=== PATIENT | female | born 1955 | race Caucasian/White ===

== ENCOUNTER 2021-11-16 07:57 | Outpatient (REF) | payer MEDICARE, SELFPAY ==
--- NOTE | ~2021-11-16 | MM_ITS ---
EXAMINATION: MM SCREENING DIGITAL BREAST TOMOSYNTHESIS, BILATERAL CLINICAL INFORMATION: Screening. Asymptomatic. The lifetime risk of breast cancer based on the Tyrer-Cuzick Model is 8%. COMPARISON: Mammography: None TECHNIQUE: Digital breast tomosynthesis is performed in both the craniocaudal and mediolateral oblique views along with computer-aided detection (CAD). Synthesized 2D images are generated from the tomosynthesis. FINDINGS: There are scattered areas of fibroglandular density (ACR BI-RADS breast composition Category b). There is a grouping of calcifications seen within the upper outer aspect of the right breast but which on tomographic views are seen to be vascular in nature. No abnormal dominant mass is appreciated. MM/MM tomosynthesis screening BI IMPRESSION: No mammographic evidence of malignancy. ASSESSMENT: BI-RADS 2: Benign RECOMMENDATION: Routine annual mammography screening. This patient's information was entered into a reminder system with a target due date for their next mammogram.
[2021-11-16 09:25] LABS: Alanine Aminotransferase 48 U/L (0-31); Albumin Level 4.5 g/dL (3.5-5.0); Alkaline Phosphatase 60 U/L (39-117); Anion Gap 11 (12-20); Aspartate Amino Transferase 37 U/L (5-31); Bilirubin Total 0.9 mg/dL (0.0-1.0); Blood Urea Nitrogen 14 mg/dL (9-16); Calcium 9.4 mg/dL (8.4-10.2); Carbon Dioxide 28 mmol/L (22-29); Chloride 105 mmol/L (96-108); Cholesterol 275 mg/dL; Estimated Glomerular Filt Rate 58; Glucose Fasting 118 mg/dL (60-99); HDL Cholesterol 56 mg/dL; LDL Cholesterol Calculated 202 mg/dl; Potassium 5.3 mmol/L (3.3-5.1); Sodium 139 mmol/L (135-145); Total Protein 7.2 g/dL (6.5-8.0); Triglycerides 89 mg/dL
== END 2021-11-16 07:58 | disposition home or self-care (01) ==
LOC: HO.MAMMO 07:57
PROVIDERS: PCP Internal Medicine; Visit Provider Internal Medicine
DX: Z00.00 Encounter for general adult medical examination without abnormal findings (principal); Z12.31 Encounter for screening mammogram for malignant neoplasm of breast
CPT/HCPCS: 36415; 77063; 77067; 80053; 80061

== ENCOUNTER 2022-06-13 09:25 | Outpatient (REF) | payer MEDICARE, SELFPAY ==
[2022-06-13 10:18] LABS: Alanine Aminotransferase 20 U/L (0-31); Albumin Level 4.6 g/dL (3.5-5.0); Alkaline Phosphatase 52 U/L (39-117); Anion Gap 15 (12-20); Aspartate Amino Transferase 21 U/L (5-31); Bilirubin Total 0.6 mg/dL (0.0-1.0); Blood Urea Nitrogen 12 mg/dL (9-16); Calcium 9.7 mg/dL (8.4-10.2); Carbon Dioxide 26 mmol/L (22-29); Chloride 104 mmol/L (96-108); Cholesterol 280 mg/dL; Estimated Glomerular Filt Rate > 60; Glucose Fasting 111 mg/dL (60-99); HDL Cholesterol 64 mg/dL; LDL Cholesterol Calculated 200 mg/dl; Potassium 4.9 mmol/L (3.3-5.1); Sodium 140 mmol/L (135-145); Total Protein 6.9 g/dL (6.5-8.0); Triglycerides 81 mg/dL
== END 2022-06-13 09:26 | disposition home or self-care (01) ==
LOC: HO.LAB 09:25
PROVIDERS: PCP Internal Medicine; Visit Provider Internal Medicine
DX: R73.02 Impaired glucose tolerance (oral) (principal); E78.5 Hyperlipidemia, unspecified
CPT/HCPCS: 36415; 80053; 80061

== ENCOUNTER 2022-10-20 13:51 | Outpatient (REF) | payer MEDICARE, SELFPAY ==
--- NOTE | ~2022-10-20 | XR_ITS ---
EXAMINATION: XR KNEE, RIGHT CLINICAL INFORMATION: Pain. COMPARISON: None available. TECHNIQUE: AP and lateral views of the right knee. FINDINGS: Bony alignment and mineralization are normal. The lateral, medial and patellofemoral joint space compartments are well-maintained. There is minimal peripheral osteophyte formation of the medial patellofemoral compartments. No fracture, dislocation or joint effusion is seen. There is no foreign body XR/XR knee RT 2V IMPRESSION: 1. There is minimal osteoarthritic change of the medial and patellofemoral joint space compartments of the right knee. 2. No right knee fracture, dislocation or joint effusion is seen.
== END 2022-10-20 13:52 | disposition home or self-care (01) ==
LOC: HO.XRAY 13:51
PROVIDERS: PCP Internal Medicine; Visit Provider Internal Medicine
DX: M25.561 Pain in right knee (principal)
CPT/HCPCS: 73560

== ENCOUNTER 2022-10-27 09:42 | Outpatient (REF) | payer MEDICARE, SELFPAY | END 2022-10-27 09:43 | disposition home or self-care (01) | LOC: HO.LAB 09:42 | PROVIDERS: PCP Internal Medicine; Visit Provider Internal Medicine | DX: I10 Essential (primary) hypertension (principal); E78.5 Hyperlipidemia, unspecified | CPT/HCPCS: 36415; 80053; 80061 ==

== ENCOUNTER 2022-11-08 08:53 | Outpatient (AMB) | payer MEDICARE, SELFPAY ==
[2022-11-08 08:55] VITALS: BP 148/82; PULSE 84; O2SAT 97; BMI 35.6
--- NOTE | 2022-11-08 08:55 | AM.OFFVISMDC ---
Intake Vital Signs 11/08/22 08:55 Height 5 ft 3 in Weight 201 lb BMI 35.6 BP 148/82 H Blood Pressure Location Lt brachial Position Sitting Pulse 84 Pulse Source Pulse Oximeter Temp Source Skin Pulse Oximetry (%) 97 Oxygen Delivery Method Room Air Intake Visit Reasons: AWV Intake Note: Patient is here for an Annual Wellness Visit. 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 Patient Dr. Doanto. Patient has an upcoming mammogram 11/2022. Patient has declined colon cancer screening such as colonoscopy or Cologuard and bone density screening. She denies changes in bowels. Up-to-date with immunizations. Patient reports history of partial hysterectomy, she does not know which organs she has left, reports last Pap smear about 16 years ago, will refer to Gynecology for an evaluation and a possible Pap smear, patient reports history of slightly abnormal Pap smears in the past. [place] of care was reviewed with the patient and she was provided with a screening schedule. End of life planning was discussed with the patient and she was provided with healthcare proxy and MOLST forms. [facility] Medical History Periorbital cellulitis of right eye Surgical History History of partial hysterectomy Family History Mother Stroke Father No problems noted. Social History Housing: House Alcohol intake: current Alcohol intake frequency: holidays/special occasions only Alcohol type: hard liquor Patient Tobacco Use Status: Former Tobacco user Tobacco use type: Cigarette e-Cigarette/Vaping Use: Never Used Second Hand Smoke Exposure: No service: No Current occupational status: unemployed Cognitive needs: No Hearing needs: No Vision needs: No Questionnaire Medicare Wellness Checkup [age] 65-70 What gender do you identify with?: female During the past 4 weeks, how much have you been bothered by emotional problems such as feeling anxious, depressed, irritable, sad or downhearted, and blue?: not at all During the past 4 weeks, has your physical & emotional health limited your social activities with family, friends, neighbors, or groups?: not at all During the past 4 weeks, how much bodily pain have you generally had?: severe pain During the past 4 weeks, was someone available to help you if you needed & wanted help?: yes, as much as I wanted During the past 4 weeks, what was the hardest physical activity you could do for at least 2 minutes?: very heavy Can you get to places out of walking distance without help? (For eg., can you travel alone on buses, taxis or drive your car?): Yes Can you go shopping for groceries or clothes without someone's help?: Yes Can you prepare your own meals?: Yes Can you do your housework without help?: Yes Because of any health problems, do you need the help of another person with your personal care needs such as eating, bathing, dressing or getting around the house?: No Can you handle your own money without help?: Yes During the past 4 weeks, how would you rate your health in general?: excellent During the past 4 weeks how have things been going for you?: very well; could hardly better Are you having difficulties driving your car?: no During past 4 weeks, have you been bothered by the following: never: Falling or dizzy when standing up, Sexual problems?, Trouble eating well?, Teeth or denture problems?, Problems using the telephone? and Tiredness or fatigue? Have you fallen 2 or more times in the past year?: No Are you afraid of falling?: No Are you a smoker?: no During the past 4 weeks, how many drinks of wine, beer, or other alcoholic beverages did you have?: no alcohol at all Do you exercise for about 20 minutes 3 or more times a week?: yes, most of the time Have you been given information to help with the following?: no: Hazards in your house that might hurt you? and no: Keeping track of your medications? How often do you have trouble taking medicines the way you have been told to take them?: I always take medicine as prescribed How confident are you that you can control & manage most of your health problems?: very confident What is your race?: White Mini Mental State Exam (MMSE) Orientation What is the (year) (season) (date) (day) (month)?: year, season, date, day and month Score Score: 5 Activity of Daily Living Bathing - sponge bath, tub bath or shower: receives no assistance (gets in/out by self, if usual bathing means Dressing - getting clothes from closets & drawers, including inner/outer garments & fasteners.: gets clothes & gets completely dressed without help Toileting - going to the 'toilet room' for urine/bowel elimination & cleaning self/arranging clothes: goes to toilet room, cleans self, arranges clothes without help Transfer: moves in & out of bed and chair without help (may use support object) Continence: controls urination/bowel movements completely by self Feeding: feeds self without help Total Score: 0 Information obtained from: patient Using telephone: independent Traveling: independent Shopping: independent Preparing meals: independent Housework: independent Taking medicine: independent Managing money: independent PHQ-9 Over the last 2 weeks, how often have you been bothered by any of the following problems? 1. Little interest or pleasure in doing things: not at all 2. Feeling down, depressed, or hopeless: not at all 3. Trouble falling or staying asleep, or sleeping too much: not at all 4. Feeling tired or having little energy: not at all 5. Poor appetite or overeating: not at all 6. Feeling bad about yourself - or that you are a failure or have let yourself or your family down: not at all 7. Trouble concentrating on things, such as reading the newspaper or watching television: not at all 8. Moving or speaking so slowly that other people could have noticed. Or the opposite - being so fidgety or restless that you have been moving around a lot more than usual: not at all 9. Thoughts that you would be better off or of hurting yourself in some way: not at all Total score: 0 Depression Screening Interpretation: Negative 50751 - PHQ-9 Billing: Yes Source: Developed by Drs. Chaz Mitchell, Tina Tobin, Elias Chen and colleagues, with an educational corinna from [employer]. EUNICE-7 AMB Questionnaire EUNICE-7 Date EUNICE - 7 assessed: 11/08/22 Feeling nervous, anxious, or on edge: 0 = Not at all Not being able to stop or control worryin = Not at all Worrying too much about different things: 0 = Not at all Trouble relaxin = Not at all Being so restless that it is hard to sit still: 0 = Not at all Becoming easily annoyed or irritable: 0 = Not at all Feeling afraid as if something awful might happen: 0 = Not at all Total EUNICE-7 score (0-4 normal; 5-9 mild; 10-14 moderate; 15-21 severe): 0 Source: Developed by Drs. Chaz Mitchell, Elias Jha and colleagues, with an educational corinna from [employer]. EUNICE-7 Assessment Billing EUNICE-7 Assessment Tool: EUNICE-7 Assessment 91241 AUDIT C Alcohol Use Questionnaire (AUDIT-C) 1. How often do you have a drink containing alcohol?: Never 3. How often do you have six or more drinks on one occasion?: Never Total Score: 0 Score Reviewed/Action Taken: No Thrive Questionnaire Date Thrive assessed: 06/13/22 Physical Exam Vital Signs: Last Vital Signs Pulse 84 11/08/22 08:55 BP 148/82 H 11/08/22 08:55 Pulse Ox 97 11/08/22 08:55 Oxygen Delivery Method Room Air 11/08/22 08:55 BMI result Body Mass Index 35.6 Const General: cooperative and no acute distress Orientation/consciousness: patient oriented x3 HEENT Other: Whisper test: pass Neuro Other: Balance: Normal Get up and walk: able to Romberg: negative Tandem gait: able to General: patient oriented x3 Assessment & Plan Assessment & Plan (1) Cervical cancer screening: Code(s): Z12.4 - Encounter for screening for malignant neoplasm of cervix (2) Essential hypertension: Code(s): I10 - Essential (primary) hypertension Plan: Goal BP equal or less than 140/90 Continue losartan Low-sodium diet and weight loss (3) Obesity (BMI 35.0-39.9 without comorbidity): Code(s): E66.9 - Obesity, unspecified Plan: Healthy food choices and exercise as tolerated (4) Mixed hyperlipidemia: Code(s): E78.2 - Mixed hyperlipidemia Plan: Continue atorvastatin Low-cholesterol diet and weight loss (5) Physical exam: Code(s): Z00.00 - Encounter for general adult medical examination without abnormal findings (6) Colonoscopy refused: Code(s): Z53.20 - Procedure and treatment not carried out because of patient's decision for unspecified reasons 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 Z12.4 - Encounter for screening for malignant neoplasm of cervix Quality Reporting (2019) Fall Risk Screening ([facility] 139) Last assessed Fall Risk: 11/08/22 Fall risk assessment: No Falls in past year Depression/Bipolar (159/160/161/177) PHQ-9: Total score: 0 Coding Level of Care Code Medicare First (G0438) Diagnoses Cervical cancer screening Z12.4 Essential hypertension I10 Obesity (BMI 35.0-39.9 without comorbidity) E66.9 Mixed hyperlipidemia E78.2 Physical exam Z00.00 Colonoscopy refused Z53.20 CPT Codes Advance Care Planning - Time spent: 1-15 minutes, not on file ([id number]) Additional Codes EUNICE-7 Assessment Billing - EUNICE-7 Assessment Tool: EUNICE-7 Assessment 78057 ([id number]) Advance Care Planning Date of discussion: 11/08/22 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
== END 2022-11-08 09:21 | disposition home or self-care (01) ==
PROVIDERS: Visit Provider Nurse Practitioner Family
DX: Z00.00 Encounter for general adult medical examination without abnormal findings (principal); I10 Essential (primary) hypertension; Z68.35 Body mass index [BMI] 35.0-35.9, adult; E66.9 Obesity, unspecified; E78.2 Mixed hyperlipidemia; Z53.20 Procedure and treatment not carried out because of patient's decision for unspecified reasons
CPT/HCPCS: 1124F; G0438

== ENCOUNTER 2022-12-02 07:58 | Outpatient (REF) | payer MEDICARE, SELFPAY | END 2022-12-02 07:59 | disposition home or self-care (01) | LOC: HO.MAMMO 07:58 | PROVIDERS: PCP Internal Medicine; Visit Provider Internal Medicine | DX: Z12.31 Encounter for screening mammogram for malignant neoplasm of breast (principal) | CPT/HCPCS: 77063; 77067 ==

== ENCOUNTER → 2022-12-02 08:15 | Outpatient (BNV) | payer MEDICARE, SELFPAY | PROVIDERS: PCP Internal Medicine; Visit Provider Radiology Diagnostic Radiology | DX: Z12.31 Encounter for screening mammogram for malignant neoplasm of breast (principal) | CPT/HCPCS: 77063; 77067 ==

== ENCOUNTER 2023-03-22 07:52 | Outpatient (AMB) | payer MEDICARE, SELFPAY ==
[2023-03-22 07:59] VITALS: BP 150/70; PULSE 65; O2SAT 96; BMI 35.1
--- NOTE | 2023-03-22 07:59 | MHC.PC.OV ---
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 Accompanied by: Self / Same As Patient Allergies No Known Allergies Allergy (Verified 03/22/23 08:07) Medication List - Last Reconciled 03/22/23 by Bette Casillas MD atorvastatin 20 mg PO BEDTIME 90 days blood pressure monitor As directed losartan 25 mg PO DAILY 90 days Tobacco use date assessed: 06/13/22 Fall risk assessment: No Falls in past year Last assessed Fall Risk: 03/22/23 Dental Screening Dental Screen Date: 03/22/23 Did you have a dental visit in the last 12 months?: Yes Did you have a dental problem in the last 6 months where you did not have access to dental care?: No Was dental information given to patient?: Patient has dentist HPI HPI Comments History of Present Illness Details This is a 67-year-old female with hypertension, pure hypercholesterolemia and impaired glucose tolerance that complains of right leg pain that has been present for a few months crampy like in quality. This is aggravated by walking and was severe the past few days which has improved on its own. Will order ultrasound duplex to rule out DVT. Blood pressure elevated today and she did took her losartan. Blood pressure will be recheck in 3 weeks by nurse navigator. Last cholesterol was markedly improved with statins. Has elevated fasting blood glucose due to impaired glucose tolerance but denies any polyuria or polydipsia or unintentional weight loss. Fasting blood glucose will be repeated. [facility] Medical History (Updated 03/22/23 @ 08:15 by Bette Casillas MD) Periorbital cellulitis of right eye Surgical History History of partial hysterectomy Family History Mother Stroke Father No problems noted. Social History Housing: House Alcohol intake: current Alcohol intake frequency: holidays/special occasions only Alcohol type: hard liquor Patient Tobacco Use Status: Former Tobacco user Tobacco use type: Cigarette e-Cigarette/Vaping Use: Never Used Second Hand Smoke Exposure: No service: No Current occupational status: unemployed Cognitive needs: No Hearing needs: No Vision needs: No Questionnaire Thrive Questionnaire Date Thrive assessed: 06/13/22 EUNICE-7 AMB Questionnaire EUNICE-7 Date EUNICE - 7 assessed: 11/08/22 Source: Developed by Drs. Chaz Mitchell, Tina Tobin, Elias Chen and colleagues, with an educational corinna from [employer]. Review of Systems Const All systems reviewed & are unremarkable except as noted in HPI and below Eyes Reports no additional complaints, Denies change in vision and Denies other visual disturbances Card Denies chest pain at rest, Denies chest pain with activity, Denies edema, Denies irregular heart rhythm, Denies claudication, Denies dyspnea, Denies dyspnea on exertion, Denies orthopnea, Denies paroxysmal nocturnal dyspnea and Denies slow heart rate Resp Denies cough, Denies dyspnea and Denies dyspnea on exertion GI Denies abdominal pain, Denies change in bowel habits, Denies excessive flatus, Denies nausea and Denies vomiting Denies urinary incontinence, Denies urinary hesitancy and Denies urinary urgency Musc Denies abnormal gait, Denies atrophy, Denies deformity and Denies limited range of motion Skin/Breast Denies bleeding lesions, Denies changing lesions and Denies rash Neuro Denies abnormal gait and Denies lack of coordination Physical exam (Primary Care) Vital Signs: Last Vital Signs Pulse 65 03/22/23 07:59 BP 150/70 H 03/22/23 07:59 Pulse Ox 96 03/22/23 07:59 Oxygen Delivery Method Room Air 03/22/23 07:59 BMI result Body Mass Index 35.1 Tobacco/Smoking Status: Tobacco use Status Tobacco use date assessed 06/13/22 03/22/23 08:03 Patient Tobacco Use Status Former Tobacco user 03/22/23 08:03 Tobacco use type Cigarette 03/22/23 08:03 e-Cigarette/Vaping Use Never Used 03/22/23 08:03 Thrive Assessment: Date of Thrive Assessment Date Thrive assessed 06/13/22 03/22/23 08:03 Eyes General: appearance normal, both eyes and all related structures Eyelids: Yes eyelids normal Conjunctivae: conjunctivae normal Neck Neck: Yes normal visual inspection and Yes supple Resp Effort & Inspection: normal respiratory effort Auscultation: clear to auscultation bilaterally Cardio Jugular venous distension: no JVD Rate: regular rate Rhythm: regular rhythm Heart sounds: S1 normal heart sound present and S2 normal heart sound present Extrem General: Yes full ROM Office Procedures Flu Questionnaire Does the patient have a severe egg allergy?: No Does the patient have severe life threatening allergies?: No Does the patient have a fever or illness today?: No Has the patient ever had Guillain-Sneads Syndrome?: No Has the patient ever had any past reaction to a flu shot?: No Immunizations flu vacc [id number] 6mos up(PF) 60 mcg(15 mcgx4)/0.5 mL IM syringe Performing Provider: Bette Casillas MD Performing Location: [facility] Administered by: YOVANY Mae on 03/22/23 08:23 Dose Route Admin Location Dispensed Lot Number Expiration Date NDC Bean Snapper 0.5 mL IM Left Deltoid 0.5 mL [id number] 10/22/23 84714-653-55 Donews VIS Given Date VIS Provided VIS Publication Date 03/22/23 Single Vaccine 20 Eligibility Eligibility Date Funding Source Not [facility] Eligible 03/22/23 Private Assessment and Plan Assessment & Plan (1) Impaired glucose tolerance: Code(s): R73.02 - Impaired glucose tolerance (oral) Plan: Repeat fasting blood glucose. (2) Essential hypertension: Code(s): I10 - Essential (primary) hypertension Plan: Continue losartan. Blood pressure goal is equal or less than 130/80. Blood pressure will be recheck in 3 weeks by nurse navigator. (3) Pure hypercholesterolemia: Code(s): E78.00 - Pure hypercholesterolemia, unspecified Plan: Continue statins. (4) Right leg pain: Code(s): M79.604 - Pain in right leg Plan: Ultrasound venous Doppler ordered to rule out DVT. Orders: Orders US venous duplex LE RT Today M79.604 - Pain in right leg Comprehensive [place]. Panel Fast Today R73.02 - Impaired glucose tolerance (oral) Influenza [id number] Immunization Today Z23 - Encounter for immunization Magnesium Today R25.2 - Cramp and spasm Medications: Refilled atorvastatin 20 mg PO BEDTIME 90 days 90 tabs 1RF E78.00 - Pure hypercholesterolemia, unspecified losartan 25 mg PO DAILY 90 days 90 tabs 1RF I10 - Essential (primary) hypertension Coding Level of Care Code Est Pt Level 4 (95505) Diagnoses Impaired glucose tolerance R73.02 Essential hypertension I10 Pure hypercholesterolemia E78.00 Right leg pain M79.604 Time Spent (min) 23
[2023-03-22 08:35] VITALS: BP 150/70
== END 2023-03-22 08:23 | disposition home or self-care (01) ==
PROVIDERS: PCP Internal Medicine; Visit Provider Internal Medicine
DX: R73.02 Impaired glucose tolerance (oral) (principal); I10 Essential (primary) hypertension; E78.00 Pure hypercholesterolemia, unspecified; M79.604 Pain in right leg; Z23 Encounter for immunization
CPT/HCPCS: 90471; 90686; 99214

== ENCOUNTER 2023-03-22 08:46 | Outpatient (REF) | payer MEDICARE, SELFPAY ==
--- NOTE | ~2023-03-22 | US_ITS ---
EXAMINATION: US VENOUS ULTRASOUND WITH DOPPLER LOWER EXTREMITY, RIGHT CLINICAL INFORMATION: Right leg pain COMPARISON: None available. TECHNIQUE: Ultrasound of the deep veins is performed from the hip to the calf with compression sonography and color and pulse Doppler assessment. Spectral analysis with color-flow imaging is performed. FINDINGS: There is normal venous compression and respiratory variation and augmented flow. The visualized common femoral vein, superficial femoral vein, profunda femoral vein, popliteal vein, and the trifurcation region shows no evidence of deep venous thrombosis. A complex Meyer's cyst is noted measuring approximately 4 x 1.1 x 2.9 cm. If the patient's symptoms persist, followup ultrasound in 5 days 7 days might be of value to exclude proximal propagation from a non-visualized calf vein. US/US venous duplex LE RT IMPRESSION: No DVT demonstrated in the right lower extremity. Complex Meyer's cyst.
== END 2023-03-22 08:47 | disposition home or self-care (01) ==
LOC: HO.US 08:46
PROVIDERS: PCP Internal Medicine; Visit Provider Internal Medicine
DX: M79.604 Pain in right leg (principal)
CPT/HCPCS: 93971

== ENCOUNTER → 2023-04-18 09:57 | Outpatient (BNVA) | payer MEDICARE, SELFPAY | PROVIDERS: PCP Internal Medicine; Visit Provider Orthopaedic Surgery ==

== ENCOUNTER 2023-05-03 10:40 | Outpatient (REF) | payer MEDICARE, SELFPAY ==
[2023-05-06 13:39] LABS: HPV mRNA E6/E7 rflx Not Detected (Not Detected)
== END 2023-05-03 10:41 | disposition home or self-care (01) ==
LOC: HO.LNP 10:40
PROVIDERS: PCP Internal Medicine; Visit Provider Advanced Practice Midwife
DX: Z01.419 Encounter for gynecological examination (general) (routine) without abnormal findings (principal); Z86.001 Personal history of in-situ neoplasm of cervix uteri
CPT/HCPCS: 87624; 88142; G0101

== ENCOUNTER 2023-05-03 10:40 | Outpatient (AMB) | payer MEDICARE, SELFPAY ==
--- NOTE | 2023-05-03 10:50 | A.OFFVIS_ITS ---
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 She is doing well with no concerns. Attempting to eat a healthy. She has limited activity level with her Meyer's cyst. Currently not sexually active in 15 yrs. Denies any vaginal dryness or irritation. Last pap smear; 11 yrs. ago. Carcinoma in situ- hyst. Last mammogram; 2022. Colonoscopy is not UTD, she declines. FH maternal aunt with breast cancer. [facility] Medical History High blood pressure Periorbital cellulitis of right eye Surgical History (Updated 05/03/23 @ 12:14 by Kiley Tse CNM) Hx of section History of partial hysterectomy Family History Mother Stroke Father No problems noted. Maternal Aunt Breast cancer Social History Housing: House Alcohol intake: current Alcohol intake frequency: holidays/special occasions only Alcohol type: hard liquor Patient Tobacco Use Status: Former Tobacco user Tobacco use type: Cigarette e-Cigarette/Vaping Use: Never Used Second Hand Smoke Exposure: No service: No Current occupational status: unemployed Cognitive needs: No Hearing needs: No Vision needs: No Female Reproductive History Menstrual Age of Menarche: 17 control method: permanent sterilization Total pregnancies: 2 Full term: 2 Number of Living Children: 3 Multiple births: 1 Date of last pap smear: 06/13/08 (negative) History of abnormal pap smear: Yes (2005 HUSAM 3, 2004 HGSIL, 2003 HUSAM 1, 2002 ASCUS) Date of Mammogram: 12/02/22 Review of Systems Const All systems reviewed & are unremarkable except as noted in HPI and below Reports as per HPI Eyes Reports no additional complaints ENT Reports no additional complaints Card Reports no additional complaints Resp Reports no additional complaints GI Reports as per HPI and Reports no additional complaints Reports as per HPI Musc Reports no additional complaints Skin/Breast Reports as per HPI Neuro Reports no additional complaints Psych Reports no additional complaints Endo Reports no additional complaints Oneil/Lymph Reports no additional complaints Aller/Immun Reports no additional complaints Physical Exam Vital Signs: Last Vital Signs BP 142/72 H 05/03/23 10:51 BMI result Body Mass Index 34.3 Const General: cooperative, healthy appearing, no acute distress, well developed and alert Orientation/consciousness: patient oriented x3 HEENT Head: Yes normal to inspection Eyes General: appearance normal, both eyes and all related structures Neck Neck: Yes normal visual inspection Thyroid: Thyroid normal Chest Chest palpation & inspection: normal inspection of the chest and other (no puckering, dimpling, peau de orange, retraction, discharge, masses) Breast/axilla inspection: normal inspection of the breasts Breast/axilla palpation: normal palpation of the breasts Resp Effort & Inspection: normal respiratory effort GI Inspection: Yes normal to inspection and Yes scar Palpation (GI): Soft to palpation Rectal Exam - Female: deferred General: Yes bladder normal to palpation External Female Exam: normal external appearance and normal appearance of the urethra Speculum Exam - Vagina: normal appearance of the vagina, normal palpation, normal vaginal discharge and vagina atrophic Speculum Exam - Cervix: normal appearance of the cervix and Cervix absent (Vaginal cuff no lesions or nodules, atrophic let slightly with Pap) Bimanual exam- vagina & uterus: normal bimanual exam, normal palpation, bladder normal to palpation and uterus absent Bimanual Exam- Adnexa, other: no masses Skin General skin exam: no rashes or lesions noted Rashes: no rashes Neuro General: patient oriented x3 Cognition (Neuro): normal cognition Extrem General: Yes normal to inspection Psych Attitude: cooperative Thought process: Normal thought process present Assessment & Plan Assessment & Plan (1) Encounter for well woman exam with routine gynecological exam: Code(s): Z01.419 - Encounter for gynecological examination (general) (routine) without abnormal findings Plan Discussed: Current recommendations for pap smears per ASCCP guidelines. Status post hysterectomy Pap for 25 years Q 3 years until 2030. Breast awareness, periodic self breast exams and yearly mammogram. Maintain a healthy lifestyle, well balanced diet including Calcium 1,200 mg and Vitamin D 600 IU daily, and routine exercise. Contact the office with any postmenopausal bleeding. All of her questions and concerns were addressed to the best of my ability. 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 This note is constructed using voice recognition software. While every effort has been made to ensure accuracy, web marketing assistant errors may have been included. Orders: Orders Pap Smear Today Z86.001 - Personal history of in-situ neoplasm of cervix uteri Coding Level of Care Code New Pt Prev Care >65yr (19420) Diagnoses Encounter for well woman exam with routine gynecological exam Z01.419
[2023-05-03 10:51] VITALS: BP 142/72; BMI 34.3
== END 2023-05-03 11:46 | disposition home or self-care (01) ==
LOC: HO.HWS 10:40
PROVIDERS: PCP Internal Medicine; Visit Provider Advanced Practice Midwife
DX: Z01.419 Encounter for gynecological examination (general) (routine) without abnormal findings (principal)
CPT/HCPCS: G0101

== ENCOUNTER 2023-11-07 20:39 | Emergency (ER) | payer MEDICARE, SELFPAY ==
--- NOTE | ~2023-11-07 | XR_ITS ---
EXAMINATION: XR KNEE, RIGHT CLINICAL INFORMATION: Worsening pain COMPARISON: None available. TECHNIQUE: Four views of the right knee. FINDINGS: There is loss of medial and patellofemoral compartment joint space with periarticular spurring. There are no loose bodies or joint effusion. No acute fracture or dislocation seen. There is no abnormal joint effusion. XR/XR knee RT 4V IMPRESSION: Mild degenerative changes medial and patellofemoral compartment. No visible acute fracture or dislocation seen.
--- NOTE | ~2023-11-07 | US_ITS ---
EXAMINATION: US VENOUS ULTRASOUND WITH DOPPLER LOWER EXTREMITY, RIGHT CLINICAL INFORMATION: Right lower extremity pain. COMPARISON: Venous ultrasound dated 03/22/2023. TECHNIQUE: Ultrasound of the deep veins is performed from the hip to the calf with compression sonography and color and pulse Doppler assessment. Spectral analysis with color-flow imaging is performed. FINDINGS: There is normal venous compression and respiratory variation and augmented flow. The visualized common femoral vein, superficial femoral vein, profunda femoral vein, popliteal vein, and the trifurcation region shows no evidence of deep venous thrombosis. There is no significant popliteal fossa cyst. The previously noted right popliteal fossa Meyer's cyst now appears increasingly solid, measuring 4.7 x 1.4 x 2.1 cm. If the patient's symptoms persist, followup ultrasound in 5 days 7 days might be of value to exclude proximal propagation from a non-visualized calf vein. US/US venous duplex LE RT IMPRESSION: 1. No DVT demonstrated in the right lower extremity. 2. The previously noted right popliteal fossa Meyer's cyst now shows a semisolid appearance, with calcifications. Question interim partial resorption or hemorrhage. This could be more fully evaluated with an MRI examination of the right knee, if clinically indicated.
[2023-11-07 20:47] VITALS: BP 187/75; PULSE 77; RESP 18; TEMP 36.8; O2SAT 95; BMI 32.6
--- NOTE | 2023-11-07 20:48 | ED.LOWEXIN ---
HPI - Extremity Injury (Lower) General Chief Complaint: Extremity Injury, Lower Stated Complaint: R leg pain, no injury Time Seen by Provider: 11/07/23 23:31 Source: patient, family and old records reviewed Mode of arrival: ambulatory Limitations: no limitations History of Present Illness ED Provider: GALLO HPI Narrative: 68 yo female with PMH of HTN, HLD, asthma R knee pain has done months of PT and has had cortisone injections without sig improvement she had PT today that worsened pain no numbness, weakness, no new falls. She cannot take much more of this and is not getting better. complaint: knee injury Onset (ago): month(s) Injury: Right: knee Place: home Severity: moderate Relieving factors: rest Exacerbating factors: movement Other symptoms: none Treatments prior to arrival: other Related Data Previous Rx's ?Medication ?Instructions ?Recorded blood pressure monitor #1 ea 11/18/21 atorvastatin 20 mg tablet 20 mg PO BEDTIME 90 days #90 tabs 06/08/23 losartan 25 mg tablet 25 mg PO DAILY 90 days #90 tabs 06/08/23 diclofenac sodium 1 % topical gel 2 g topical QID #100 grams 11/07/23 (Voltaren Arthritis Pain) Allergies Allergy/AdvReac Type Severity Reaction Status Date / Time No Known Allergies Allergy Verified 11/07/23 20:49 Review of Systems Review of Systems: Constitutional : No Fever, No Chills ENT/Mouth : No Ear Pain, No Hoarseness, No sore throat Eyes: No Eye Pain, No Swelling, No Redness, No Foreign Body Cardiovascular : No Chest Pain, No SOB Respiratory : No Cough, No Dyspnea Gastrointestinal : No Nausea, No Vomiting, No Diarrhea, No abdominal Pain Genitourinary : No Dysuria, No Hematuria Musculoskeletal : positive joint pain, No Myalgias, No Joint Swelling Skin : No Skin lacerations, No rash Neuro : No Weakness, No Numbness, No Loss of Consciousness, No Dizziness, No Headache Psych : No Anxiety/Panic, No Depression All other systems reviewed and are negative [facility] Past Medical History Attestation statement: The following information was validated with the patient. Source: old records reviewed Medical History High blood pressure Periorbital cellulitis of right eye Surgical History Hx of section History of partial hysterectomy Family History Family History Mother Stroke Father No problems noted. Maternal Aunt Breast cancer Social History Social History Housing: House Alcohol intake: current Alcohol intake frequency: does not drink Alcohol type: hard liquor Patient Tobacco Use Status: Former Tobacco user Tobacco use type: Cigarette Smoked in Last 30 Days: No e-Cigarette/Vaping Use: Never Used Second Hand Smoke Exposure: No Use of substances other than those prescribed or required for medical reasons: No Advance Directives: No Advance Directives Information Provided: Yes Do you have a plan to hurt others: No Plan service: No Current occupational status: unemployed Cognitive needs: No Hearing needs: No Vision needs: No Physical Exam Vital Signs: Vital Signs: Last Vital Signs Temp 97.0 F 11/08/23 00:26 Pulse 77 11/08/23 00:26 Resp 16 11/08/23 00:26 BP 205/80 H 11/08/23 00:26 Pulse Ox 97 11/08/23 00:26 O2 Del Method Room Air 11/08/23 00:26 BMI result Body Mass Index 32.6 Appearance: Alert. Oriented X3. No acute distress. Eyes: Pupils equal, round and reactive to light. ENT: Pharynx normal. Neck: Normal inspection. Neck supple. CVS: Pulses normal. Respiratory: No respiratory distress. Abdomen: atraumatic Skin: Skin warm and dry. Normal skin color. Extremities: No lower extremity edema. R knee ttp medial meniscus no redness, warmth, small effusion noted, distal NV intact Neuro: Oriented X 3. No motor deficit. No sensory deficit. Course Course Course Narrative: This is a Rapid Medical Examination (RME) performed by Emma Aguirre PA-C in triage. Full HPI, ROS, assessment and treatment plan per primary provider in the Main ED. 68 yo female with history of RA and history of right sided Meyer's cyst presents to the ER for evalution of worsening RLE pain after working with PT today. reports feeling a swollen vein behind her knee. LE doppler showed bakers cyst in February. hx chronic knee pain, has gotten cortisone shot in the past and arthrocentesis in the past. Follows w/ Ortho in [place] Plan: LE doppler of the RLE Reevaluation(s) Reevaluation #1: asymptomatic HTN Medical Decision Making Medical Decision Making MDM Narrative: 68 yo female with PMH of HTN, HLD, asthma here with c/o worsening R knee pain post PT no signs of infection no trauma distal NV intact xrays and DVT study ordered she has done ample PT and injections will refer to our PT and discussed options of MRI with her PCP has not had MRI yet. Differential Diagnosis Differential Diagnoses: The differential diagnosis associated with the presentation includes arthritis, bakers cyst, DVT Independent Interpretation I performed an independent interpretation of an: Plain X-Ray (arthritis) and Ultrasound (no DVT) Radiology Impression Discussion of test interpretation with radiology: I have reviewed the radiologist's reading. Independent Historian Clinical information obtained from an independent historian. History obtained from or confirmed by: Spouse External Record Review External record reviewed: Office record Prescription Management I considered prescription management with: Pain Medication Discharge Plan Discharge Clinical Impression: Meyer's cyst of knee Qualifiers: Laterality: left Qualified Code(s): M71.22 - Synovial cyst of popliteal space [Meyer], left knee Chronic knee pain Qualifiers: Laterality: left Qualified Code(s): M25.562 - Pain in left knee Patient Disposition: Home, Self-Care Instructions: Bakers Cyst (ED), Arthralgia (ED) Additional Instructions: YOU NEED A MRI OF YOUR KNEE AT THIS POINT GIVEN THE CHANGE IN BAKERS CYST WELL NO IMPROVEMENT IN THE KNEE THERE COULD BE INTERNAL DERANGEMENT THAT NEEDS TREATMENT. CALL YOUR PRIMARY CARE OR ORTHOPEDIC DOCTOR TO GET THIS RETURN FOR ANY WORSENING SYMPTOMS OR CONCERNS FINDINGS: There is loss of medial and patellofemoral compartment joint space with periarticular spurring. There are no loose bodies or joint effusion. No acute fracture or dislocation seen. There is no abnormal joint effusion. XR/XR knee RT 4V IMPRESSION: Mild degenerative changes medial and patellofemoral compartment. No visible acute fracture or dislocation seen. US/US venous duplex LE RT IMPRESSION: 1. No DVT demonstrated in the right lower extremity. 2. The previously noted right popliteal fossa Meyer's cyst now shows a semisolid appearance, with calcifications. Question interim partial resorption or hemorrhage. This could be more fully evaluated with an MRI examination of the right knee Prescriptions: New diclofenac sodium [Voltaren Arthritis Pain] 1 % gel 2 g topical QID Qty: 100 0RF Rx Instructions: apply to single knee No Action atorvastatin 20 mg tablet 20 mg PO BEDTIME 90 Days Qty: 90 1RF losartan 25 mg tablet 25 mg PO DAILY 90 Days Qty: 90 1RF (DME) blood pressure monitor Kit See Rx Instructions .Route Qty: 1 0RF Rx Instructions: As directed Referrals: Patti Abraham PA-C [Physician Business Systems Advisor] - (our orthopedics team) Interventions: ED Discharge Assessment Last Done: 11/08/23 00:26 Discharge Date/Time: 11/08/23 00:28 Print Language: Italian
[2023-11-07 23:33] VITALS: BP 205/80; PULSE 77; RESP 16; TEMP 36.1; O2SAT 97
--- NOTE | 2023-11-07 23:40 | PC.NURSE ---
Pt ca&ox4, no signs of distress. Pt reports / rt leg pain, that became worse after PT Dr Oconnor aware of pts b/p. Pt reports hasnt taken home meds so reports b/p will be high. Pts at bedside. Plan of care ongoing.
[2023-11-08 00:26] VITALS: BP 205/80; PULSE 77; RESP 16; TEMP 36.1; O2SAT 97
== END 2023-11-08 00:28 | disposition home or self-care (01) ==
PROVIDERS: Emergency Provider Emergency Medicine; PCP Internal Medicine
DX: M71.21 Synovial cyst of popliteal space [Baker], right knee (principal); R60.0 Localized edema; M25.561 Pain in right knee
CPT/HCPCS: 73564; 93971; 99284

== ENCOUNTER 2023-11-28 12:55 | Outpatient (AMB) | payer MEDICARE, SELFPAY ==
--- NOTE | 2023-11-28 13:06 | AM.OFFVISMDC ---
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 Mammogram done less than a year ago was normal. Pap smear done few months ago was normal. Declines colonoscopy, Cologuard or fit does. Has never had a DEXA scan and I will order it. She complains of right knee pain and has not been able to walk. Had x-ray shows mild degeneration of knee. Had physical therapy with no improvement. Had local steroid injections with no improvement. I will refer her to ortho. She also has a stye in the right eye that started yesterday. She has elevated blood pressure that will be recheck in 3 weeks by nurse navigator. She is compliant with her medications. [facility] handed to patient. [facility] Medical History (Updated 11/28/23 @ 13:58 by Bette Casillas MD) High blood pressure Periorbital cellulitis of right eye Surgical History Hx of section History of partial hysterectomy Family History Mother Stroke Father No problems noted. Maternal Aunt Breast cancer Social History (Updated 11/28/23 @ 13:29 by Bette Casillas MD) Housing: House Alcohol intake: current Alcohol intake frequency: does not drink Alcohol type: wine Patient Tobacco Use Status: Former Tobacco user Tobacco use type: Cigarette e-Cigarette/Vaping Use: Never Used Second Hand Smoke Exposure: No service: No Current occupational status: unemployed Cognitive needs: No Hearing needs: No Vision needs: No Female Reproductive History Menstrual Age of Menarche: 17 Questionnaire Medicare Wellness Checkup What [age] 65-69 What gender do you identify with?: female During the past 4 weeks, how much have you been bothered by emotional problems such as feeling anxious, depressed, irritable, sad or downhearted, and blue?: not at all During the past 4 weeks, has your physical & emotional health limited your social activities with family, friends, neighbors, or groups?: not at all During the past 4 weeks, how much bodily pain have you generally had?: mild pain During the past 4 weeks, was someone available to help you if you needed & wanted help?: yes, as much as I wanted During the past 4 weeks, what was the hardest physical activity you could do for at least 2 minutes?: moderate Can you get to places out of walking distance without help? (For eg., can you travel alone on buses, taxis or drive your car?): Yes Can you go shopping for groceries or clothes without someone's help?: Yes Can you prepare your own meals?: Yes Can you do your housework without help?: Yes Because of any health problems, do you need the help of another person with your personal care needs such as eating, bathing, dressing or getting around the house?: No Can you handle your own money without help?: Yes During the past 4 weeks, how would you rate your health in general?: good During the past 4 weeks how have things been going for you?: pretty well Are you having difficulties driving your car?: no Do you always fasten your seat belt when you are in a car?: yes, usually During past 4 weeks, have you been bothered by the following: never: Falling or dizzy when standing up, Sexual problems?, Trouble eating well?, Teeth or denture problems?, Problems using the telephone? and Tiredness or fatigue? Have you fallen 2 or more times in the past year?: No Are you afraid of falling?: No Are you a smoker?: no During the past 4 weeks, how many drinks of wine, beer, or other alcoholic beverages did you have?: no alcohol at all Do you exercise for about 20 minutes 3 or more times a week?: yes, some of the time Have you been given information to help with the following?: yes: Hazards in your house that might hurt you? and yes: Keeping track of your medications? How often do you have trouble taking medicines the way you have been told to take them?: I always take medicine as prescribed How confident are you that you can control & manage most of your health problems?: very confident What is your race?: White Mini Mental State Exam (MMSE) Orientation What is the (year) (season) (date) (day) (month)?: year, season, date, day and month Where are we (state) (county) (town or city) (hospital) (floor)?: state, county, town or city, hospital/clinic and floor Registration Name of 3 unrelated objects clearly and slowly, then ask patient to repeat all 3 of them. (1st repeat determines score. Make sure they can repeat all three): object 1, object 2 and object 3 Attention & Calculation (CHOOSE ONE) Spell WORLD backwards (DLROW): 5 letters Recall Ask patient to repeat the 3 items from question #3.: object 1 and object 2 Language Show patient a wristwatch & ask what it is. Repeat for pencil.: watch and pencil Ask the patient to repeat the phrase 'No ifs, ands, or buts' after you.: correct Ask the patient to 'take a piece of paper with their right hand' 'fold paper in half' 'place paper on floor': take paper in right hand, fold paper in half and place paper on floor Print the sentence 'CLOSE YOUR EYES' on a piece. If patient actually closes eyes then score.: followed written direction Give patient a blank piece of paper & ask to write a sentence. Score if it contains a noun & verb.: sentence contains subject and verb Ask patient to copy figure of intersecting pentagons exactly. Score if all 10 angles & 2 intersects are included.: all 10 angles present & 2 are intersected Score Score: 29 Activity of Daily Living Bathing - sponge bath, tub bath or shower: receives no assistance (gets in/out by self, if usual bathing means Dressing - getting clothes from closets & drawers, including inner/outer garments & fasteners.: gets clothes & gets completely dressed without help Toileting - going to the 'toilet room' for urine/bowel elimination & cleaning self/arranging clothes: goes to toilet room, cleans self, arranges clothes without help Transfer: moves in & out of bed and chair without help (may use support object) Continence: controls urination/bowel movements completely by self Feeding: feeds self without help Total Score: 0 Information obtained from: patient Using telephone: independent Traveling: independent Shopping: independent Preparing meals: independent Housework: independent Taking medicine: independent Managing money: independent PHQ-9 Over the last 2 weeks, how often have you been bothered by any of the following problems? 1. Little interest or pleasure in doing things: not at all 2. Feeling down, depressed, or hopeless: not at all 3. Trouble falling or staying asleep, or sleeping too much: not at all 4. Feeling tired or having little energy: not at all 5. Poor appetite or overeating: not at all 6. Feeling bad about yourself - or that you are a failure or have let yourself or your family down: not at all 7. Trouble concentrating on things, such as reading the newspaper or watching television: not at all 8. Moving or speaking so slowly that other people could have noticed. Or the opposite - being so fidgety or restless that you have been moving around a lot more than usual: not at all 9. Thoughts that you would be better off or of hurting yourself in some way: not at all Total score: 0 Depression Screening Interpretation: Negative Depression Screening Done: Yes 97294 - PHQ-9 Billing: Yes Source: Developed by Drs. Chaz Mitchell, Tina Tobin, Elias Chen and colleagues, with an educational corinna from [employer]. AUDIT C Alcohol Use Questionnaire (AUDIT-C) 1. How often do you have a drink containing alcohol?: Never Total Score: 0 Score Reviewed/Action Taken: No Thrive Questionnaire Date Thrive assessed: 11/28/23 I am a: Patient What is your living situation today?: I have a steady place to live Within the past 12 months, did the food you bought not last and you didn't have the money to get more?: Never true Within the past 12 months, did you worry whether your food would run out before you got money to buy more?: Never true Do you have trouble paying for medicines?: No Do you have trouble getting transportation to medical appointments?: No Do you have trouble paying your heating and electricity bill?: No Do you have trouble taking care of your child, family member or friend?: No Do you have trouble with day-to-day activities such as bathing, preparing meals, shopping, managing finances, etc.?: No Are you currently unemployed and looking for a job?: No Are you interested in more education?: No Please select the resources that you would like help with: None Currently or been in a relationship where the following occur: No concerns reported THRIVE Score: 0 Fall Risk Assessment Fall Risk Assessment Fall risk assessment: No Falls in past year EUNICE-7 AMB Questionnaire EUNICE-7 Date EUNICE - 7 assessed: 11/28/23 Feeling nervous, anxious, or on edge: 0 = Not at all Not being able to stop or control worryin = Not at all Worrying too much about different things: 0 = Not at all Trouble relaxin = Not at all Being so restless that it is hard to sit still: 0 = Not at all Becoming easily annoyed or irritable: 0 = Not at all Feeling afraid as if something awful might happen: 0 = Not at all Total EUNICE-7 score (0-4 normal; 5-9 mild; 10-14 moderate; 15-21 severe): 0 Source: Developed by Drs. Chaz Mitchell, Tina Tobin, Elias Chen and colleagues, with an educational corinna from [employer]. EUNICE-7 Assessment Billing EUNICE-7 Assessment Tool: EUNICE-7 Assessment 15825 Review of Systems Const All systems reviewed & are unremarkable except as noted in HPI and below Card Denies chest pain at rest, Denies chest pain with activity, Denies edema, Denies irregular heart rhythm, Denies claudication, Denies dyspnea, Denies dyspnea on exertion, Denies orthopnea, Denies paroxysmal nocturnal dyspnea and Denies slow heart rate Resp Denies cough, Denies dyspnea and Denies dyspnea on exertion GI Denies abdominal pain, Denies change in bowel habits, Denies excessive flatus, Denies nausea and Denies vomiting Denies urinary incontinence, Denies urinary hesitancy and Denies urinary urgency Musc Denies abnormal gait, Denies atrophy, Denies deformity, Reports arthralgias and Denies limited range of motion Skin/Breast Denies bleeding lesions, Denies changing lesions and Denies rash Neuro Denies abnormal gait, Denies confusion and Denies lack of coordination Psych Denies confusion Physical Exam Vital Signs: Last Vital Signs BP 170/70 H 11/28/23 13:07 BMI result Body Mass Index 34.2 Const General: No confusion Orientation/consciousness: patient oriented x3 and No confusion Resp Effort & Inspection: normal respiratory effort Auscultation: clear to auscultation bilaterally Cardio Jugular venous distension: no JVD Rate: regular rate Rhythm: regular rhythm Heart sounds: S1 normal heart sound present and S2 normal heart sound present Neuro General: patient oriented x3, no focal motor deficits and No confusion Extrem General: Yes full ROM Right lower extremity: knee Details: tenderness and crepitus Assessment & Plan Assessment & Plan (1) Encounter for Medicare annual wellness exam: Code(s): Z00.00 - Encounter for general adult medical examination without abnormal findings Plan: Repeat in a year. (2) Hordeolum of right eye: Code(s): H00.013 - Hordeolum externum right eye, unspecified eyelid Qualifiers: Hordeolum type: externum Eyelid: upper Qualified Code(s): H00.011 - Hordeolum externum right upper eyelid Plan: Advised to do warm compresses. Start erythromycin ointment. (3) Chronic venous insufficiency of lower extremity: Code(s): I87.2 - Venous insufficiency (chronic) (peripheral) Plan: Referred to vascular surgery. (4) Right knee pain: Code(s): M25.561 - Pain in right knee Qualifiers: Chronicity: chronic Qualified Code(s): M25.561 - Pain in right knee; G89.29 - Other chronic pain Plan: Referred to Ortho. Orders: Orders XR DEXA axial skeleton Today N95.9 - Unspecified menopausal and perimenopausal disorder Lipid Panel Today E78.5 - Hyperlipidemia, unspecified Comprehensive [place]. Panel Fast Today E78.00 - Pure hypercholesterolemia, unspecified Referrals Orthopedics Referral M25.561 - Pain in right knee Vascular Surgery Referral I87.2 - Venous insufficiency (chronic) (peripheral) Medications: New erythromycin 1 appl ophthalmic-Right DAILY 7 days 3.5 grams 0RF H00.013 - Hordeolum externum right eye, unspecified eyelid Refilled losartan 25 mg PO DAILY 90 days 90 tabs 1RF I10 - Essential (primary) hypertension atorvastatin 20 mg PO BEDTIME 90 days 90 tabs 1RF E78.00 - Pure hypercholesterolemia, unspecified diclofenac sodium 1% (Voltaren Arthritis Pain) apply to single knee 2 grams topical QID 100 grams 0RF Quality Reporting (2019) Fall Risk Screening ([facility] 139) Fall risk assessment: No Falls in past year Depression/Bipolar (159/160/161/177) PHQ-9: Total score: 0 Coding Level of Care Code Medicare First (G0438) Est Pt Level 3 (50406) Diagnoses Encounter for Medicare annual wellness exam Z00.00 Hordeolum externum of right upper eyelid H00.011 Hordeolum type: externum Eyelid: upper Chronic venous insufficiency of lower extremity I87.2 Chronic pain of right knee M25.561; G89.29 Chronicity: chronic CPT Codes Advance Care Planning - Time spent: 1-15 minutes, on File ([id number]) Additional Codes EUNICE-7 Assessment Billing - EUNICE-7 Assessment Tool: EUNICE-7 Assessment 03570 ([id number]) Time Spent (min) 40 Advance Care Planning Advance Care Planning discussion: Exists, not on file Date of discussion: 11/28/23 Who was present: patient, patient's son and me Forms completed: Health Care Proxy Time spent: 1-15 minutes, on File Actual minutes spent: 2
[2023-11-28 13:07] VITALS: BP 170/70; BMI 34.2
== END 2023-11-28 13:53 | disposition home or self-care (01) ==
PROVIDERS: PCP Internal Medicine; Visit Provider Internal Medicine
DX: Z00.00 Encounter for general adult medical examination without abnormal findings (principal); H00.011 Hordeolum externum right upper eyelid; I87.2 Venous insufficiency (chronic) (peripheral); M25.561 Pain in right knee; G89.29 Other chronic pain
CPT/HCPCS: 1123F; 99213; G0438; G0439

== ENCOUNTER 2023-12-08 07:59 | Outpatient (REF) | payer MEDICARE, SELFPAY ==
--- NOTE | ~2023-12-08 | MM_ITS ---
EXAMINATION: MM SCREENING DIGITAL BREAST TOMOSYNTHESIS, BILATERAL CLINICAL INFORMATION: Screening. Asymptomatic. COMPARISON: Mammography: This study is compared with prior exams dating back to 2021. TECHNIQUE: Digital breast tomosynthesis is performed in both the craniocaudal and mediolateral oblique views along with computer-aided detection (CAD). Synthesized 2D images are generated from the tomosynthesis. FINDINGS: The breasts are almost entirely fatty (ACR BI-RADS breast composition Category a). There are no significant masses, abnormal calcifications, or other abnormalities. MM/MM tomosynthesis screening BI IMPRESSION: No mammographic evidence of malignancy. ASSESSMENT: BI-RADS BI-RADS 1 - Negative RECOMMENDATION: Routine annual mammography screening. 1 year F/U This examination should not preclude the clinical evaluation of a suspicious palpable abnormality. This patient's information was entered into a reminder system with a target due date for their next mammogram. Electronically signed by: Jesica Bourgeois MD 01/06/2024 03:20 PM EDT
== END 2023-12-08 08:00 | disposition home or self-care (01) ==
LOC: HO.MAMMO 07:59
PROVIDERS: PCP Internal Medicine; Visit Provider Internal Medicine
DX: Z12.31 Encounter for screening mammogram for malignant neoplasm of breast (principal)
CPT/HCPCS: 77063; 77067

== ENCOUNTER → 2023-12-08 08:30 | Outpatient (BNV) | payer MEDICARE, SELFPAY | PROVIDERS: PCP Internal Medicine; Visit Provider Radiology Diagnostic Radiology | DX: Z12.31 Encounter for screening mammogram for malignant neoplasm of breast (principal) | CPT/HCPCS: 77063; 77067 ==

== ENCOUNTER 2023-12-21 09:32 | Outpatient (AMB) | payer MEDICARE, SELFPAY ==
--- NOTE | 2023-12-21 09:33 | MHC.OFFVIS ---
Vital Signs 12/21/23 09:34 Height 5 ft 4 in Weight 199 lb BMI 34.2 Intake Visit Reasons: Right knee pain Intake Note: Oliva is a 68 year old female who presents with complaints of progressively worsening right knee pain and giving way. The patient describes her pain as sharp in nature. Most of the pain is along the medial aspect of her knee. Her pain has gotten worse over the last year in spite of continued non operative treatments. She has failed the last 6 weeks of conservative treatment. She has been to physical therapy which aggravated her pain. She has also had cortisone injections in the past. The most recent injection gave her only temporary relief. Most of the pain is along the medial aspect of the patient's knee. She states that her right knee will give out several times per day. The patient has been told that she might need total knee replacement surgery. She presents here for a 2nd opinion. Allergies No Known Allergies Allergy (Verified 12/21/23 09:34) Medication List - Last Reconciled 12/21/23 by Carlos Jordan MD atorvastatin 20 mg PO BEDTIME 90 days blood pressure monitor As directed diclofenac sodium 1% (Voltaren Arthritis Pain) 2 grams topical QID erythromycin 1 appl ophthalmic-Right DAILY 7 days losartan 25 mg PO DAILY 90 days [facility] Medical History High blood pressure Periorbital cellulitis of right eye Surgical History Hx of section History of partial hysterectomy Family History Mother Stroke Father No problems noted. Maternal Aunt Breast cancer Social History (Updated 11/28/23 @ 13:29 by Bette Casillas MD) Housing: House Alcohol intake: current Alcohol intake frequency: does not drink Alcohol type: wine Patient Tobacco Use Status: Former Tobacco user Tobacco use type: Cigarette e-Cigarette/Vaping Use: Never Used Second Hand Smoke Exposure: No service: No Current occupational status: unemployed Cognitive needs: No Hearing needs: No Vision needs: No Female Reproductive History Menstrual Age of Menarche: 17 Physical Exam Vital Signs: BMI result Body Mass Index 34.2 Const Other: Well-nourished well-developed very friendly female awake alert and oriented x3 in no acute distress Extrem Other: Bilateral lower extremity examination shows good capillary refill, no skin lesions noted, normal sensation light touch Right knee examination shows a minimal effusion, mild crepitus with range of motion, tenderness along her medial joint line, positive Susana's test, no instability Results Reviewed Results Reviewed: X-rays of the patient's right knee taken previously show joint space narrowing, subchondral sclerosis, no acute bony abnormalities Assessment & Plan Assessment & Plan (1) Right knee pain: Code(s): M25.561 - Pain in right knee Category: Medical Qualifiers: Chronicity: chronic Qualified Code(s): M25.561 - Pain in right knee; G89.29 - Other chronic pain Plan Ms. Rubin presents with progressively worsening right knee pain and mechanical symptoms due to degenerative joint disease as well as possible tearing of her medial meniscus. Thus, I will send the patient for an MRI of her right knee for further evaluation. I will see her back once the MRI is completed to discuss the findings and treatment options. Feel free to call me at any time should questions regarding her orthopedic management arise. Thank you very much for asking me to see this very friendly patient. I spent 21 minutes in reviewing the patient's records and imaging studies, seeing the patient and documenting in the medical record. Orders: Orders MR knee RT wo con Today S83.241A - Other tear of medial meniscus, current injury, right knee, initial encounter Coding Level of Care Code New Pt Level 3 (81771) Diagnoses Chronic pain of right knee M25.561; G89.29 Chronicity: chronic
[2023-12-21 09:34] VITALS: BMI 34.2
== END 2023-12-21 09:57 | disposition home or self-care (01) ==
PROVIDERS: PCP Internal Medicine; Visit Provider Orthopaedic Surgery
DX: M25.561 Pain in right knee (principal); G89.29 Other chronic pain
CPT/HCPCS: 99203

== ENCOUNTER → 2023-12-21 09:32 | Outpatient (BNVA) | payer MEDICARE, SELFPAY | PROVIDERS: PCP Internal Medicine; Visit Provider Orthopaedic Surgery | DX: M25.561 Pain in right knee (principal); G89.29 Other chronic pain | CPT/HCPCS: 99202 ==

== ENCOUNTER 2024-01-04 10:47 | Outpatient (REF) | payer MEDICARE, SELFPAY ==
--- NOTE | ~2024-01-04 | MM_ITS ---
EXAMINATION: BONE DENSITOMETRY CLINICAL INDICATION: Unspecified menopausal and perimenopausal disorder. COMPARISON: This is the patient's baseline examination. TECHNIQUE: Using a fitkit DXA System (software version: 13.1) manufactured by [employer], dual-energy x-ray absorptiometry was performed of the lumbar spine and left hip. The images are of good technical quality. Summary results are attached. FINDINGS: LEFT FEMUR, NECK: BMD 0.911 g/cm2, Z-score 0.2, T-score -0.9, normal. LEFT FEMUR, TOTAL: BMD 1.010 g/cm2, Z-score 0.8, T-score 0.0, normal. AP SPINE L1-L4: BMD 1.318 g/cm2, Z-score 2.1, T-score 1.2, normal. IDENTIFIED RISK FACTORS: Menopause, low calcium intake, hysterectomy. HISTORY OF FRACTURE: None listed. MEDICATIONS: None listed. MM/XR DEXA axial skeleton IMPRESSION: 1. DIAGNOSIS: Normal bone density based on the lowest T-score value of -0.9 in the femoral neck applying World Health Organization criteria. 2. 10-YEAR FRACTURE RISK PREDICTION, FRAX: According to the guidelines, FRAX calculation should only be performed on patients in the osteopenia bone density category. Therefore, FRAX was not performed on this patient. 3. Treatment Recommendations: NOF guidelines recommend consideration for treatment in postmenopausal women and men age 50 and older presenting with the following: -A hip or vertebral (clinical or morphometric) fracture. -T-score less than or equal to -2.5 at the femoral neck or spine after appropriate evaluation to exclude secondary causes. -Low bone mass at the hip or spine and a 10-year fracture probability by FRAX of greater than or equal to 3% for hip fracture or greater than or equal to 20% for major osteoporotic fracture based on the [place] adapted WHO algorithm. 4. Other Recommendations: All treatment decisions require clinical judgment and consideration of individual patient factors, including patient preferences, comorbidities, previous drug use, risk factors not captured in the FRAX model (e.g. frailty, falls, vitamin D deficiency, increased bone turnover, interval significant decline in bone density) and possible under or overestimation of fracture risk by FRAX. FUTURE SCAN RECOMMENDATION: People with diagnosed cases of osteoporosis or at high risk for fracture should have regular bone mineral density tests. For patients eligible for Medicare, routine testing is allowed once every 2 years. The testing frequency can be increased to one year for patients who have rapidly progressing disease, those who are receiving or discontinuing medical therapy to restore bone mass, or have additional risk factors. Electronically signed by: Adrian Gerber MD 01/09/2024 11:14 AM EDT
== END 2024-01-04 10:48 | disposition home or self-care (01) ==
LOC: HO.MAMMO 10:47
PROVIDERS: PCP Internal Medicine; Visit Provider Internal Medicine
DX: Z13.820 Encounter for screening for osteoporosis (principal); Z78.0 Asymptomatic menopausal state
CPT/HCPCS: 77080

== ENCOUNTER 2024-01-14 19:29 | Outpatient (REF) | payer MEDICARE, SELFPAY ==
--- NOTE | ~2024-01-14 | MR_ITS ---
EXAMINATION: MR KNEE WITHOUT CONTRAST, RIGHT CLINICAL INFORMATION: Tear of medial meniscus. COMPARISON: X-ray of the right knee October 2023. TECHNIQUE: MRI of the knee without contrast was performed using routine sequences on a high-field scanner. FINDINGS: MENISCI: Medial Meniscus: There is oblique increased signal extending from the free edge to the periphery of the posterior horn. There is also marked irregularity and attenuation of the body of the meniscus with a partially detached meniscal fragment extending into the meniscofemoral recess. The fragment measures 8 mm AP, 4 mm transverse, and 3 mm craniocaudal. Anterior horn intact. Findings indicative of a complex tear of the medial meniscus with a partially detached meniscal fragment noted (flap tear component). Lateral Meniscus: Intact. LIGAMENTS: Cruciate: Intact 1.5 cm cruciate cyst versus prominent synovial recess juxtaposed between the anterior and posterior cruciate ligament. Favor cyst. Ligaments intact. Collateral: Intact. EXTENSOR MECHANISM: Intact. ARTICULAR CARTILAGE/BONE: Patellofemoral Compartment: There is nonuniform cartilage loss in the medial facet of the patella. There is scattered cartilage heterogeneity and areas of at least partial-thickness cartilage loss in the medial trochlea. Findings indicative of mild patellofemoral arthrosis. Medial Compartment: There are prominent marginal osteophytes. There is nonuniform but primarily high-grade cartilage loss throughout a broad area of the medial weightbearing portion of the compartment involving both the femoral and tibial articular surfaces. There is associated subchondral cystic change along with some reactive edema. Findings indicative of [id number] osteoarthritis. Lateral Compartment: Tiny marginal osteophytes. Cartilage grossly intact. Overall minimal arthrosis. JOINT FLUID AND BURSAE: There is a moderate joint effusion and mild synovitis. There is a moderate-sized slightly complex Meyer's cyst. There are multiple fragments compatible with loose bodies within the Meyer's cyst, the largest measuring 1 cm. These fragments could reflect displaced meniscal fragments or osseous/osteochondral loose bodies. Additional small 3 mm loose body in the posterior recess adjacent to the posterior cruciate ligament. MR/MR knee RT wo con IMPRESSION: 1. Complex tear of the medial meniscus with a partially detached meniscal fragment extending into the meniscofemoral recess. 2. Tricompartmental osteoarthritis with degenerative changes most prominent in the medial compartment being [id number]. 3. Joint effusion and Meyer's cyst with loose bodies. 4. Possible cruciate cyst versus synovial recess juxtaposed between the cruciate ligaments posteriorly. Favor cruciate cyst. Electronically signed by: Floyd Blake MD 01/16/2024 09:05 AM EDT RP
== END 2024-01-14 19:30 | disposition home or self-care (01) ==
LOC: HO.MRI 19:29
PROVIDERS: PCP Internal Medicine; Visit Provider Orthopaedic Surgery
DX: S83.241A Other tear of medial meniscus, current injury, right knee, initial encounter (principal)
CPT/HCPCS: 73721

== ENCOUNTER 2024-01-31 07:32 | Outpatient (AMB) | payer MEDICARE, SELFPAY ==
--- NOTE | 2024-01-31 07:37 | A.OFFVIS_ITS ---
Intake Visit Reasons: MRI Review right knee Intake Note: Oliva is a 68 year old female who presents with complaints of progressively worsening right knee pain. She describes her pain as sharp and severe in nature, 01/31. Her pain has gotten worse over the last few years in spite of continued non operative treatments. She denies any locking or giving way. She has difficulty walking even short distances because of her pain. At this point her right knee pain is interfering with her activities of daily living and her ability to sleep well through the night. She has tried Tylenol, anti- inflammatory medicines and diclofenac topical gel which gave her minimal relief. She has also done physical therapy exercises which aggravated her pain. Allergies No Known Allergies Allergy (Verified 01/31/24 07:39) Medication List - Last Reconciled 01/31/24 by Carlos Jordan MD atorvastatin 20 mg PO BEDTIME 90 days blood pressure monitor As directed diclofenac sodium 1% (Voltaren Arthritis Pain) 2 grams topical QID diclofenac sodium 2% 1 packet topical BID 30 days erythromycin 1 appl ophthalmic-Right DAILY 7 days losartan 25 mg PO DAILY 90 days REPLACED BY [facility] Medical History High blood pressure Periorbital cellulitis of right eye Surgical History Hx of section History of partial hysterectomy Family History Mother Stroke Father No problems noted. Maternal Aunt Breast cancer Social History Housing: House Alcohol intake: current Alcohol intake frequency: does not drink Alcohol type: wine Patient Tobacco Use Status: Former Tobacco user Tobacco use type: Cigarette e-Cigarette/Vaping Use: Never Used Second Hand Smoke Exposure: No service: No Current occupational status: unemployed Cognitive needs: No Hearing needs: No Vision needs: No Female Reproductive History Menstrual Age of Menarche: 17 Physical Exam Const Other: Well-nourished well-developed very friendly female awake alert and oriented x3 in no acute distress Extrem Other: Bilateral lower extremity examination shows good capillary refill, no skin lesions noted, normal sensation light touch Right knee examination shows a minimal effusion, palpable crepitus with range of motion, pain with range of motion, positive Susana's test, range of motion from -3 degrees to 115 degrees, no instability Results Reviewed Results Reviewed: Standing full weight-bearing x-rays of the patient's right knee show severe joint space narrowing in the medial compartment, subchondral sclerosis, osteophyte formation, no acute bony abnormalities MRI of the patient's right knee show severe cartilage loss within the medial compartment consistent with end-stage degenerative joint disease, a medial meniscus tear, no acute bony abnormalities Assessment & Plan Assessment & Plan (1) Arthritis of right knee: Code(s): M17.11 - Unilateral primary osteoarthritis, right knee Category: Medical Plan Ms. Rubin presents with progressively worsening right knee pain due to end- stage degenerative joint disease. I had a lengthy discussion with the patient regarding the treatment options. At this point she has failed continued non operative treatments. Although the patient does have a medial meniscus tear on her MRI I do not feel that she would get lasting relief from an arthroscopic procedure because of the end-stage degenerative changes within her medial compartment. Thus, the risks and benefits of right total knee replacement surgery were discussed at length with the patient. The patient is interested in proceeding with surgery. I will have my office contact the patient to pick a surgery date. I will see her back 1 week prior to the surgery to answer any final questions that she might have. Feel free to call me at any time should questions regarding her orthopedic management arise. I spent 21 minutes in reviewing the patient's records and imaging studies, seeing the patient and documenting in the medical record. Coding Level of Care Code Est Pt Level 3 (17317) Complex EM visit Add On G2211 Diagnoses Arthritis of right knee M17.11
== END 2024-01-31 07:56 | disposition home or self-care (01) ==
PROVIDERS: PCP Internal Medicine; Visit Provider Orthopaedic Surgery
DX: M17.11 Unilateral primary osteoarthritis, right knee (principal); S83.241A Other tear of medial meniscus, current injury, right knee, initial encounter
CPT/HCPCS: 99214; G2211

== ENCOUNTER → 2024-01-31 07:32 | Outpatient (BNVA) | payer MEDICARE, SELFPAY | PROVIDERS: PCP Internal Medicine; Visit Provider Orthopaedic Surgery | DX: M17.11 Unilateral primary osteoarthritis, right knee (principal) | CPT/HCPCS: 99212 ==

== ENCOUNTER 2024-02-13 09:02 | Outpatient (AMB) | payer MEDICARE, SELFPAY ==
[2024-02-13 09:05] VITALS: BMI 34.2
--- NOTE | 2024-02-13 09:05 | MHC.OFFVIS ---
Vital Signs 02/13/24 09:05 Height 5 ft 4 in Weight 199 lb BMI 34.2 Intake Visit Reasons: [employer] HISTORY/PCP referral for VV Intake Note: [employer] H[employer] Right LE VV w/ swelling, Pt states she was having some pain issues with her right knee and pretibial area, went to PT and leg is still painful and swelling. Pt states she is getting cramping during the night. Pt states difficulty walking. Accompanied by: Spouse Allergies No Known Allergies Allergy (Verified 02/13/24 09:11) HPI HPI [employer] HISTORY/PCP referral for VV: Details: Very pleasant 68-year-old female presents for evaluation regarding right lower extremity swelling with her . She has had right knee pain and has had physical therapy along with local steroid injections with no significant improvement. She now presents for evaluation regarding swelling of her lower extremities. She reports that there is some pain and discomfort in particular the right lower extremity. She is unable to discern whether this is directly related to the swelling or more related to her knee pain. Patient denies any previous venous surgery or injections. Patient denies any history of DVT/ PE. Patient denies any history of phlebitis. Trial of compression includes - [id number] They now present for vascular evaluation regarding their varicose veins. [facility] Medical History High blood pressure Periorbital cellulitis of right eye Surgical History Hx of section History of partial hysterectomy Family History Mother Stroke Father No problems noted. Maternal Aunt Breast cancer Social History Housing: House Alcohol intake: current Alcohol intake frequency: does not drink Alcohol type: wine Patient Tobacco Use Status: Former Tobacco user Tobacco use type: Cigarette e-Cigarette/Vaping Use: Never Used Second Hand Smoke Exposure: No service: No Current occupational status: unemployed Cognitive needs: No Hearing needs: No Vision needs: No Female Reproductive History Menstrual Age of Menarche: 17 Review of Systems Const All systems reviewed & are unremarkable except as noted in HPI and below Reports no additional complaints ENT Reports Normal hearing present Card Denies chest pain, Denies chest pain at rest, Denies chest pain with activity and Denies pedal edema Resp Denies cough GI Denies abdominal pain Musc Denies abnormal gait, Denies muscle cramps and Denies radiating pain into limb Skin/Breast Denies skin ulcer and Denies wounds Neuro Reports Normal hearing present and Denies abnormal gait Psych Reports no additional complaints Physical Exam Vital Signs: BMI result Body Mass Index 34.2 Const General: cooperative, healthy appearing and comfortable Orientation/consciousness: oriented to person, oriented to place and oriented to time HEENT Head: Yes normal to inspection Neck Neck: Yes normal visual inspection Carotids: no bruits Chest Chest palpation & inspection: normal inspection of the chest Resp Effort & Inspection: normal respiratory effort and able to speak in complete sentences Auscultation: clear to auscultation bilaterally, no crackles, no rales, no rhonchi and no wheezes Cardio Rate: regular rate Rhythm: regular rhythm Heart sounds: S1 normal heart sound present and S2 normal heart sound present Bruits: no carotid bruits Peripheral pulses: Peripheral pulses 2+ throughout GI Inspection: Yes normal to inspection Skin Wounds: no wounds Hair: normal Neuro General: oriented to person, oriented to place and oriented to time Cranial nerves: Yes CN's II-XII intact bilaterally and Yes Normal hearing present Cognition (Neuro): normal cognition Motor exam (neuro): 5/5 motor strength present throughout Extrem Other: venous exam: +2 edema right greater than left General: No clubbing, No cyanosis and Yes edema Psych Appearance: grossly normal Mental Status: mental status grossly normal Speech and movement: Normal speech and movement present Assessment & Plan Assessment & Plan (1) Varicose veins of right lower extremity with inflammation: Code(s): I83.11 - Varicose veins of right lower extremity with inflammation Category: Medical Plan: In short patient has right lower extremity swelling. This may be multifactorial in nature and may be even related to her knee. She does have some evidence of varicosities. At the current time I would like to manage her venous disease conservatively. She is scheduled for right total knee replacement by Dr. العلي from Orthopedics. She is stable from a vascular standpoint to undergo surgery. I would like to see her once she has recovered from that to better evaluate her venous disease after her postop issues have settled down. I have scheduled her for venous insufficiency testing in approximately 6 months time. Thank you for allowing us to assist in her care. If there are any questions or concerns please do not hesitate to contact us. Orders: Orders US venous duplex LE BI 6 Months I83.11 - Varicose veins of right lower extremity with inflammation Coding Level of Care Code New Pt Level 4 (87925) Diagnoses Varicose veins of right lower extremity with inflammation I83.11
== END 2024-02-13 09:43 | disposition home or self-care (01) ==
PROVIDERS: PCP Internal Medicine; Visit Provider Surgery Vascular Surgery
DX: I83.11 Varicose veins of right lower extremity with inflammation (principal)
CPT/HCPCS: 99204

== ENCOUNTER → 2024-02-13 09:02 | Outpatient (BNVA) | payer MEDICARE, SELFPAY | PROVIDERS: PCP Internal Medicine; Visit Provider Surgery Vascular Surgery | DX: I83.11 Varicose veins of right lower extremity with inflammation (principal) | CPT/HCPCS: 99202 ==

== ENCOUNTER 2024-03-28 09:01 | Outpatient (AMB) | payer MEDICARE, SELFPAY ==
--- NOTE | 2024-03-28 09:18 | A.OFFPC_ITS ---
Vital Signs 03/28/24 09:19 03/28/24 09:58 Height 5 ft 4 in Weight 194 lb BMI 33.3 BP 160/72 H 160/80 H Blood Pressure Location Lt brachial Lt brachial Position Sitting Sitting Pulse 67 Pulse Source Pulse Oximeter Pulse Oximetry (%) 94 Oxygen Delivery Method Room Air Intake Visit Reasons: Anna Marie cervantes/Dr. 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 Assistant Required: No Accompanied by: Son Allergies No Known Allergies Allergy (Verified 03/28/24 09:35) Medication List - Last Reconciled 03/28/24 by Bette Casillas MD atorvastatin 20 mg PO BEDTIME 90 days blood pressure monitor As directed diclofenac sodium 1% (Voltaren Arthritis Pain) 2 grams topical QID diclofenac sodium 2% 1 packet topical BID 30 days erythromycin 1 appl ophthalmic-Right DAILY 7 days losartan 25 mg PO DAILY 90 days walker Folding front wheeled walker Tobacco use date assessed: 03/28/24 Fall risk assessment: No Falls in past year Last assessed Fall Risk: 03/28/24 Dental Screening Dental Screen Date: 03/28/24 Did you have a dental visit in the last 12 months?: Yes Did you have a dental problem in the last 6 months where you did not have access to dental care?: No Was dental information given to patient?: Patient has dentist HPI HPI Comments History of Present Illness Details The patient is a 68-year-old female presenting with the need for a pre- operative evaluation for scheduled right knee replacement surgery. She has a known history of osteoarthritis in the knee, which has significantly reduced her ability to engage in routine activities, such as climbing stairs, due to pain and limited mobility. She reports that her knee arthritis and associated discomfort are the result of prolonged inactivity and are the primary reason for considering knee replacement at this time. The patient has been managing essential hypertension and hyperlipidemia. Her essential hypertension has been known to elevate under periods of stress; however, she reports compliance with her antihypertensive medication, Losartan, which was taken the morning of the appointment. Losartan will be increased to 50 mg once a day and blood pressure will be recheck in 3 weeks by nurse navigator. She is accompanied today by her son. 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 She has received appropriate follow-up for her cancer history with her OB-COMPUTER SYSTEMS INFORMATION DIRECTOR. There is no reported history of allergy to medications. She reports a family history of her mother having a stroke, while her father's medical conditions are unknown to her. The patient's previous smoking history ceased approximately 40 years ago, and she only drinks wine on rare special occasions. Screening and preparatory diagnostics such as blood work and electrocardiogram (EKG) have been advised in preparation for her impending surgery, scheduled for May 13. [facility] Medical History (Updated 03/28/24 @ 09:57 by Bette Casillas MD) High blood pressure Periorbital cellulitis of right eye Surgical History Hx of section History of partial hysterectomy Family History Mother Stroke Father No problems noted. Maternal Aunt Breast cancer Social History (Updated 03/28/24 @ 09:42 by Bette Casillas MD) Housing: House Alcohol intake: current Alcohol intake frequency: holidays/special occasions only Alcohol type: wine Patient Tobacco Use Status: Former Tobacco user Tobacco use type: Cigarette e-Cigarette/Vaping Use: Never Used Second Hand Smoke Exposure: No service: No Current occupational status: unemployed Cognitive needs: No Hearing needs: No Vision needs: No Female Reproductive History Menstrual Age of Menarche: 17 Questionnaire Thrive Questionnaire Date Thrive assessed: 11/28/23 EUNICE-7 AMB Questionnaire EUNICE-7 Date EUNICE - 7 assessed: 11/28/23 Source: Developed by Drs. Chaz Mitchell, Tina Tobin, Elias Chen and colleagues, with an educational corinna from [email or web address]. Review of Systems Const All systems reviewed & are unremarkable except as noted in HPI and below Card Denies chest pain at rest, Denies chest pain with activity, Denies edema, Denies irregular heart rhythm, Denies claudication, Denies dyspnea, Denies dyspnea on exertion, Denies orthopnea, Denies paroxysmal nocturnal dyspnea and Denies slow heart rate Resp Denies cough, Denies dyspnea and Denies dyspnea on exertion GI Denies abdominal pain, Denies change in bowel habits, Denies excessive flatus, Denies nausea and Denies vomiting Physical exam (Primary Care) Vital Signs: Last Vital Signs Pulse 67 03/28/24 09:19 BP 160/80 H 03/28/24 09:58 Pulse Ox 94 03/28/24 09:19 Oxygen Delivery Method Room Air 03/28/24 09:19 BMI result Body Mass Index 33.3 BMI Assessment/Plan discussion: High BMI High, discussed plan: lifestyle, weight reduction, dietary and physical activity Tobacco/Smoking Status: Tobacco use Status Tobacco use date assessed 03/28/24 03/28/24 09:24 Patient Tobacco Use Status Former Tobacco user 03/28/24 09:42 Tobacco use type Cigarette 03/28/24 09:42 e-Cigarette/Vaping Use Never Used 03/28/24 09:42 Thrive Assessment: Date of Thrive Assessment Date Thrive assessed 11/28/23 03/28/24 09:18 Resp Effort & Inspection: normal respiratory effort Auscultation: clear to auscultation bilaterally Cardio Jugular venous distension: no JVD Rate: regular rate Rhythm: regular rhythm Heart sounds: S1 normal heart sound present and S2 normal heart sound present Extrem General: Yes full ROM Coding Level of Care Code Est Pt Level 4 (34581) Complex EM visit Add On G2211 Diagnoses Pre-op evaluation Z01.818 Essential hypertension I10 Pure hypercholesterolemia E78.00 Chronic pain of right knee M25.561; G89.29 Chronicity: chronic Obesity (BMI 30.0-34.9) E66.9 Time Spent (min) 21 Assessment & Plan Assessment & Plan (1) Pre-op evaluation: Code(s): Z01.818 - Encounter for other preprocedural examination Category: Medical (2) Essential hypertension: Code(s): I10 - Essential (primary) hypertension Category: Medical (3) Pure hypercholesterolemia: Code(s): E78.00 - Pure hypercholesterolemia, unspecified Category: Medical (4) Right knee pain: Code(s): M25.561 - Pain in right knee Category: Medical Qualifiers: Chronicity: chronic Qualified Code(s): M25.561 - Pain in right knee; G89.29 - Other chronic pain (5) Obesity (BMI 30.0-34.9): Code(s): E66.9 - Obesity, unspecified Category: Medical Plan - Osteoarthritis of the knee: Proceed with pre-operative preparation for right knee replacement. Recommend tests including blood work and EKG to ensure surgical clearance. - Essential Hypertension: Increase Losartan to 50 mg daily to better manage blood pressure, especially considering upcoming surgery. Patient to monitor blood pressure at home three times weekly until the next follow-up in three weeks. - Hyperlipidemia: Continue with current therapy of atorvastatin 20 mg at bedtime. - History of carcinoma in situ of the cervix: Continue routine follow-up with OB-COMPUTER SYSTEMS INFORMATION DIRECTOR. - History of section/partial hysterectomy: No additional management needed at this time. Patient was informed and verbally consented to the use of an ambient scribe for clinic note documentation during this visit. I explained to the patient the importance of pre-operative evaluation to ensure she is fit for the upcoming right knee replacement surgery. We discussed the need to control her blood pressure more tightly to ensure safe surgical outcomes, hence the dose increase in her Losartan. I informed her about the importance of monitoring her blood pressure regularly and managing her stress levels as much as possible. There was a conversation about general anesthesia and the importance of maintaining cardiovascular stability. She was advised to reduce sodium intake further possibly with dietary modifications and to dilute her coffee consumption. The patient is aware of her surgery date and the pre- operative requirements, including blood work and EKG. Consents for the necessary procedures and adjustments to medication were obtained. Orders: Orders Lipid Panel Today E78.5 - Hyperlipidemia, unspecified Complete Blood Count Auto Diff Today M17.11 - Unilateral primary osteoarthritis, right knee Comprehensive [place]. Panel Fast Today I10 - Essential (primary) hypertension ECG 12 lead EKG Today I10 - Essential (primary) hypertension, Z01.818 - Encounter for other preprocedural examination Medications: New losartan 50 mg PO DAILY 90 tabs 1RF 90 days I10 - Essential (primary) hypertension Discontinued losartan Discontinued Reason: Patient Completed Course 25 mg PO DAILY 90 days 90 tabs 1RF I10 - Essential (primary) hypertension Patient Instructions: - Increase Losartan to 50 mg daily; monitor blood pressure at home three times per week - Follow a low-sodium diet and limit coffee concentration - Obtain fasting blood work and EKG as soon as possible - Return for a follow-up appointment in three weeks to reassess blood pressure management - Continue atorvastatin 20 mg at bedtime for cholesterol management - Report any significant changes in health status prior to the scheduled surgery
[2024-03-28 09:19] VITALS: BP 160/72; PULSE 67; O2SAT 94; BMI 33.3
[2024-03-28 09:58] VITALS: BP 160/80
== END 2024-03-28 09:57 | disposition home or self-care (01) ==
PROVIDERS: PCP Internal Medicine; Visit Provider Internal Medicine
DX: I10 Essential (primary) hypertension (principal); Z01.818 Encounter for other preprocedural examination; E66.9 Obesity, unspecified; Z68.33 Body mass index [BMI] 33.0-33.9, adult; E78.00 Pure hypercholesterolemia, unspecified; M25.561 Pain in right knee; G89.29 Other chronic pain

== ENCOUNTER 2024-03-28 09:01 | Outpatient (REF) | payer MEDICARE, SELFPAY ==
[2024-03-28 10:56] LABS: MANUAL DIFF FLAG NO
--- NOTE | 2024-03-28 11:45 | ECG_ITS ---
Test Reason : htn Blood Pressure : / mmHG Vent. Rate : 060 BPM Atrial Rate : 060 BPM P-R Int : 154 ms QRS Dur : 132 ms QT Int : 434 ms P-R-T Axes : 034 -24 004 degrees QTc Int : 434 ms Normal sinus rhythm Right bundle branch block Abnormal ECG No previous ECGs available Referred By: Bette Casillas Electronically Signed By:Fuentes Quintanilla
[2024-03-28 12:09] LABS: Basophils Percent Auto 0.7 % (0-2); Eosinophils Absolute Auto 0.3 X10*3/uL (0.0-0.4); Eosinophils Percent Auto 5.5 % (0-4); Hematocrit 44.4 % (37.0-47.0); Hemoglobin 13.9 g/dl (12.0-16.0); Imm Gran Abs Auto 0.02 X10*3/uL (0.00-0.03); Imm Gran Pct Auto 0.4 % (0.0-0.4); Lymphocytes Absolute Auto 1.2 X10*3/uL (1.2-4.9); Lymphocytes Percent Auto 22.3 % (20-40); Mean Corpuscular HGB Conc 31.3 g/dl (31.0-35.0); Mean Corpuscular Volume 89.5 fL (80.0-98.0); Mean Platelet Volume 10.2 fL (9.4-12.3); Monocytes Absolute Auto 0.4 X10*3/uL (0.1-1.2); Monocytes Percent Auto 7.9 % (2-11); Neutrophils Absolute Auto 3.4 x10*3/uL (2.0-8.3); Neutrophils Percent Auto 63.2 % (45-73); Platelet Count 246 X10*3/uL (160-400); Red Blood Count 4.96 X10*6/uL (4.20-5.50); Red Cell Distribution Width 11.9 % (11.0-16.0); White Blood Count 5.4 X10*3/uL (4.8-10.8)
[2024-03-28 12:47] LABS: Alanine Aminotransferase 20 U/L (0-31); Albumin Level 4.2 g/dL (3.5-5.0); Alkaline Phosphatase 53 U/L (39-117); Anion Gap 12 (12-20); Aspartate Amino Transferase 24 U/L (5-31); Bilirubin Total 0.7 mg/dL (0.0-1.0); Blood Urea Nitrogen 10 mg/dL (9-16); Calcium 9.7 mg/dL (8.4-10.2); Carbon Dioxide 28 mmol/L (22-29); Chloride 107 mmol/L (96-108); Cholesterol 166 mg/dL (<200); Estimated Glomerular Filt Rate 58; Glucose Fasting 100 mg/dL (60-99); HDL Cholesterol 62 mg/dL (>40); LDL Cholesterol Calculated 90 mg/dL (<100); Potassium 4.6 mmol/L (3.3-5.1); Sodium 142 mmol/L (135-145); Total Protein 6.7 g/dL (6.5-8.0); Triglycerides 74 mg/dL (<150)
== END 2024-03-28 09:02 | disposition home or self-care (01) ==
LOC: HO.LAB 09:01
PROVIDERS: PCP Internal Medicine; Visit Provider Internal Medicine
DX: Z01.818 Encounter for other preprocedural examination (principal); I10 Essential (primary) hypertension; E78.00 Pure hypercholesterolemia, unspecified; M17.11 Unilateral primary osteoarthritis, right knee; G89.29 Other chronic pain; E66.9 Obesity, unspecified; Z68.33 Body mass index [BMI] 33.0-33.9, adult
CPT/HCPCS: 36415; 80053; 80061; 85025; 93005; 99212

== ENCOUNTER → 2024-03-28 11:45 | Outpatient (BNV) | payer MEDICARE, SELFPAY | PROVIDERS: PCP Internal Medicine; Visit Provider Internal Medicine Cardiovascular Disease | DX: R94.31 Abnormal electrocardiogram [ECG] [EKG] (principal) | CPT/HCPCS: 93010 ==

== ENCOUNTER → 2024-04-12 10:49 | Outpatient (BNVA) | payer MEDICARE, SELFPAY | PROVIDERS: PCP Internal Medicine | DX: Z01.818 Encounter for other preprocedural examination (principal) ==

== ENCOUNTER 2024-04-30 08:11 | Outpatient (AMB) | payer MEDICARE, SELFPAY ==
[2024-04-30 08:13] VITALS: BP 150/72; BMI 33.3
--- NOTE | 2024-04-30 08:13 | A.OFFPC_ITS ---
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: No Accompanied by: Self / Same As Patient Allergies No Known Allergies Allergy (Verified 04/30/24 08:32) Medication List - Last Reconciled 04/30/24 by Bette Casillas MD atorvastatin 20 mg PO BEDTIME 90 days blood pressure monitor As directed losartan 50 mg PO QAM walker Folding front wheeled walker Tobacco use date assessed: 04/30/24 Fall risk assessment: No Falls in past year Last assessed Fall Risk: 04/30/24 Dental Screening Dental Screen Date: 04/30/24 Did you have a dental visit in the last 12 months?: Yes Did you have a dental problem in the last 6 months where you did not have access to dental care?: No Was dental information given to patient?: Patient has dentist HPI HPI Comments History of Present Illness Details The patient is a 68-year-old female presenting with knee pain and swelling. She has a history of medial meniscus tear and osteoarthritis of the right knee. These issues have been accompanied by swelling, particularly after standing for prolonged periods, as she often does when engaging in activities such as jigsaw puzzles. The patient reports that the table's height causes prolonged standing, leading to increased discomfort. She also experiences periodic swelling that she has associated with activity level. A Meyer's cyst has been noted in the past, contributing to the swelling and discomfort. Her symptoms have persisted despite limited walking, and she reports the occurrence of mild knee swelling. Previous bone density tests did not reveal osteoporosis. Interventions have included use of losartan for hypertension and managing cholesterol with atorvastatin. Her blood pressure readings at home have significantly improved since March. She has also consulted with a vascular physician, Dr. Romo, who observed no vascular abnormalities. The patient is preparing for an upcoming knee replacement surgery. She has hypertension which is normal when she takes it at home and elevated here. No chest pain or shortness on breath. [facility] Medical History Uterine cancer Asthma Varicose vein of leg Elevated cholesterol Arthritis HTN (hypertension) Surgical History Hx of hand surgery Hx of section History of partial hysterectomy Family History Mother Stroke Father No problems noted. Maternal Aunt Breast cancer Social History Housing: House Are you a primary home care music therapist to a significant other at home: No Do you presently have visiting nurse or other home services: No Alcohol intake: current Alcohol intake frequency: holidays/special occasions only Alcohol type: wine Comment: aware of trip hazard and will remove Patient Tobacco Use Status: Former Tobacco user Tobacco use type: Cigarette Years Smoked: 5 e-Cigarette/Vaping Use: Never Used Second Hand Smoke Exposure: No service: No Current occupational status: unemployed Cognitive needs: No Hearing needs: No Vision needs: No Female Reproductive History Menstrual Age of Menarche: 17 Questionnaire PHQ-9 Over the last 2 weeks, how often have you been bothered by any of the following problems? 1. Little interest or pleasure in doing things: not at all 2. Feeling down, depressed, or hopeless: several days 3. Trouble falling or staying asleep, or sleeping too much: not at all 4. Feeling tired or having little energy: not at all 5. Poor appetite or overeating: not at all 6. Feeling bad about yourself - or that you are a failure or have let yourself or your family down: not at all 7. Trouble concentrating on things, such as reading the newspaper or watching television: not at all 8. Moving or speaking so slowly that other people could have noticed. Or the opposite - being so fidgety or restless that you have been moving around a lot more than usual: not at all 9. Thoughts that you would be better off or of hurting yourself in some way: not at all Total score: 1 Depression Screening Interpretation: Negative Depression Screening Done: Yes 66227 - PHQ-9 Billing: Yes Source: Developed by Drs. Chaz Mitchell, Tina Tobin, Elias Chen and colleagues, with an educational corinna from [employer]. Thrive Questionnaire Date Thrive assessed: 04/30/24 I am a: Patient What is your living situation today?: I have a steady place to live Within the past 12 months, did the food you bought not last and you didn't have the money to get more?: Never true Within the past 12 months, did you worry whether your food would run out before you got money to buy more?: Never true Do you have trouble paying for medicines?: No Do you have trouble getting transportation to medical appointments?: No Do you have trouble paying your heating and electricity bill?: No Do you have trouble taking care of your child, family member or friend?: No Do you have trouble with day-to-day activities such as bathing, preparing meals, shopping, managing finances, etc.?: No Are you currently unemployed and looking for a job?: No Are you interested in more education?: No Please select the resources that you would like help with: None Currently or been in a relationship where the following occur: No concerns reported THRIVE Score: 0 AUDIT C Alcohol Use Questionnaire (AUDIT-C) 1. How often do you have a drink containing alcohol?: Never Total Score: 0 Score Reviewed/Action Taken: No EUNICE-7 AMB Questionnaire EUNICE-7 Date EUNICE - 7 assessed: 04/30/24 Feeling nervous, anxious, or on edge: 0 = Not at all Not being able to stop or control worryin = Not at all Worrying too much about different things: 0 = Not at all Trouble relaxin = Not at all Being so restless that it is hard to sit still: 0 = Not at all Becoming easily annoyed or irritable: 0 = Not at all Feeling afraid as if something awful might happen: 0 = Not at all Total EUNICE-7 score (0-4 normal; 5-9 mild; 10-14 moderate; 15-21 severe): 0 Source: Developed by Drs. Chaz Mitchell, Tina Tobin, Elias Chen and colleagues, with an educational corinna from [employer]. EUNICE-7 Assessment Billing EUNICE-7 Assessment Tool: EUNICE-7 Assessment 73518 Review of Systems Const All systems reviewed & are unremarkable except as noted in HPI and below Card Denies chest pain at rest, Denies chest pain with activity, Denies edema, Denies irregular heart rhythm, Denies claudication, Denies dyspnea, Denies dyspnea on exertion, Denies orthopnea, Denies paroxysmal nocturnal dyspnea and Denies slow heart rate Resp Denies cough, Denies dyspnea and Denies dyspnea on exertion Musc Denies atrophy, Denies deformity and Denies limited range of motion Physical exam (Primary Care) Vital Signs: Last Vital Signs BP 135/69 04/30/24 08:38 BMI result Body Mass Index 33.3 BMI Assessment/Plan discussion: High BMI High, discussed plan: lifestyle, weight reduction, dietary and physical activity Tobacco/Smoking Status: Tobacco use Status Tobacco use date assessed 04/30/24 04/30/24 08:18 Patient Tobacco Use Status Former Tobacco user 04/30/24 08:18 Tobacco use type Cigarette 04/30/24 08:18 e-Cigarette/Vaping Use Never Used 04/30/24 08:18 PHQ-9: PHQ-9 Score PHQ-9: Total score 1 04/30/24 09:45 Depression Screening Interpretation: Negative Thrive Assessment: Date of Thrive Assessment Date Thrive assessed 04/30/24 04/30/24 08:18 Currently or been in a relationship where the following occur: No concerns reported Resp Effort & Inspection: normal respiratory effort Auscultation: clear to auscultation bilaterally Cardio Jugular venous distension: no JVD Rate: regular rate Rhythm: regular rhythm Heart sounds: S1 normal heart sound present and S2 normal heart sound present Extrem General: Yes full ROM Coding Level of Care Code Est Pt Level 3 (88533) Complex EM visit Add On G2211 Diagnoses Essential hypertension I10 Pure hypercholesterolemia E78.00 Chronic pain of right knee M25.561; G89.29 Chronicity: chronic Additional Codes EUNICE-7 Assessment Billing - EUNICE-7 Assessment Tool: EUNICE-7 Assessment 93374 ([id number]) PHQ-9 - 48325 - PHQ-9 Billing: Yes ([id number]) Time Spent (min) 19 Assessment & Plan Assessment & Plan (1) Essential hypertension: Code(s): I10 - Essential (primary) hypertension Category: Medical (2) Pure hypercholesterolemia: Code(s): E78.00 - Pure hypercholesterolemia, unspecified Category: Medical (3) Right knee pain: Code(s): M25.561 - Pain in right knee Category: Medical Qualifiers: Chronicity: chronic Qualified Code(s): M25.561 - Pain in right knee; G89.29 - Other chronic pain Plan - Monitor blood pressure closely given the history of essential hypertension. Continue current prescription of losartan and atorvastatin. - Plan for right knee replacement surgery; advice to follow post-operative care instructions carefully to ensure optimal rehabilitation and prevent motion limitation. - Recommend leg elevation periodically to manage swelling in the knee. - Discussed importance of limiting activities that exacerbate knee pain, such as prolonged standing. Patient was informed and verbally consented to the use of an ambient scribe for clinic note documentation during this visit. During this visit, I discussed with the patient the management of her knee pain and upcoming knee replacement. We reviewed the lack of osteoporosis and the need for continued caution with her current activities until surgery. I emphasized the importance of managing her hypertension effectively, which she is currently doing with medication, and advised monitoring her blood pressure at home. We also covered the post-operative expectations and instructions for her knee surgery, including keeping movement limited initially but ensuring eventual mobilization. I advised her to elevate her leg intermittently to reduce swelling. A follow-up appointment has been scheduled for July, where we will further assess her condition and make any necessary adjustments to her treatment plan. Patient Instructions: - Maintain regular blood pressure monitoring at home and report any significant changes. - Continue taking losartan and atorvastatin as prescribed. - Elevate your right leg periodically, especially after periods of standing or activity. - Prepare for your upcoming knee replacement surgery and follow post-operative care instructions closely. - Limit activities that cause knee discomfort, such as prolonged standing. - Attend the scheduled follow-up appointment in July.
[2024-04-30 08:38] VITALS: BP 135/69
== END 2024-04-30 08:44 | disposition home or self-care (01) ==
PROVIDERS: PCP Internal Medicine; Visit Provider Internal Medicine
DX: I10 Essential (primary) hypertension (principal); E78.00 Pure hypercholesterolemia, unspecified; M25.561 Pain in right knee; G89.29 Other chronic pain

== ENCOUNTER → 2024-04-30 08:11 | Outpatient (BNVA) | payer MEDICARE, SELFPAY | PROVIDERS: PCP Internal Medicine; Visit Provider Internal Medicine | DX: M17.11 Unilateral primary osteoarthritis, right knee (principal); I10 Essential (primary) hypertension; E78.00 Pure hypercholesterolemia, unspecified; M25.561 Pain in right knee; G89.29 Other chronic pain | CPT/HCPCS: 96127; 99212 ==

== ENCOUNTER 2024-05-09 09:53 | Outpatient (AMB) | payer MEDICARE, SELFPAY ==
--- NOTE | 2024-05-09 09:56 | MHC.OFFVIS ---
Vital Signs 05/09/24 10:00 Height 5 ft 4 in Weight 194 lb BMI 33.3 Intake Visit Reasons: Pre-Op: R TKA w/DR 05/13/24 Intake Note: Oliva is a 68 year old female who presents with complaints of progressively worsening right knee pain. She describes her pain as sharp and severe in nature, 10/10. Her pain has gotten worse over the last few years in spite of continued non operative treatments. She denies any locking or giving way. She has difficulty walking even short distances because of her pain. At this point her right knee pain is interfering with her activities of daily living and her ability to sleep well through the night. She has tried Tylenol, anti-inflammatory medicines and diclofenac topical gel which gave her minimal relief. She has also done physical therapy exercises which aggravated her pain. Allergies No Known Allergies Allergy (Verified 05/09/24 10:00) Medication List - Last Reconciled 05/09/24 by Carlos Jordan MD atorvastatin 20 mg PO BEDTIME 90 days blood pressure monitor As directed losartan 50 mg PO QAM walker Folding front wheeled walker [facility] Medical History Uterine cancer Asthma Varicose vein of leg Elevated cholesterol Arthritis HTN (hypertension) Surgical History Hx of hand surgery Hx of section History of partial hysterectomy Family History Mother Stroke Father No problems noted. Maternal Aunt Breast cancer Social History Housing: House Are you a primary care assistant to a significant other at home: No Do you presently have visiting nurse or other home services: No Alcohol intake: current Alcohol intake frequency: holidays/special occasions only Alcohol type: wine Comment: aware of trip hazard and will remove Patient Tobacco Use Status: Former Tobacco user Tobacco use type: Cigarette Years Smoked: 5 e-Cigarette/Vaping Use: Never Used Second Hand Smoke Exposure: No service: No Current occupational status: unemployed Cognitive needs: No Hearing needs: No Vision needs: No Female Reproductive History Menstrual Age of Menarche: 17 Physical Exam Vital Signs: BMI result Body Mass Index 33.3 Const Other: Well-nourished well-developed very friendly female awake alert and oriented x3 in no acute distress Extrem Other: Bilateral lower extremity examination shows good capillary refill, no skin lesions noted, normal sensation light touch Right knee examination shows a minimal effusion, palpable crepitus with range of motion, pain with range of motion, range of motion from -3 degrees to 115 degrees, no instability Results Reviewed Results Reviewed: X-rays of the patient's right knee taken previously show severe joint space narrowing with grade 4 [id number] arthritis, subchondral sclerosis, osteophyte formation, no acute bony abnormalities MRI of the patient's right knee show end-stage degenerative joint disease Assessment & Plan Assessment & Plan (1) Arthritis of right knee: Code(s): M17.11 - Unilateral primary osteoarthritis, right knee Category: Medical Plan Ms. March presents with progressively worsening right knee pain due to end-stage degenerative joint disease. I had a lengthy discussion with the patient regarding the treatment options. At this point she has failed continued non operative treatments. The risks and benefits of right total knee replacement surgery were discussed at length with the patient. The patient wishes to proceed with surgery. instructional support services director will be consulted following her surgery for home physical therapy and nursing. The patient will follow-up as instructed. Feel free to call me at any time should questions regarding her orthopedic management arise. I spent 20 minutes in reviewing the patient's records and imaging studies, seeing the patient and documenting in the medical record. Coding Level of Care Code Est Pt Level 3 (34860) Complex EM visit Add On G2211 Diagnoses Arthritis of right knee M17.11
[2024-05-09 10:00] VITALS: BMI 33.3
== END 2024-05-09 10:24 | disposition home or self-care (01) ==
PROVIDERS: PCP Internal Medicine; Visit Provider Orthopaedic Surgery
DX: M17.11 Unilateral primary osteoarthritis, right knee (principal)
CPT/HCPCS: 99213; G2211

== ENCOUNTER → 2024-05-09 09:53 | Outpatient (BNVA) | payer MEDICARE, SELFPAY | PROVIDERS: PCP Internal Medicine; Visit Provider Orthopaedic Surgery | DX: M17.11 Unilateral primary osteoarthritis, right knee (principal) | CPT/HCPCS: 99212 ==

== ENCOUNTER 2024-05-09 10:31 | Outpatient (REF) | payer MEDICARE, SELFPAY | END 2024-05-09 10:32 | disposition home or self-care (01) | LOC: HO.LAB 10:31 | PROVIDERS: Visit Provider Physician Assistant | DX: Z13.89 Encounter for screening for other disorder (principal) ==

== ENCOUNTER → 2024-05-13 09:00 | Outpatient (BNV) | payer MEDICARE, SELFPAY | PROVIDERS: Admitting Provider Orthopaedic Surgery; PCP Internal Medicine; Visit Provider Orthopaedic Surgery | DX: Z47.1 Aftercare following joint replacement surgery (principal); Z96.651 Presence of right artificial knee joint | CPT/HCPCS: 27447; 99024; G0180; J2003; J3370 ==

== ENCOUNTER 2024-05-13 12:28 | Day surgery (SDC) | payer MEDICARE, SELFPAY ==
[2024-04-12 09:57] VITALS: BP 159/68; PULSE 64; RESP 20; O2SAT 96; BMI 33.3
--- NOTE | 2024-04-12 10:19 | HO.ANESPROP2 ---
Documented by User: Mckayla Malhotra NP 04/12/24 10:27 HPI - Anesthesia Eval Consult details Narrative: 68yo F for Right Knee Replacement Total, 05/13/23 Medically cleared by PCP - recent increase in BP meds No recent illness No CP/SOB with activity limited by pain Asthma: stable, has never required rescue inhaler PMFSH Active Problems Active Problems: All Active Problems Pre-op evaluation (Acute) Varicose veins of right lower extremity with inflammation (Acute) Arthritis of right knee (Acute) Encounter for Medicare annual wellness exam (Acute) Hordeolum of right eye (Acute) Chronic venous insufficiency of lower extremity (Acute) Meyer's cyst of knee (Acute) Muscle cramp (Acute) Right leg pain (Acute) Knee effusion (Acute) Colonoscopy refused (Acute) Cervical cancer screening (Acute) Right knee pain (Acute) Pure hypercholesterolemia (Acute) Mild persistent asthma (Acute) Obesity (BMI 30.0-34.9) (Acute) Essential hypertension (Acute) Hordeolum eyelid (Acute) Mixed hyperlipidemia (Acute) Obesity (BMI 35.0-39.9 without comorbidity) (Acute) Elevated blood pressure reading without diagnosis of hypertension (Acute) Impaired glucose tolerance (Acute) Transaminitis (Acute) Physical exam (Acute) Past Medical History Medical History Uterine cancer Asthma Varicose vein of leg Elevated cholesterol Arthritis HTN (hypertension) Family History Family History Mother Stroke Father No problems noted. Maternal Aunt Breast cancer Surgical History Surgical History Hx of hand surgery Hx of section History of partial hysterectomy Social History Social History Housing: House Are you a primary insurance healthcare consultant to a significant other at home: No Do you presently have visiting nurse or other home services: No Alcohol intake: current Alcohol intake frequency: holidays/special occasions only Alcohol type: wine Comment: aware of trip hazard and will remove Patient Tobacco Use Status: Former Tobacco user Tobacco use type: Cigarette Years Smoked: 5 e-Cigarette/Vaping Use: Never Used Second Hand Smoke Exposure: No service: No Current occupational status: unemployed Cognitive needs: No Hearing needs: No Vision needs: No Meds Allergies Allergy/AdvReac Type Severity Reaction Status Date / Time No Known Allergies Allergy Verified 05/13/24 07:25 Home Medications ?Medication ?Instructions ?Recorded ?Confirmed ?Last Taken ?Type losartan 50 mg tablet 50 mg PO QAM 04/12/24 05/09/24 05/12/24 History Exam Height,Weight and Vital Signs: Height 5 ft 4 in Weight 87.997 kg Last Vital Signs Pulse 64 04/12/24 09:57 Resp 20 04/12/24 09:57 BP 159/68 H 04/12/24 09:57 Pulse Ox 96 04/12/24 09:57 O2 Del Method Room Air 04/12/24 09:57 Pertinent Lab Results Pertinent Lab Results: Laboratory Tests 03/28/24 10:55 WBC 5.4 Hgb 13.9 Hct 44.4 Plt Count 246 Sodium 142 Potassium 4.6 Chloride 107 Carbon Dioxide 28 BUN 10 Creatinine 0.96 Narrative Narrative: EKG 03/2024 Vent. Rate : 060 BPM Atrial Rate : 060 BPM P-R Int : 154 ms QRS Dur : 132 ms QT Int : 434 ms P-R-T Axes : 034 -24 004 degrees QTc Int : 434 ms Normal sinus rhythm Right bundle branch block Abnormal ECG No previous ECGs available Airway Mallampati Class: II TM Dist: >3cm Neck ROM: Full Partial: Lower Heart: RRR Lungs: CTAB Assessment and Plan Assessment Anesthesia Assessment: Anesthesia Plan Discussed and PAT Visit Documented by User: Jihan Pickering MD 05/13/24 08:13 [facility] Past Medical History Medical History Uterine cancer Asthma Varicose vein of leg Elevated cholesterol Arthritis HTN (hypertension) Family History Family History Mother Stroke Father No problems noted. Maternal Aunt Breast cancer Family history of problems with anesthesia: No Surgical History Surgical History Hx of hand surgery Hx of section History of partial hysterectomy History of Problems with Anesthesia: No Social History Social History Housing: House Are you a primary insurance healthcare consultant to a significant other at home: No Do you presently have visiting nurse or other home services: No Alcohol intake: current Alcohol intake frequency: holidays/special occasions only Alcohol type: wine Comment: aware of trip hazard and will remove Patient Tobacco Use Status: Former Tobacco user Tobacco use type: Cigarette Years Smoked: 5 e-Cigarette/Vaping Use: Never Used Second Hand Smoke Exposure: No service: No Current occupational status: unemployed Cognitive needs: No Hearing needs: No Vision needs: No Meds Allergies Allergy/AdvReac Type Severity Reaction Status Date / Time No Known Allergies Allergy Verified 05/13/24 07:25 Home Medications ?Medication ?Instructions ?Recorded ?Confirmed ?Last Taken ?Type losartan 50 mg tablet 50 mg PO QAM 04/12/24 05/09/24 05/12/24 History Assessment and Plan Final Anesthetic Review Family History of Problems with Anesthesia: No History of Problems with Anesthesia: No NPO: Yes ASA Class: III Final Preanesthetic Review: No Changes in Pt Med Stat, Meds/Allgs Chart Reviewed, Consent Obtained/Reviewed and Anes Risks/Benef Reviewed Patient Risk: Intermediate Procedure Risk: Intermediate Anesthetic Plan Anesthetic Plan: MAC:, Spinal and Regional Block Disposition: Standard PACU
[2024-04-12 12:09] LABS: MRSA Nasal PCR NEGATIVE (Negative); SA Nasal PCR NEGATIVE (Negative)
[2024-05-13] VITALS (12 sets, daily range): BP systolic 104–184; BP diastolic 35–70; PULSE 52–79; RESP 15–18; TEMP 36–36.9; O2SAT 94–100; BMI 36.4; BMI 34.6
[2024-05-13] MEDS: Lactated Ringers 1,000 ML 100 ML IVCONT ×2 (07:41→13:20)
--- NOTE | 2024-05-13 12:14 | P.BOP_ITS ---
Brief Operative Note Date of Service: 05/13/24 Pre-op diagnosis: Right knee degenerative joint disease Post-op diagnosis: same Procedure: Right total knee arthroplasty Implants: [employer] Triathlon cemented posterior stabilized total knee arthroplasty with a femoral component size 3 right, tibial component size 4, polyethylene liner size 4 with 10 mm of thickness, an asymmetric patellar component size 29 with 9 mm of thickness Surgeon: Carlos Jordan MD Anesthesia: regional and spinal Was an Corporate Development Associate used for this Procedure?: No Corporate Development Associate: Erendira Glass Estimated blood loss (mL): 200 Pathology: other (Bony fragments from the right femur, tibia and patella) Condition: stable Disposition: PACU
--- NOTE | 2024-05-13 12:15 | W.PM.OPN ---
Operative Note Operative Note Date of Service: 05/13/24 Narrative: After the patient was identified as Oliva Joy and her right knee was initialed by myself the patient was brought to the holding area where a right leg nerve block was performed by the anesthesiologist in routine fashion. The patient was then brought to the operating room where conscious sedation and spinal anesthesia were performed by the anesthesiologist in routine fashion. The patient was given 2 g of IV Ancef preoperatively for infection prophylaxis. The patient's right lower extremity was prepped and draped in sterile fashion. A formal time-out was completed. The patient's right knee was placed onto a small bump to produce 30? of knee flexion during exposure. A #10 scalpel blade was used to make a midline incision extending 1 handbreadth proximal and distal to the patella. A second #10 scalpel blade was used to dissect the subcutaneous tissues down to the extensor mechanism. The subcutaneous flaps were maintained as thick as possible. A medial parapatellar arthrotomy was then performed using a #10 scalpel blade. The arthrotomy was begun just medial to the patellar tendon. The arthrotomy was continued 1 cm medial to the patella and then 5 mm into the medial aspect of the quadriceps tendon. The infrapatellar fat pad was partially excised to help with exposure. The soft tissue retinaculum was raised one-half of the way around the medial aspect of the proximal tibia. The patella was everted and the knee was flexed to 90?. There was no injury to the patellar tendon or its insertion onto the tibial tubercle. A drill bit was introduced into the distal aspect of the femur with a starting point 1 cm anterior to the origin of the posterior cruciate ligament. The intramedullary alignment helga was put into place. The distal alignment guide was set for a 5 degree valgus cut. The distal cutting block was put into place and was held with 4 pins. The intramedullary alignment helga was removed. Soft tissues were retracted in the distal femoral cut was made using a sagittal saw. The distal aspect of the femur measured to be a size 3 right component. Two drill holes were placed into the distal aspect of the femur marking 3? of external rotation. The distal cutting block was impacted into place and was held with 2 pins. Soft tissues were retracted and the 4 distal femoral cuts were made using a sagittal saw. Final notching and drilling of the distal aspect of the femur were performed in routine fashion. The trial femoral component was impacted into place. The knee was taken through a full range of motion. The patella tracked well. The patella was everted and the knee was flexed to 90?. The trial component was removed and our attention was directed to the proximal tibia. The medial and lateral menisci were removed using a #10 scalpel blade. A small rim of the medial meniscus was left intact to help prevent injury to the medial collateral ligament. A drill bit was then introduced into the proximal tibia with a starting point midway from medial to lateral and one-third of the way posteriorly. The intramedullary alignment helga was put into place. The proximal tibial cutting guide was placed over the alignment helga in line with the 2nd toe. The guide was held in place using 3 pins. The intramedullary alignment helga was removed. Soft tissues were retracted and the proximal tibial cut was made using a sagittal saw. The proximal tibia measured to be a size 4 component. The tibial tray was put into place with a 10 mm liner. The femoral component was impacted into place. The knee was taken through a full range of motion. There was full flexion and full extension. There was no instability with varus or valgus stress testing with the knee in flexion or extension. The patella tracked well with no medially directed force. The rotation of the tibial tray was marked using electrocautery with the knee in extension. The patella was everted and the knee was flexed to 90?. All trial components were removed. The tibial tray was placed onto the proximal tibia in line with the electrocautery mariana. The tray was held in place using 3 pins. Final broaching of the proximal tibia was performed in routine fashion. The trial liner and trial femoral component were put into place. The knee was brought into extension and our attention was directed to the patella. The patella measured 25 mm in thickness. The patellar resection guide was set for a 10 mm resection. Soft tissues were retracted and the patella cut was made using a sagittal saw. The remaining patella measured 15 mm in thickness. The undersurface of the patella was measured to be a size 29 asymmetric component. Three drill holes were placed into the undersurface of the patella in routine fashion. The trial component was put into place. The knee was taken through a full range of motion. The patella tracked well. The patella was everted and the knee was flexed to 90?. All trial components were removed. The knee was once again brought into extension and placed onto a small bump. The knee joint was irrigated with copious amounts of normal saline solution via pulse lavage while the cement was mixed. The patella was everted and the knee was flexed to 90?. A small amount of cement was placed along the posterior aspects of the tibial and femoral components. Cement was then pressurized into the proximal tibia. The tibial component was impacted into place. Any excess cement was removed. The polyethylene liner was then impacted into place. Cement was then pressurized into the distal aspect of the femur. A small amount of cement was placed into the intramedullary canal to help reduce bleeding. The femoral component was impacted into place. Any excess cement was removed. The knee was then brought into extension. Cement was pressurized into the undersurface of the patella. The patellar component was put into place and was held with a patella clamp. Any excess cement was removed. Once the cement had hardened the patellar clamp was removed. The knee was taken through a full range of motion. There was full flexion and extension. There was no instability with varus or valgus stress testing with the knee in flexion or extension. The patella tracked well with no medially directed force. The knee joint was irrigated with copious amounts of normal saline solution via pulse lavage. Any significant bleeding vessels were coagulated. The patient's right knee was placed onto a small bump. The arthrotomy was closed with #2 Ethibond styhli-gu-flfim interrupted suture as well as #1 Vicryl oallhl-hj-eigud interrupted suture. The wound was once again irrigated. The subcutaneous tissues were closed with 0 Vicryl and 2-0 Vicryl interrupted sutures. The skin was closed with skin kameron. Dry sterile dressing and Pawel bandages were placed over the patient's right knee. The patient was awake and alert. The patient was transferred to the recovery room in stable condition.
--- NOTE | 2024-05-13 12:52 | PHA.MEDREC ---
Pharmacy Consult ? Medication Reconciliation Pharmacy has completed the medication reconciliation. Checked med rec done by nursing
[2024-05-13] MEDS: Celecoxib 200 MG CAPSULE PO ×2 (13:19→21:58)
[2024-05-13] MEDS: Losartan Potassium 50 MG TABLET PO (13:19)
[2024-05-13] MEDS: methocarbamoL 500 MG TABLET PO ×2 (13:19→21:58)
[2024-05-13] MEDS: oxyCODONE HCl ER 10 MG TAB.ER.12H PO ×2 (13:19→21:58)
--- NOTE | 2024-05-13 13:23 | PM.IMCN ---
History of Present Illness Data of Consult Service Date: 05/13/24 Primary Care Provider: Bette aCsillas MD HPI Reason for consult: Hypertension 68F PMH OA, htn, hld, uterine ca in remission, admitted status post elective right knee total arthroplasty. Patient has no active complaints. BP well controlled on losartan. On atorvastatin for hyperlipidemia. Review of Systems Review of Systems: Yes all other systems are reviewed and are negative [facility] Medical History Uterine cancer Asthma Varicose vein of leg Elevated cholesterol Arthritis HTN (hypertension) Family History Mother Stroke Father No problems noted. Maternal Aunt Breast cancer Surgical History Hx of hand surgery Hx of section History of partial hysterectomy Social History Housing: House Are you a primary care advocate to a significant other at home: No Do you presently have visiting nurse or other home services: No Alcohol intake: current Alcohol intake frequency: holidays/special occasions only Alcohol type: wine Comment: aware of trip hazard and will remove Patient Tobacco Use Status: Former Tobacco user Tobacco use type: Cigarette Years Smoked: 5 e-Cigarette/Vaping Use: Never Used Second Hand Smoke Exposure: No Use of substances other than those prescribed or required for medical reasons: No Have you been hit, kicked, punched, or otherwise hurt by someone within the past year? If so, by whom?: No Spiritual Healthcare Practices: none Restorationism Healthcare Practices: Denominational Cultural Healthcare Practices: none Are you DNR?: No Advance Directives: No (son is primary and spouse is secondary contact) Advance Directives Information Provided: Yes (as above noted) Advance Directives on File: No Recently lost weight without trying: No Eating poorly because of decreased appetite: No Nutrition Risks: No Nutritional Risk FDLMP: n/a Poor oral hygiene: No (lower partial and one lower crown) service: No Current occupational status: unemployed Cognitive needs: No Hearing needs: No Vision needs: No Meds Allergies Allergy/AdvReac Type Severity Reaction Status Date / Time No Known Allergies Allergy Verified 05/13/24 07:25 Active Medications: Current Medications Acetaminophen (Acetaminophen 325 Mg Tablet) 650 mg PO Q6H PRN PRN Reason: Pain, Mild 1-3,fever,headache Aspirin (Aspirin 325 Mg Tablet) 325 mg PO BID [facility] Atorvastatin Calcium (Atorvastatin Calcium 20 Mg Tablet) 20 mg PO BEDTIME [facility] Celecoxib (Celecoxib 200 Mg Capsule) 200 mg PO BID [facility] Last Admin: 05/13/24 13:19 Dose: 200 mg Gabapentin (Gabapentin 100 Mg Capsule) 100 mg PO BEDTIME [facility] Hydromorphone HCl (Hydromorphone Hcl 0.5 Mg/0.5 Ml Syringe) 0.25 mg IVPUSH Q4H PRN; Protocol PRN Reason: Pain, Moderate(Pain Scale 4-6) Hydromorphone HCl (Hydromorphone Hcl 0.5 Mg/0.5 Ml Syringe) 0.5 mg IVPUSH Q4H PRN; Protocol PRN Reason: Pain, Severe (Pain Scale 7-10) Lactated Ringer's (Lr) 1,000 mls @ 100 mls/hr IVCONT .Q10H [facility] Last Admin: 05/13/24 13:20 Dose: 100 mls/hr Cefazolin Sodium/Dextrose (Ancef) 2 gm in 50 mls @ 100 mls/hr IV Q8H [facility] Stop: 05/14/24 02:00 Losartan Potassium (Losartan Potassium 50 Mg Tablet) 50 mg PO DAILY [facility]; Protocol Last Admin: 05/13/24 13:19 Dose: 50 mg Magnesium Hydroxide (Milk Of Magnesia 30 Ml Oral.Susp) 30 ml PO DAILY PRN PRN Reason: Constipation Methocarbamol (Methocarbamol 500 Mg Tablet) 500 mg PO TID [facility] Last Admin: 05/13/24 13:19 Dose: 500 mg Oxycodone HCl (Oxycodone Hcl Immed Release 5 Mg Tablet) 5 mg PO Q4H PRN PRN Reason: Pain, Mild (Pain Scale 1-3) Oxycodone HCl (Oxycodone Hcl Immed Release 5 Mg Tablet) 10 mg PO Q4H PRN PRN Reason: Pain, Moderate(Pain Scale 4-6) Oxycodone HCl (Oxycodone Hcl Er 10 Mg Tab.Er.12h) 10 mg PO BID [facility] Last Admin: 05/13/24 13:19 Dose: 10 mg Sodium Chloride (0.9 % Sodium Chloride Flush 3 Ml Syringe) 3 ml IVFLUSH QSHIFT [facility] Home Medications ?Medication ?Instructions ?Recorded ?Confirmed ?Last Taken ?Type losartan 50 mg tablet 50 mg PO QAM 04/12/24 05/09/24 05/12/24 History Physical Exam Vital Signs and Narrative: Vital Signs: Last Vital Signs Temp 97 F 05/13/24 12:40 Pulse 52 05/13/24 12:40 Resp 16 05/13/24 12:40 BP 133/49 L 05/13/24 12:40 Pulse Ox 95 05/13/24 12:40 O2 Del Method Room Air 05/13/24 12:40 O2 Flow Rate 6 05/13/24 12:00 BMI result Body Mass Index 33.3 General: AO X 3, no acute distress Resp: CTA bilateral, no accessory muscles used CVS: S1,S2,RRR GI: soft, non tender, non distended Neuro: motor grossly intact, alert Psych: appropriate affect, appropriate insight Assessment and Plan (1) Essential hypertension: Status: Acute Plan 68F PMH OA, htn, hld, uterine ca in remission, admitted status post elective right knee total arthroplasty htn losartan hld statin will sign off, please recall if needed
--- NOTE | 2024-05-13 15:15 | PC.NURSE ---
Addendum entered by Bebe Ortiz RN 05/13/24 16:48: Pt able to stand and pivot to BSC and voided 600ML clear yellow urine, with good effort. Pt continues to deny pain. Original Note: Pt attempted to get OOB to bedside commode, pt stated she still does not have feeling in LEs due to spinal. Pt was able to sit at the edge of the bed for a few minutes then this RN and [employer] DRILLER helped pt back to bed. Pt instructed on using incentive spirometer, using it with good effect. All safety measures in place, pt due to void at 1840.
--- NOTE | 2024-05-13 15:45 | PC.NURSE ---
MD Gomez made aware pts BP 184/68, scheduled Losartan given at 13:19, pt asymptomatic. Pt denying pain at this time. Per MD stop IVF.
[2024-05-13] MEDS: ceFAZolin Sodium/Dextrose,Iso 2 GM/50 ML PIGGYBACK IV ×2 (16:00→23:28)
[2024-05-13] MEDS: Aspirin 325 MG TABLET PO ×2 (17:34→21:58)
[2024-05-13] MEDS: oxyCODONE HCl Immed Release 5 MG TABLET 10 MG PO ×2 (17:34→21:59)
[2024-05-13] MEDS: Atorvastatin Calcium 20 MG TABLET PO (21:58)
[2024-05-13] MEDS: Gabapentin 100 MG CAPSULE PO (21:58)
[2024-05-13] MEDS: 0.9 % Sodium Chloride Flush 3 ML SYRINGE IVFLUSH (22:01)
[2024-05-14] VITALS (8 sets, daily range): BP systolic 104–127; BP diastolic 53–62; PULSE 56–64; RESP 16–18; TEMP 36.1–37.2; O2SAT 93–97
[2024-05-14] MEDS: oxyCODONE HCl Immed Release 5 MG TABLET PO ×2 (02:09→11:53)
[2024-05-14 06:01] LABS: MANUAL DIFF FLAG NO
[2024-05-14 06:11] LABS: Basophils Percent Auto 0.1 % (0-2); Eosinophils Percent Auto 0.2 % (0-4); Hematocrit 34.7 % (37.0-47.0); Imm Gran Abs Auto 0.03 X10*3/uL (0.00-0.03); Imm Gran Pct Auto 0.3 % (0.0-0.4); Lymphocytes Absolute Auto 1.1 X10*3/uL (1.2-4.9); Lymphocytes Percent Auto 11.2 % (20-40); Mean Corpuscular HGB Conc 31.7 g/dl (31.0-35.0); Mean Corpuscular Hemoglobin 28.3 pg (27.0-33.0); Mean Corpuscular Volume 89.2 fL (80.0-98.0); Mean Platelet Volume 9.9 fL (9.4-12.3); Monocytes Absolute Auto 0.8 X10*3/uL (0.1-1.2); Monocytes Percent Auto 8.4 % (2-11); Neutrophils Absolute Auto 7.7 x10*3/uL (2.0-8.3); Neutrophils Percent Auto 79.8 % (45-73); Platelet Count 215 X10*3/uL (160-400); Red Blood Count 3.89 X10*6/uL (4.20-5.50); White Blood Count 9.7 X10*3/uL (4.8-10.8)
[2024-05-14 06:21] LABS: Anion Gap 9 (12-20); Blood Urea Nitrogen 16 mg/dL (9-16); Calcium 8.2 mg/dL (8.4-10.2); Carbon Dioxide 24 mmol/L (22-29); Chloride 109 mmol/L (96-108); Creatinine Clr Calc Pharmacy 62.9; Estimated Glomerular Filt Rate 59; Glucose Fasting 164 mg/dL (60-99); Potassium 4.4 mmol/L (3.3-5.1); Sodium 138 mmol/L (135-145)
[2024-05-14] MEDS: Aspirin 325 MG TABLET PO ×2 (07:42→21:04)
[2024-05-14] MEDS: Celecoxib 200 MG CAPSULE PO ×2 (07:43→21:03)
[2024-05-14] MEDS: methocarbamoL 500 MG TABLET PO ×3 (07:43→21:03)
[2024-05-14] MEDS: oxyCODONE HCl ER 10 MG TAB.ER.12H PO ×2 (07:43→21:03)
[2024-05-14] MEDS: 0.9 % Sodium Chloride Flush 3 ML SYRINGE IVFLUSH (07:45)
--- NOTE | 2024-05-14 08:09 | P.DS_ITS ---
DS: Providers Provider Date of Service: 05/14/24 Date of discharge: 05/14/24 Primary care physician: Bette Casillas MD Consults: 05/13/24 13:01 Consult to Hospitalist Routine Comment: Consulting Provider: [facility] Hospitalists Reason For Exam: Routine medical management DS: Diagnosis Discharge Diagnosis (1) Essential hypertension: Status: Acute DS: Summary Hospital Course Hospital Course: The patient underwent a successful right total knee arthroplasty, they were transferred to PACU and then to the floor to recover. During their stay, their vitals were stable, afebrile at 98.2. Labs were unremarkable, H/H 11.0/34.7. POD0 they were started on Aspirin 325mg po bid for DVT ppx, they also received Physical Therapy services twice a day. Prior to discharge, their dressing was clean dry and intact, and the plan was to be discharged home with VNA services. Time Attestation Discharge Coordination Time (in mins): 30 Quality: Safe Use of Opioids Does Pt have an Active Cancer Diagnosis on the Problem List?: No Quality: Stroke Does the patient have a stroke diagnosis?: No Physical Exam Vital Signs: Vital Signs: Last Vital Signs Temp 98.2 F 05/14/24 07:35 Pulse 56 05/14/24 07:35 Resp 16 05/14/24 07:35 BP 106/53 L 05/14/24 07:35 Pulse Ox 96 05/14/24 07:35 O2 Del Method Room Air 05/14/24 07:35 O2 Flow Rate 6 05/13/24 12:00 BMI result Body Mass Index 34.6 Const: General: cooperative, healthy appearing and no acute distress Resp: Effort & Inspection: normal respiratory effort and able to speak in complete sentences Cardio: Rate: regular rate Peripheral pulses: Peripheral pulses 2+ throughout GI: Palpation (GI): Soft to palpation Skin: Lesions: no lesions Rashes: no rashes Extrem: Other: right knee dressing is c/d/i. Able to dorsi/plantar flex. Calf is supple and nontender. Sensation intact. Pedal pulse intact. DS: Data Data Completed and Pending Pending studies at discharge: Pending at discharge 05/13/24 11:18 Surgical [PTH] Routine Labs on day of discharge: Laboratory Results - last 24 hr 05/14/24 05:54 WBC 9.7 RBC 3.89 L D Hgb 11.0 L D Hct 34.7 L D MCV 89.2 MCH 28.3 MCHC 31.7 RDW 12.0 Plt Count 215 MPV 9.9 Immature Gran % (Auto) 0.3 Neut % (Auto) 79.8 H Lymph % (Auto) 11.2 L [place] % (Auto) 8.4 Eos % (Auto) 0.2 Baso % (Auto) 0.1 Lymph # (Auto) 1.1 L [place] # (Auto) 0.8 Eos # (Auto) 0.0 Baso # (Auto) 0.0 Abs Immat Gran (auto) 0.03 Absolute Neuts (auto) 7.7 Absolute Nucleated RBC 0.000 Nucleated RBC % (auto) 0.0 Sodium 138 Potassium 4.4 Chloride 109 H Carbon Dioxide 24 Anion Gap 9 L BUN 16 Creatinine 0.95 Estim Creat Clear Calc 62.9 Estimated GFR 59 Fasting Glucose 164 H Calcium 8.2 L D Discharge Plan Discharge Patient Disposition: Home Health Service Referrals: Erendira Glass PA-C [Physician Senior Financial Consultant] - 05/30/24 10:00 am Discharge Medications: New methocarbamol 500 mg Tablet 500 mg PO TID 7 Days Qty: 21 0RF celecoxib 200 mg Capsule 200 mg PO BID 30 Days Qty: 60 0RF acetaminophen 325 mg Tablet 650 mg PO Q6H PRN (Reason: Pain, Mild 1-3,Fever,Headache) 30 Days Qty: 240 0RF aspirin 325 mg Tablet 325 mg PO BID 42 Days Qty: 84 0RF gabapentin 100 mg Capsule 100 mg PO BEDTIME 7 Days Qty: 7 0RF oxycodone 10 mg tablet 10 mg PO Q4H PRN (Reason: Pain, Moderate(Pain Scale 4-6)) 7 Days Qty: 42 0RF Rx Instructions: Partial Fill upon patient request. Continued atorvastatin 20 mg tablet 20 mg PO BEDTIME 90 Days Qty: 90 1RF (DME) oscar Misc See Rx Instructions .ROUTE .MEDSUPPLY Qty: 1 0RF Rx Instructions: Folding front wheeled walker losartan 50 mg tablet 50 mg PO QAM (DME) blood pressure monitor Kit See Rx Instructions .Route Qty: 1 0RF Rx Instructions: As directed Discharge Orders: Discharge Order (Routine); Ordered 05/14/24 Ordered By: Erendira Glass Diet: Advance to usual diet Activity on Discharge: Use cane or walker Activity Restrictions/Additional Instructions: Physical Therapy for ROM 0-120, quad strength, gait training. Use walker for ambulation Limit stair climbing, No shower, No tub bath, No driving Continue anticoagulant x 6 weeks Keep Aquacel dressing clean, dry and intact. Follow up with orthopedics in 2 weeks Print Language: Fijian
--- NOTE | 2024-05-14 08:10 | P.F2F_ITS ---
Service Date Service Date: 05/14/24 Encounter Date of encounter: 05/14/24 Reasons for Services Signs and symptoms assessed: Pt. is considered homebound due to recent surgery. Unable to drive, poor balance, poor gait mechanics. Reason for physical therapy: home safety and mobility, therapeutic exercises, restore joint function, gait/transfer training and ADL training Homebound: Leaving the home is medically contraindicated at this time without the asist of a device and/or another person due th the listed conditions above and below. Reason homebound: unsteady gait / fall risk, leg weakness, pain with ambulation, poor balance / fall risk and unable to drive Certification: Based on the above findings, I certify that this patient is confined to the home and needs intermittent long-term care, physical therapy and/or speech therapy, or continues to need occupational therapy. The patient is under my care, and I have initiated the establishment of the plan of care. The patient will be followed by a physician who will periodically review the plan of care. Time Spent With Patient Time: Total time managing care of this patient today ____ minutes.
[2024-05-14] MEDS: HYDROmorphone HCl 0.5 MG/0.5 ML SYRINGE IVPUSH (09:34)
--- NOTE | 2024-05-14 09:40 | MHC.CM.PN ---
Addendum entered by Courtney Abel RN 05/14/24 11:18: PT rec home w/ services. [facility] will provide PT. Per ortho, patient will dc later today. Original Note: Patient lives in a home w/ , son and grandchildren. Functionally independent denies use of DME or services prior to surgery. Did purchase a walker to use post op. PCP Bette Casillas No HCP. CM provided education and offered assistance. Patient declined. DP: Awaiting PT eval. Goal is home w/ services. [facility] following, per patient preference. Son will transport home. CM will continue to follow.
--- NOTE | 2024-05-14 11:46 | HO.POSTANES ---
Post Anesthesia Evaluation Post Anesthesia Evaluation Date of Service: 05/14/24 Vital Signs: Vital Signs Temp Pulse Resp BP Pulse Ox O2 Del Method 05/14/24 09:27 110/53 L 05/14/24 07:35 98.2 F 56 16 106/53 L 96 Room Air 05/14/24 02:36 97.8 F 64 18 118/57 L 96 Room Air Anesthesia: Spinal Mental Status: Awake Pain Control: Satisfactory Nausea/Vomiting: None Hydration: Adequate Anesthesia-Related Issues: No Anes. Related Issues
[2024-05-14] MEDS: ondansetron HCL 4 MG/2 ML VIAL IVPUSH (11:47)
[2024-05-14] MEDS: HYDROmorphone HCl 0.5 MG/0.5 ML SYRINGE 0.25 MG IVPUSH ×2 (13:18→21:05)
[2024-05-14] MEDS: Lactated Ringers 1,000 ML 100 ML IVCONT (14:41)
--- NOTE | 2024-05-14 15:10 | PM.PNORT ---
Subjective Subjective Date of Service: 05/14/24 Interval history: Postop day 1 status post right total knee No overnight events She has worked with therapy today but has had episodes of nausea and vomiting Denies shortness of breath chest pain or palpitations Physical Exam Vital Signs: Vital Signs: Last Vital Signs Temp 97 F 05/14/24 14:50 Pulse 56 05/14/24 14:50 Resp 18 05/14/24 12:00 BP 118/54 L 05/14/24 14:50 Pulse Ox 93 05/14/24 14:50 O2 Del Method Room Air 05/14/24 14:50 O2 Flow Rate 6 05/13/24 12:00 BMI result Body Mass Index 34.6 Const: General: cooperative, healthy appearing and no acute distress Resp: Effort & Inspection: normal respiratory effort and able to speak in complete sentences Cardio: Rate: regular rate Peripheral pulses: Peripheral pulses 2+ throughout GI: Palpation (GI): Soft to palpation Skin: General skin exam: no rashes or lesions noted Extrem: Other: Bandage clean dry and intact. Evangelista intact. No erythema or joint effusion. Calf supple nontender. Neurovascularly intact. Procedures Date of Service Date of Service: 05/14/24 Progress Note: A&P Assessment and plan (1) Status post total right knee replacement: Status: Acute Assessment and Plan: Pain management Phenergan for nausea PT for right TKA weightbearing as tolerated Aspirin for DVT prophylaxis Dispo pending PT clearance and med clearance Time Spent With Patient Time: Total time managing care of this patient today ____ minutes. Quality Stroke Does the patient have a stroke diagnosis?: No VTE Prior VTE?: No VTE Risk Level:: Surgical - very high VTE Device Contraindication: N/A - Device Ordered VTE Drug Contraindication: N/A - Med Ordered
--- NOTE | 2024-05-14 18:19 | PC.NURSE ---
Pt unable to tolerate regular diet this shift, vomited after breakfast and lunch zofan given with mild effect. PA Maria Luisa notified, per PA pt will stay one more night discharge anticipated tomorrow morning. IVF ordered. PT worked with Pt two times this shift. Additionally, Pt was also able to ambulate in hallway with [employer] with minimal assistance and walker. All safety measures in place.
[2024-05-14] MEDS: Atorvastatin Calcium 20 MG TABLET PO (21:03)
[2024-05-14] MEDS: Gabapentin 100 MG CAPSULE PO (21:04)
[2024-05-15] MEDS: Lactated Ringers 1,000 ML 100 ML IVCONT (00:56)
[2024-05-15 03:22] VITALS: BP 120/55; PULSE 65; RESP 16; TEMP 36.9; O2SAT 92
[2024-05-15 05:54] LABS: MANUAL DIFF FLAG NO
[2024-05-15 05:59] LABS: Basophils Percent Auto 0.3 % (0-2); Eosinophils Absolute Auto 0.1 X10*3/uL (0.0-0.4); Eosinophils Percent Auto 0.8 % (0-4); Hematocrit 34.7 % (37.0-47.0); Hemoglobin 10.6 g/dl (12.0-16.0); Imm Gran Abs Auto 0.03 X10*3/uL (0.00-0.03); Imm Gran Pct Auto 0.4 % (0.0-0.4); Lymphocytes Absolute Auto 1.4 X10*3/uL (1.2-4.9); Lymphocytes Percent Auto 17.8 % (20-40); Mean Corpuscular HGB Conc 30.5 g/dl (31.0-35.0); Mean Corpuscular Volume 91.6 fL (80.0-98.0); Monocytes Absolute Auto 0.8 X10*3/uL (0.1-1.2); Monocytes Percent Auto 10.3 % (2-11); Neutrophils Absolute Auto 5.4 x10*3/uL (2.0-8.3); Neutrophils Percent Auto 70.4 % (45-73); Platelet Count 186 X10*3/uL (160-400); Red Blood Count 3.79 X10*6/uL (4.20-5.50); Red Cell Distribution Width 12.2 % (11.0-16.0); White Blood Count 7.6 X10*3/uL (4.8-10.8)
[2024-05-15 06:10] LABS: Anion Gap 9 (12-20); Blood Urea Nitrogen 10 mg/dL (9-16); Calcium 8.3 mg/dL (8.4-10.2); Carbon Dioxide 28 mmol/L (22-29); Chloride 108 mmol/L (96-108); Creatinine Clr Calc Pharmacy 80.8; Estimated Glomerular Filt Rate > 60; Glucose Random 92 mg/dL (60-115); Potassium 4.4 mmol/L (3.3-5.1); Sodium 141 mmol/L (135-145)
--- NOTE | 2024-05-15 07:35 | PM.PNORT ---
Subjective Subjective Date of Service: 05/15/24 Interval history: POD2 s/p RTKA Patient is resting in bed - C/o n+v yesterday No overnight events Pain is managed No additional complaints Physical Exam Vital Signs: Vital Signs: Last Vital Signs Temp 98.5 F 05/15/24 03:22 Pulse 65 05/15/24 03:22 Resp 16 05/15/24 03:22 BP 120/55 L 05/15/24 03:22 Pulse Ox 92 05/15/24 03:22 O2 Del Method Room Air 05/15/24 03:22 O2 Flow Rate 6 05/13/24 12:00 BMI result Body Mass Index 34.6 Const: General: cooperative, healthy appearing and no acute distress Resp: Effort & Inspection: normal respiratory effort and able to speak in complete sentences Cardio: Rate: regular rate Peripheral pulses: Peripheral pulses 2+ throughout GI: Palpation (GI): Soft to palpation Skin: Lesions: no lesions Rashes: no rashes Extrem: Other: rt knee dressing is c/d/i. Able to dorsi/plantar flex. Calf is supple and nontender. Sensation intact. Pedal pulse intact. Procedures Date of Service Date of Service: 05/15/24 Progress Note: A&P Assessment and plan (1) Status post total right knee replacement: Status: Acute Plan Continue pain mgmnt continue ASA for dvt ppx Continue PT for RTKA Dispo planning- PT, pain mgmnt, likely d/c later today if N+V improved Time Spent With Patient Time: Total time managing care of this patient today ____ minutes. Quality Stroke Does the patient have a stroke diagnosis?: No VTE Prior VTE?: No VTE Risk Level:: Surgical - very high VTE Device Contraindication: N/A - Device Ordered VTE Drug Contraindication: N/A - Med Ordered
--- NOTE | 2024-05-15 07:37 | W.MHC.F2F ---
Service Date Service Date: 05/15/24 Encounter Date of encounter: 05/15/24 Reasons for Services Signs and symptoms assessed: s/p RTKA Pt. is considered homebound due to recent surgery. Unable to drive, poor balance, poor gait mechanics. Reason for physical therapy: home safety and mobility, therapeutic exercises, restore joint function, gait/transfer training and ADL training Homebound: Leaving the home is medically contraindicated at this time without the asist of a device and/or another person due th the listed conditions above and below. Reason homebound: unsteady gait / fall risk, leg weakness, pain with ambulation, poor balance / fall risk and unable to drive Certification: Based on the above findings, I certify that this patient is confined to the home and needs intermittent snf care, physical therapy and/or speech therapy, or continues to need occupational therapy. The patient is under my care, and I have initiated the establishment of the plan of care. The patient will be followed by a physician who will periodically review the plan of care. Time Spent With Patient Time: Total time managing care of this patient today ____ minutes.
[2024-05-15 07:43] VITALS: BP 145/65; PULSE 69; RESP 16; TEMP 37; O2SAT 94
[2024-05-15] MEDS: methocarbamoL 500 MG TABLET PO (07:47)
[2024-05-15] MEDS: oxyCODONE HCl ER 10 MG TAB.ER.12H PO (07:47)
[2024-05-15] MEDS: Losartan Potassium 50 MG TABLET PO (07:47)
[2024-05-15] MEDS: Celecoxib 200 MG CAPSULE PO (07:47)
[2024-05-15] MEDS: Aspirin 325 MG TABLET PO (07:47)
--- NOTE | 2024-05-15 08:29 | MHC.CM.PN ---
Patient medically cleared for dc home w/ services via [facility]. Private transport.
[2024-05-15] MEDS: oxyCODONE HCl Immed Release 5 MG TABLET PO (08:40)
[2024-05-15 09:26] VITALS: BP 155/69; PULSE 77; RESP 18; TEMP 36.6; O2SAT 97
== END 2024-05-15 09:54 | disposition home health service (06) ==
LOC: HO.SSS 12:28 → HO.S3 12:30
PROVIDERS: Physician Assistant; PCP Internal Medicine; Visit Provider Orthopaedic Surgery
PROC: (CPT 27447; principal; 2024-05-13 09:00)
DX: M17.11 Unilateral primary osteoarthritis, right knee (principal); G89.29 Other chronic pain; M25.561 Pain in right knee; R26.2 Difficulty in walking, not elsewhere classified; I10 Essential (primary) hypertension; E78.00 Pure hypercholesterolemia, unspecified; E66.9 Obesity, unspecified; Z68.34 Body mass index [BMI] 34.0-34.9, adult; I83.90 Asymptomatic varicose veins of unspecified lower extremity; J45.909 Unspecified asthma, uncomplicated; Z85.42 Personal history of malignant neoplasm of other parts of uterus; Z90.711 Acquired absence of uterus with remaining cervical stump; Z79.899 Other long term (current) drug therapy; Z98.890 Other specified postprocedural states; Z87.891 Personal history of nicotine dependence; Z56.0 Unemployment, unspecified
CPT/HCPCS: 27447; 36415; 80048; 85025; 86850; 86900; 86901; 87640; 87641; 88305; 88311; 97110; 97116; 97161; C1776; J0131; J0665; J0690; J1100; J1171; J2003; J2250; J2371; J2405; J2704; J3370; J7120

== ENCOUNTER → 2024-05-13 12:28 | Outpatient (BNV) | payer MEDICARE, SELFPAY | PROVIDERS: PCP Internal Medicine; Visit Provider Internal Medicine | DX: I10 Essential (primary) hypertension (principal) | CPT/HCPCS: 99221 ==

== ENCOUNTER 2024-05-30 09:46 | Outpatient (REF) | payer MEDICARE, SELFPAY ==
--- NOTE | ~2024-05-30 | XR_ITS ---
EXAMINATION: XR KNEE, RIGHT CLINICAL INFORMATION: M25.569 - Pain in unspecified knee COMPARISON: None available. TECHNIQUE: AP view bilateral knees standing, and lateral and patellofemoral views right knee. FINDINGS: There has been a total right knee arthroplasty. Tibial and femoral components are intact, well seated, in anatomic alignment. There has been patellar resurfacing. There are no fractures or periprosthetic complications. There are skin kameron ventrally. There is mild soft tissue swelling ventrally. Solitary AP image left knee demonstrates moderate medial compartment narrowing with marginal osteophytes. XR/XR knee RT 3V IMPRESSION: Right knee post total arthroplasty without complication. Electronically signed by: Phillip Rios MD 05/30/2024 11:13 AM MARY
--- OUTSIDE RECORDS SUMMARY | 2024-05-31 10:33 | XMS_ITS | Clinical Summary ---
Author Organization Unknown Care Team Providers Care Carpentry Instructor Name Role Phone DAVID GASCA MD Unavailable Unavailable CONNER PT, LIGIA Unavailable Unavailable LEEANNA RINCON, LIGIA Unavailable Unavailable Payers Payer Name Policy Type Policy Number Effective Date Expira tion Date MEDICARE.NGS.PDGM [id number] Problems Condition Name Condition Details Condition Category Status Onset Date Resolution Date Last Treatment Date Treating Clinician Comments UNILATERAL PRIMARY OSTEOARTHRIT IS, RIGHT KNEE Active 2023-04 00:00: 00 PRESENCE OF RIGHT ARTIFICIAL KNEE JOINT Active 2023-04 00:00: 00 Allergies, Adverse Reactions, Alerts Allergy Name Allergy Type Status Severity Reaction(s) Onset Date Inactive Date Treating Clinician Comments NO KNOWN ALLERGIES Propensity to adverse reactions Active 05-16 22:56: 22 Vital Signs Vital Name Observation Time Observation Value Commen ts Temperature 2024-05-23 10:11:00.000 97.9 [degF] Temperature 2024-05-21 15:27:00.000 98.1 [degF] Temperature 2024-05-16 22:54:00.000 97.1 [degF] BMI (%) 2024-05-16 22:54:00.000 33 kg/m2 Height 2024-05-16 22:54:00.000 64 [in_us] Pulse 2024-05-23 10:11:00.000 74 /min Pulse 2024-05-21 15:27:00.000 74 /min Pulse 2024-05-16 22:54:00.000 91 /min O2 Saturation (%) 2024-05-23 10:11:00.000 98 % O2 Saturation (%) 2024-05-21 15:27:00.000 98 % O2 Saturation (%) 2024-05-16 22:54:00.000 96 % Respirations 2024-05-23 10:11:00.000 16 /min Respirations 2024-05-21 15:27:00.000 16 /min Respirations 2024-05-16 22:54:00.000 18 /min Weight (lbs) 2024-05-16 22:54:00.000 193 [lb_av] Systolic Blood Pressure 2024-05-23 10:11:00.000 145 mm [Hg] Systolic Blood Pressure 2024-05-21 15:27:00.000 134 mm [Hg] Systolic Blood Pressure 2024-05-16 22:54:00.000 132 mm [Hg] Diastolic Blood Pressure 2024-05-23 10:11:00.000 84 mm [Hg] Diastolic Blood Pressure 2024-05-21 15:27:00.000 78 mm [Hg] Diastolic Blood Pressure 2024-05-16 22:54:00.000 64 mm [Hg] Plan of Treatment Planned Activity Planned Date Details Comments Future Scheduled Test AGENCY MAY PERFORM A RESUMPTION OF CARE VISIT FOLLOWING ANY HOSPITAL ADMISSION. PT TO EVALUATE, OBSERVE / ASSESS, AND MONITOR, CREDIT INVESTIGATOR TO OBSERVE AND MONITOR, PROVIDE SKILLED THERAPEUTIC INTERVENTION, ACTIVITY, EDUCATION, AND TRAINING TO ADDRESS; [code = AGENCY MAY PERFORM A RESUMPTION OF CARE VISIT FOLLOWING ANY HOSPITAL ADMISSION. PT TO EVALUATE, OBSERVE / ASSESS, AND MONITOR, CREDIT INVESTIGATOR TO OBSERVE AND MONITOR, PROVIDE SKILLED THERAPEUTIC INTERVENTION, ACTIVITY, EDUCATION, AND TRAINING TO ADDRESS;] Future Scheduled Test SIT TO/FRO M STAND TRANSFERS (PT/CREDIT INVESTIGATOR) [code = SIT TO/FROM STAND TRANSFERS (PT/CREDIT INVESTIGATOR)] Future Scheduled Test PT/CREDIT INVESTIGATOR TO PROVIDE GAIT TRAINING FOR IMPROVED MOBILITY AND /OR TO NORMALIZE GAIT PATTERN [code = PT/CREDIT INVESTIGATOR TO PROVIDE GAIT TRAINING FOR IMPROVED MOBILITY AND /OR TO NORMALIZE GAIT PATTERN] Future Scheduled Test PT/CREDIT INVESTIGATOR TO PROVIDE STAIR TRAINING [code = PT/CREDIT INVESTIGATOR TO PROVIDE STAIR TRAINING] Future Scheduled Test THERAPEUTI C EXERCISES AND ESTABLISHING A HOME EXERCISE PROGRAM (PT/CREDIT INVESTIGATOR) [code = THERAPEUTIC EXERCISES AND ESTABLISHING A HOME EXERCISE PROGRAM (PT/CREDIT INVESTIGATOR)] Future Scheduled Test PT/CREDIT INVESTIGATOR TO IDENTIFY FALL RISK FACTORS; EDUCATE THE PATIENT/CAREGIVER ON WAYS TO REDUCE FALL RISK FACTORS AND ESTABLISH HOME EXERCISE PROGRAM TO MINIMIZE FALL RISK. MAY TEACH THE PATIENT FLOOR RECOVERY WHEN CLINICALLY APPROPRIATE [code = PT/CREDIT INVESTIGATOR TO IDENTIFY FALL RISK FACTORS; EDUCATE THE PATIENT/CAREGIVER ON WAYS TO REDUCE FALL RISK FACTORS AND ESTABLISH HOME EXERCISE PROGRAM TO MINIMIZE FALL RISK. MAY TEACH THE PATIENT FLOOR RECOVERY WHEN CLINICALLY APPROPRIATE] Future Scheduled Test PT/CREDIT INVESTIGATOR TO TEACH KNEE REPLACEMENT SELF-MANAGEMENT [code = PT/CREDIT INVESTIGATOR TO TEACH KNEE REPLACEMENT SELF-MANAGEMENT] Future Scheduled Test PT / CREDIT INVESTIGATOR M AY EDUCATE ON PAIN MANAGEMENT CLINICALLY INDICATED, INCLUDING NON-PHARMACOLOGICAL PAIN REDUCTION TECHNIQUES [code = PT / CREDIT INVESTIGATOR MAY EDUCATE ON PAIN MANAGEMENT CLINICALLY INDICATED, INCLUDING NON-PHARMACOLOGICAL PAIN REDUCTION TECHNIQUES ] Future Scheduled Test PT / CREDIT INVESTIGATOR T O OBSERVE WOUND/INCISION AND/OR INTACT DRESSING ON R KNEE AND REPORT EARLY SIGNS AND SYMPTOMS OF WOUND DETERIORATION, COMPLICATIONS, OR INFECTION TO PHYSICIAN AND/OR THE RN CLINICAL ENTERPRISE APPLICATION ADMINISTRATOR FOR PHYSICIAN NOTIFICATION. [code = PT / CREDIT INVESTIGATOR TO OBSERVE WOUND/INCISION AND/OR INTACT DRESSING ON R KNEE AND REPORT EARLY SIGNS AND SYMPTOMS OF WOUND DETERIORATION, COMPLICATIONS, OR INFECTION TO PHYSICIAN AND/OR THE RN CLINICAL ENTERPRISE APPLICATION ADMINISTRATOR FOR PHYSICIAN NOTIFICATION.] Goal Patient Goal - WALK WITHOUT PAIN Goal Provider Goal - Goal Provider Goal - PT STG: PATIENT WILL DEMONSTRATE IMPROVED ABILITY TO PERFORM SIT TO/FROM STAND TRANSFERS TO REDUCE THE RISK OF SKIN BREAKDOWN AND REDUCE FALL RISK FROM MIN A TO INDEPENDENT WITHIN 2 WEEKS Goal Provider Goal - PT LTG: PATIENT WILL DEMONSTRATE IMPROVED AMBULATION FROM MIN A TO INDEPENDENT WITHIN 4 WEEKS Goal Provider Goal - PT LTG: PATIENT WILL DEMONSTRATE IMPROVED ABILITY TO SAFELY NEGOTIATE STAIRS FROM MIN A TO INDEPENDENT WITHIN 4 WEEKS Goal Provider Goal - PT STG: PATIENT WILL DEMONSTRATE INDEPENDENCE WITH BLE HEP WITHIN 2 WEEKS PT LTG: PATIENT WILL DEMONSTRATE INCREASED STRENGTH OF BLE FROM 3-/5 TO 4/5 WITHIN 4 WEEKS PT LTG: PATIENT WILL DEMONSTRATE INCREASED ROM OF R KNEE FROM -3-87 TO 0-110 WITHIN 4 WEEKS Goal Provider Goal - PT LTG: PATIENT/CAREGIVER WILL DEMONSTRATE ADHERENCE TO FALL REDUCTION SELF-MANAGEMENT AND REDUCING FALL RISK FACTORS TO MINIMIZE FALL RISK BY END OF EPISODE Goal Provider Goal - PT GOAL: PATIENT WILL DEMONSTRATE OPTIMAL OUTCOMES, INCLUDING INCREASED ROM AND STRENGTH AND FUNCTIONAL MOBILITY FOLLOWING KNEE SURGERY BY END OF EPISODE. Goal Provider Goal - PT GOAL: PATIENT WILL DEMONSTRATE UNDERSTANDING OF PAIN MANAGEMENT TECHNIQUES EVIDENCED BY REDUCED PAIN Goal Provider Goal - PT GOAL: THE PATIENT WILL NOT DEMONSTRATE ANY WOUND COMPLICATIONS DURING THE EPISODE OF CARE. Encounters Start Date/Time End Date/Time Encounter Type Admission Type Attending [facility] Care Department Encounter ID Discharge Date Discharge Status Discharge Condition Discharge Reason Percent Goals Met 2024-05-16 00:00:00 2024-07-14 00:00:00 Outpatient NEW ADMISSION LIGIA PRIETO [facility] [id number]
== END 2024-05-30 09:47 | disposition home or self-care (01) ==
LOC: HO.HOSX 09:46
PROVIDERS: Visit Provider Physician Assistant
DX: M25.561 Pain in right knee (principal); Z96.651 Presence of right artificial knee joint
CPT/HCPCS: 73562; 99212

== ENCOUNTER → 2024-05-30 09:58 | Outpatient (BNV) | payer MEDICARE, SELFPAY | PROVIDERS: Visit Provider Radiology Diagnostic Radiology | DX: M25.561 Pain in right knee (principal) | CPT/HCPCS: 73562 ==

== ENCOUNTER 2024-06-20 09:53 | Outpatient (AMB) | payer MEDICARE, SELFPAY ==
[2024-06-20 09:54] VITALS: BMI 34.5
--- NOTE | 2024-06-20 09:54 | A.OFFVIS_ITS ---
Vital Signs 06/20/24 09:54 Height 5 ft 4 in Weight 201 lb BMI 34.5 Intake Visit Reasons: 6WK PO: R TKA w/DR 05/13/24 Intake Note: Oliva is a 68 year old female who presents with complaints of mild to moderate discomfort in her right knee after undergoing right total knee replacement surgery on 05/13/2024. She continues with her physical therapy exercises. She denies any fevers or chills. She is no longer walking with an assistive device. Allergies No Known Allergies Allergy (Verified 06/20/24 09:54) Medication List - Last Reconciled 06/20/24 by Carlos Jordan MD acetaminophen 650 mg (2 x 325 mg) PO Q6H PRN 30 days amoxicillin 2,000 mg (4 x 500 mg) PO ONCE 1 day aspirin 325 mg PO BID 42 days atorvastatin 20 mg PO BEDTIME 90 days blood pressure monitor As directed celecoxib 200 mg PO BID 30 days gabapentin 100 mg PO BEDTIME 7 days losartan 50 mg PO QAM methocarbamol 500 mg PO TID 7 days ondansetron 8 mg PO Q12H PRN 7 days oxycodone 10 mg PO Q4H PRN 7 days walker Folding front wheeled walker [facility] Medical History Uterine cancer Asthma Varicose vein of leg Elevated cholesterol Arthritis HTN (hypertension) Surgical History Hx of hand surgery Hx of section History of partial hysterectomy Family History Mother Stroke Father No problems noted. Maternal Aunt Breast cancer Social History Housing: House Are you a primary hospice care sales consultant to a significant other at home: No Do you presently have visiting nurse or other home services: No Alcohol intake: current Alcohol intake frequency: holidays/special occasions only Alcohol type: wine Comment: aware of trip hazard and will remove Patient Tobacco Use Status: Former Tobacco user Tobacco use type: Cigarette Years Smoked: 5 e-Cigarette/Vaping Use: Never Used Second Hand Smoke Exposure: No service: No Current occupational status: unemployed Cognitive needs: No Hearing needs: No Vision needs: No Female Reproductive History Menstrual Age of Menarche: 17 Physical Exam Vital Signs: BMI result Body Mass Index 34.5 Extrem Other: Right knee examination shows that the surgical incision is well healed, no erythema, full active extension and flexion to 120 degrees, her patella tracks well Assessment & Plan Assessment & Plan (1) Right knee pain: Code(s): M25.561 - Pain in right knee Category: Medical Qualifiers: Chronicity: chronic Qualified Code(s): M25.561 - Pain in right knee; G89.29 - Other chronic pain Plan Ms. Joy continues to do very well after undergoing right total knee rep lacement surgery on 05/13/2024. She will begin outpatient physical therapy as scheduled next week. She does know to take antibiotics before any dental work. She will contact me prior to her follow-up appointment in 2 months should any questions or concerns arise. Feel free to call me at any time should questions regarding her orthopedic management arise. Coding Level of Care Code Global (62840) Diagnoses Chronic pain of right knee M25.561; G89.29 Chronicity: chronic
--- OUTSIDE RECORDS SUMMARY | 2024-06-20 11:19 | XMS_ITS | Clinical Summary ---
Author Organization Unknown Care Team Providers Care Cinder Pitman Name Role Phone DAVID GASCA MD Unavailable Unavailable CONNER PT, LIGIA Unavailable Unavailable LEEANNA RINCON, LIGIA Unavailable Unavailable Payers Payer Name Policy Type Policy Number Effective Date Expira tion Date MEDICARE.NGS.PDGM [id number] Problems Condition Name Condition Details Condition Category Status Onset Date Resolution Date Last Treatment Date Treating Clinician Comments AFTERCARE FOLLOWING JOINT REPLACEMENT SURGERY Active 05-16 00:00: 00 PRESENCE OF RIGHT ARTIFICIAL KNEE JOINT Active 05-13 00:00: 00 UNSPECIFIED OSTEOARTHRIT IS, UNSPECIFIED SITE Active 04-24 00:00: 00 ESSENTIAL (PRIMARY) HYPERTENSION Active 04-24 00:00: 00 MILD PERSISTENT ASTHMA, UNCOMPLICATE D Active 04-24 00:00: 00 VARICOSE VEINS OF RIGHT LOWER EXTREMITY WITH INFLAMMATION Active 04-24 00:00: 00 PURE HYPERCHOLEST EROLEMIA, UNSPECIFIED Active 04-24 00:00: 00 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 Active 05-13 00:00: 00 OTHER JAIL (CURRENT) DRUG THERAPY Active 05-13 00:00: 00 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 Ordering Clinician Indication Dosage Frequency Signature (SIG) Comments Components losartan 50 mg tablet 2023-04 00:00: 00 Yes [id number] HTN 1 tablet DAILY 1 tablet DAILY (route: oral) Med Classific ation: Cardiovas cular Therapy Agents acetaminoph en 325 mg tablet 05-16 00:00: 00 Yes [id number] PAIN 2 tablet EVERY 6 HOURS 2 tablet EVERY 6 HOURS (route: oral) Med Classific ation: Analgesic , Anti-infl ammatory or Antipyret ic aspirin 325 mg tablet 05-16 00:00: 00 Yes [id number] ANTICOAGULA NT 1 tablet 2 TIMES DAILY 1 tablet 2 TIMES DAILY (route: oral) Med Classific ation: Analgesic , Anti-infl ammatory or Antipyret ic atorvastati n 20 mg tablet 05-16 00:00: 00 Yes [id number] HLD 1 tablet BEDTIME 1 tablet BEDTIME (route: oral) Med Classific ation: Cardiovas cular Therapy Agents celecoxib 200 mg capsule 05-16 00:00: 00 Yes [id number] NSAID 1 capsule 2 TIMES DAILY 1 capsule 2 TIMES DAILY (route: oral) Med Classific ation: Analgesic , Anti-infl ammatory or Antipyret ic gabapentin 100 mg capsule 05-16 00:00: 00 Yes [id number] NERVE PAIN 1 capsule BEDTIME 1 capsule BEDTIME (route: oral) Med Classific ation: Central Nervous System Agents methocarbam ol 500 mg tablet 05-16 00:00: 00 Yes [id number] MUSCLE SPASMS 1 tablet 3 TIMES DAILY 1 tablet 3 TIMES DAILY (route: oral) Med Classific ation: Locomotor System oxycodone 10 mg tablet 05-16 00:00: 00 Yes [id number] PAIN 1 tablet EVERY 4 HOURS 1 tablet EVERY 4 HOURS (route: oral) Med Classific ation: Analgesic , Anti-infl ammatory or Antipyret ic Vital Signs Vital Name Observation Time Observation Value Commen ts Temperature 2024-06-14 11:23:00.000 97.6 [degF] Temperature 2024-06-11 09:51:00.000 98.1 [degF] Temperature 2024-06-07 09:25:00.000 98.1 [degF] Temperature 2024-06-04 09:21:00.000 98.1 [degF] Temperature 2024-05-31 09:23:00.000 97.9 [degF] Temperature 2024-05-23 10:11:00.000 97.9 [degF] Temperature 2024-05-21 15:27:00.000 98.1 [degF] Temperature 2024-05-16 22:54:00.000 97.1 [degF] BMI (%) 2024-05-16 22:54:00.000 33 kg/m2 Height 2024-05-16 22:54:00.000 64 [in_us] Pulse 2024-06-14 11:23:00.000 71 /min Pulse 2024-06-11 09:51:00.000 68 /min Pulse 2024-06-07 09:25:00.000 72 /min Pulse 2024-06-04 09:21:00.000 70 /min Pulse 2024-05-31 09:23:00.000 74 /min Pulse 2024-05-23 10:11:00.000 74 /min Pulse 2024-05-21 15:27:00.000 74 /min Pulse 2024-05-16 22:54:00.000 91 /min O2 Saturation (%) 2024-06-14 11:23:00.000 98 % O2 Saturation (%) 2024-06-11 09:51:00.000 98 % O2 Saturation (%) 2024-06-07 09:25:00.000 98 % O2 Saturation (%) 2024-06-04 09:21:00.000 97 % O2 Saturation (%) 2024-05-31 09:23:00.000 98 % O2 Saturation (%) 2024-05-23 10:11:00.000 98 % O2 Saturation (%) 2024-05-21 15:27:00.000 98 % O2 Saturation (%) 2024-05-16 22:54:00.000 96 % Respirations 2024-06-14 11:23:00.000 18 /min Respirations 2024-06-11 09:51:00.000 16 /min Respirations 2024-06-07 09:25:00.000 16 /min Respirations 2024-06-04 09:21:00.000 16 /min Respirations 2024-05-31 09:23:00.000 16 /min Respirations 2024-05-23 10:11:00.000 16 /min Respirations 2024-05-21 15:27:00.000 16 /min Respirations 2024-05-16 22:54:00.000 18 /min Weight (lbs) 2024-05-16 22:54:00.000 193 [lb_av] Systolic Blood Pressure 2024-06-14 11:23:00.000 136 mm [Hg] Systolic Blood Pressure 2024-06-11 09:51:00.000 155 mm [Hg] Systolic Blood Pressure 2024-06-07 09:25:00.000 132 mm [Hg] Systolic Blood Pressure 2024-06-04 09:21:00.000 148 mm [Hg] Systolic Blood Pressure 2024-05-31 09:23:00.000 136 mm [Hg] Systolic Blood Pressure 2024-05-23 10:11:00.000 145 mm [Hg] Systolic Blood Pressure 2024-05-21 15:27:00.000 134 mm [Hg] Systolic Blood Pressure 2024-05-16 22:54:00.000 132 mm [Hg] Diastolic Blood Pressure 2024-06-14 11:23:00.000 82 mm [Hg] Diastolic Blood Pressure 2024-06-11 09:51:00.000 70 mm [Hg] Diastolic Blood Pressure 2024-06-07 09:25:00.000 82 mm [Hg] Diastolic Blood Pressure 2024-06-04 09:21:00.000 76 mm [Hg] Diastolic Blood Pressure 2024-05-31 09:23:00.000 78 mm [Hg] Diastolic Blood Pressure 2024-05-23 10:11:00.000 84 mm [Hg] Diastolic Blood Pressure 2024-05-21 15:27:00.000 78 mm [Hg] Diastolic Blood Pressure 2024-05-16 22:54:00.000 64 mm [Hg] Plan of Treatment Planned Activity Planned Date Details Comments Future Scheduled Test AGENCY MAY PERFORM A RESUMPTION OF CARE VISIT FOLLOWING ANY HOSPITAL ADMISSION. PT TO EVALUATE, OBSERVE / ASSESS, AND MONITOR, BELT TURNER TO OBSERVE AND MONITOR, PROVIDE SKILLED THERAPEUTIC INTERVENTION, ACTIVITY, EDUCATION, AND TRAINING TO ADDRESS; [code = AGENCY MAY PERFORM A RESUMPTION OF CARE VISIT FOLLOWING ANY HOSPITAL ADMISSION. PT TO EVALUATE, OBSERVE / ASSESS, AND MONITOR, BELT TURNER TO OBSERVE AND MONITOR, PROVIDE SKILLED THERAPEUTIC INTERVENTION, ACTIVITY, EDUCATION, AND TRAINING TO ADDRESS;] Future Scheduled Test SIT TO/FRO M STAND TRANSFERS (PT/BELT TURNER) [code = SIT TO/FROM STAND TRANSFERS (PT/BELT TURNER)] Future Scheduled Test PT/BELT TURNER TO PROVIDE GAIT TRAINING FOR IMPROVED MOBILITY AND /OR TO NORMALIZE GAIT PATTERN [code = PT/BELT TURNER TO PROVIDE GAIT TRAINING FOR IMPROVED MOBILITY AND /OR TO NORMALIZE GAIT PATTERN] Future Scheduled Test PT/BELT TURNER TO PROVIDE STAIR TRAINING [code = PT/BELT TURNER TO PROVIDE STAIR TRAINING] Future Scheduled Test THERAPEUTI C EXERCISES AND ESTABLISHING A HOME EXERCISE PROGRAM (PT/BELT TURNER) [code = THERAPEUTIC EXERCISES AND ESTABLISHING A HOME EXERCISE PROGRAM (PT/BELT TURNER)] Future Scheduled Test PT/BELT TURNER TO IDENTIFY FALL RISK FACTORS; EDUCATE THE PATIENT/CAREGIVER ON WAYS TO REDUCE FALL RISK FACTORS AND ESTABLISH HOME EXERCISE PROGRAM TO MINIMIZE FALL RISK. MAY TEACH THE PATIENT FLOOR RECOVERY WHEN CLINICALLY APPROPRIATE [code = PT/BELT TURNER TO IDENTIFY FALL RISK FACTORS; EDUCATE THE PATIENT/CAREGIVER ON WAYS TO REDUCE FALL RISK FACTORS AND ESTABLISH HOME EXERCISE PROGRAM TO MINIMIZE FALL RISK. MAY TEACH THE PATIENT FLOOR RECOVERY WHEN CLINICALLY APPROPRIATE] Future Scheduled Test PT/BELT TURNER TO TEACH KNEE REPLACEMENT SELF-MANAGEMENT [code = PT/BELT TURNER TO TEACH KNEE REPLACEMENT SELF-MANAGEMENT] Future Scheduled Test PT / BELT TURNER M AY EDUCATE ON PAIN MANAGEMENT CLINICALLY INDICATED, INCLUDING NON-PHARMACOLOGICAL PAIN REDUCTION TECHNIQUES [code = PT / BELT TURNER MAY EDUCATE ON PAIN MANAGEMENT CLINICALLY INDICATED, INCLUDING NON-PHARMACOLOGICAL PAIN REDUCTION TECHNIQUES ] Future Scheduled Test PT / BELT TURNER T O OBSERVE WOUND/INCISION AND/OR INTACT DRESSING ON R KNEE AND REPORT EARLY SIGNS AND SYMPTOMS OF WOUND DETERIORATION, COMPLICATIONS, OR INFECTION TO PHYSICIAN AND/OR THE RN CLINICAL PARTY PLAN SALES UNIT ADVISOR FOR PHYSICIAN NOTIFICATION. [code = PT / BELT TURNER TO OBSERVE WOUND/INCISION AND/OR INTACT DRESSING ON R KNEE AND REPORT EARLY SIGNS AND SYMPTOMS OF WOUND DETERIORATION, COMPLICATIONS, OR INFECTION TO PHYSICIAN AND/OR THE RN CLINICAL PARTY PLAN SALES UNIT ADVISOR FOR PHYSICIAN NOTIFICATION.] Goal 2024-06-14 Patient Goal - WALK WITHOUT PAIN Goal [...] WOUND COMPLICATIONS DURING THE EPISODE OF CARE. Reason for Visit INDEPENDENT IN THE COMMUNITY Encounters Start Date/Time End Date/Time Encounter Type Admission Type Attending [facility] Care Department Encounter ID Discharge Date Discharge Status Discharge Condition Discharge Reason Percent Goals Met 2024-05-16 00:00:00 2024-06-14 00:00:00 Outpatient NEW ADMISSION LIGIA PRIETO [facility] [id number] 2024-06-14 00:00:00 DISCHARGE TO HOME OR SELF CARE INDEPENDEN T IN THE COMMUNITY HH ONLY - OUT PATIENT 69.23
--- OUTSIDE RECORDS SUMMARY | 2024-06-20 11:19 | XMS_ITS | Clinical Summary ---
Author Organization Unknown Care Team Providers Care Airplane Tester Name Role Phone DAVID GASCA MD Unavailable Unavailable CONNER PT, LIGIA Unavailable Unavailable LEEANNA RINCON, LIGIA Unavailable Unavailable Payers Payer Name Policy Type Policy Number Effective Date Expira tion Date MEDICARE.NGS.PDGM [id number] Problems Condition Name Condition Details Condition Category [...] HYPERCHOLEST EROLEMIA, UNSPECIFIED Active 04-24 00:00: 00 IRON MELTER (CURRENT) USE OF ASPIRIN Active 05-13 00:00: 00 OTHER HALF-WAY (CURRENT) DRUG THERAPY Active 05-13 00:00: 00 IRON MELTER (CURRENT) USE OF OPIATE ANALGESIC Active 05-13 [...] 50 mg tablet 2023-04 00:00: 00 Yes [id number] HTN 1 tablet DAILY 1 tablet DAILY (route: oral) Med Classific ation: Cardiovas cular Therapy Agents acetaminoph en 325 mg tablet 05-16 00:00: 00 Yes [id number] PAIN 2 tablet EVERY 6 HOURS 2 tablet EVERY 6 HOURS (route: oral) Med Classific ation: Analgesic , Anti-infl ammatory or Antipyret ic aspirin 325 mg tablet 05-16 00:00: 00 Yes [id number] ANTICOAGULA NT 1 tablet 2 TIMES DAILY 1 tablet 2 TIMES DAILY (route: oral) Med Classific ation: Analgesic , Anti-infl ammatory or Antipyret ic atorvastati n 20 mg tablet 05-16 00:00: 00 Yes [id number] HLD 1 tablet BEDTIME 1 tablet BEDTIME (route: oral) Med Classific ation: Cardiovas cular Therapy Agents celecoxib 200 mg capsule 05-16 00:00: 00 Yes [id number] NSAID 1 capsule 2 TIMES DAILY 1 capsule 2 TIMES DAILY (route: oral) Med Classific ation: Analgesic , Anti-infl ammatory or Antipyret ic gabapentin 100 mg capsule 05-16 00:00: 00 Yes [id number] NERVE PAIN 1 capsule BEDTIME 1 capsule BEDTIME (route: oral) Med Classific ation: Central Nervous System Agents methocarbam ol 500 mg tablet 05-16 00:00: 00 Yes [id number] MUSCLE SPASMS 1 tablet 3 TIMES DAILY 1 tablet 3 TIMES DAILY (route: oral) Med Classific ation: Locomotor System oxycodone 10 mg tablet 05-16 00:00: 00 Yes [id number] PAIN 1 tablet EVERY 4 HOURS 1 [...] TO EVALUATE, OBSERVE / ASSESS, AND MONITOR, GEAR TOOTH LAPPING MACHINE OPERATOR TO OBSERVE AND MONITOR, PROVIDE SKILLED THERAPEUTIC INTERVENTION, ACTIVITY, EDUCATION, AND TRAINING TO ADDRESS; [code = AGENCY MAY PERFORM A RESUMPTION OF CARE VISIT FOLLOWING ANY HOSPITAL ADMISSION. PT TO EVALUATE, OBSERVE / ASSESS, AND MONITOR, GEAR TOOTH LAPPING MACHINE OPERATOR TO OBSERVE AND MONITOR, PROVIDE SKILLED THERAPEUTIC INTERVENTION, ACTIVITY, EDUCATION, AND TRAINING TO ADDRESS;] Future Scheduled Test SIT TO/FRO M STAND TRANSFERS (PT/GEAR TOOTH LAPPING MACHINE OPERATOR) [code = SIT TO/FROM STAND TRANSFERS (PT/GEAR TOOTH LAPPING MACHINE OPERATOR)] Future Scheduled Test PT/GEAR TOOTH LAPPING MACHINE OPERATOR TO PROVIDE GAIT TRAINING FOR IMPROVED MOBILITY AND /OR TO NORMALIZE GAIT PATTERN [code = PT/GEAR TOOTH LAPPING MACHINE OPERATOR TO PROVIDE GAIT TRAINING FOR IMPROVED MOBILITY AND /OR TO NORMALIZE GAIT PATTERN] Future Scheduled Test PT/GEAR TOOTH LAPPING MACHINE OPERATOR TO PROVIDE STAIR TRAINING [code = PT/GEAR TOOTH LAPPING MACHINE OPERATOR TO PROVIDE STAIR TRAINING] Future Scheduled Test THERAPEUTI C EXERCISES AND ESTABLISHING A HOME EXERCISE PROGRAM (PT/GEAR TOOTH LAPPING MACHINE OPERATOR) [code = THERAPEUTIC EXERCISES AND ESTABLISHING A HOME EXERCISE PROGRAM (PT/GEAR TOOTH LAPPING MACHINE OPERATOR)] Future Scheduled Test PT/GEAR TOOTH LAPPING MACHINE OPERATOR TO IDENTIFY FALL RISK FACTORS; EDUCATE THE PATIENT/CAREGIVER ON WAYS TO REDUCE FALL RISK FACTORS AND ESTABLISH HOME EXERCISE PROGRAM TO MINIMIZE FALL RISK. MAY TEACH THE PATIENT FLOOR RECOVERY WHEN CLINICALLY APPROPRIATE [code = PT/GEAR TOOTH LAPPING MACHINE OPERATOR TO IDENTIFY FALL RISK FACTORS; EDUCATE THE PATIENT/CAREGIVER ON WAYS TO REDUCE FALL RISK FACTORS AND ESTABLISH HOME EXERCISE PROGRAM TO MINIMIZE FALL RISK. MAY TEACH THE PATIENT FLOOR RECOVERY WHEN CLINICALLY APPROPRIATE] Future Scheduled Test PT/GEAR TOOTH LAPPING MACHINE OPERATOR TO TEACH KNEE REPLACEMENT SELF-MANAGEMENT [code = PT/GEAR TOOTH LAPPING MACHINE OPERATOR TO TEACH KNEE REPLACEMENT SELF-MANAGEMENT] Future Scheduled Test PT / GEAR TOOTH LAPPING MACHINE OPERATOR M AY EDUCATE ON PAIN MANAGEMENT CLINICALLY INDICATED, INCLUDING NON-PHARMACOLOGICAL PAIN REDUCTION TECHNIQUES [code = PT / GEAR TOOTH LAPPING MACHINE OPERATOR MAY EDUCATE ON PAIN MANAGEMENT CLINICALLY INDICATED, INCLUDING NON-PHARMACOLOGICAL PAIN REDUCTION TECHNIQUES ] Future Scheduled Test PT / GEAR TOOTH LAPPING MACHINE OPERATOR T O OBSERVE WOUND/INCISION AND/OR INTACT DRESSING ON R KNEE AND REPORT EARLY SIGNS AND SYMPTOMS OF WOUND DETERIORATION, COMPLICATIONS, OR INFECTION TO PHYSICIAN AND/OR THE RN CLINICAL CATHODE RAY TUBE ASSEMBLER FOR PHYSICIAN NOTIFICATION. [code = PT / GEAR TOOTH LAPPING MACHINE OPERATOR TO OBSERVE WOUND/INCISION AND/OR INTACT DRESSING ON R KNEE AND REPORT EARLY SIGNS AND SYMPTOMS OF WOUND DETERIORATION, COMPLICATIONS, OR INFECTION TO PHYSICIAN AND/OR THE RN CLINICAL CATHODE RAY TUBE ASSEMBLER FOR PHYSICIAN NOTIFICATION.] Goal 2024-06-14 Patient Goal [...] End Date/Time Encounter Type Admission Type Attending [facility] Care Department Encounter ID Discharge Date Discharge Status Discharge Condition Discharge Reason Percent Goals Met 2024-05-16 00:00:00 2024-06-14 00:00:00 Outpatient NEW ADMISSION [facility] [id number] 2024-06-14 00:00:00 DISCHARGE TO HOME OR SELF CARE INDEPENDEN T IN THE COMM[facility] HH ONLY - OUT PATIENT 69.23
== END 2024-06-20 10:29 | disposition home or self-care (01) ==
PROVIDERS: PCP Internal Medicine; Visit Provider Orthopaedic Surgery
DX: M25.561 Pain in right knee (principal); G89.29 Other chronic pain
CPT/HCPCS: 99024

== ENCOUNTER → 2024-06-20 09:53 | Outpatient (BNVA) | payer MEDICARE, SELFPAY | PROVIDERS: PCP Internal Medicine; Visit Provider Orthopaedic Surgery | DX: Z47.1 Aftercare following joint replacement surgery (principal); G89.29 Other chronic pain; Z96.651 Presence of right artificial knee joint; Z98.890 Other specified postprocedural states | CPT/HCPCS: 99212 ==

== ENCOUNTER 2024-07-23 08:54 | Outpatient (RCR) | payer MEDICARE, SELFPAY ==
--- NOTE | 2024-06-24 13:49 | MHC.PT.EP ---
[facility] [place] Office [place] Office [place] Office [address] Pranay Wing [address] [facility] [phone] F: [phone] F: [phone] F: [phone] F: [phone] Physical Therapy Plan of Care Date of Evaluation: 06/24/24 Date of Surgery: 05/13/24 Diagnosis: presence of right artificial knee joint status post total right knee replacement Assessment: Patient is a 68 yo F who underwent TKR on 05/13/[address] Jordan with no post op complications. Patient reports she used a walker for the first week at home but does not use an AD now. Patient reports she is independent with all ADLs including driving, although has most difficulty with stairs, getting in/out car, donning pants while standing, and sleeping. Patient has decreased knee ROM, decreased R LE strength, impaired gait pattern, and decreased scar tissue mobility. Patient will be an excellent candidate due to her high PLOF, good post-op progression, and has no outstanding comorbidities. Physical therapy will include LE strengthening/stretching as well as manual therapy as needed for progression and functional carryover. Frequency and Duration: The patient will be seen 2x / 4 weeks Short Term Goals: Pt will have bilateral LE strength 5/5 Pt will have improved R knee extension to 0 degrees Pt will have improved R knee flexion to at least 125 degrees Mcc Goals: Pt will be able to demonstrate good body mechanics and LE strength to get in/out of car Pt will demonstrate improved strength to be able to have reciprocal stair negotiation Pt will be able to sleep through the night without waking due to R knee discomfort Pt will demonstrate statistically significant functional improvement with an increase in score evidenced by the LEFI by at least 9 points Treatment Plan: Modalities to reduce pain, spasms and effusion. Manual therapy to restore motion and function. Therapeutic exercise to improve strength and flexibility. Neuromuscular re-education for posture and balance. Therapeutic activities to return to functional activities of daily living. Electronically signed by: Krysta Zarco, PT, DPT Please sign and return to therapist. Thank you for your referral.
--- NOTE | 2025-02-24 09:16 | MHC.PT.DC ---
[facility] [place] Office [place] [facility] [place] [facility] [address] Pranay Wing [address] [phone] F: [phone] F: [phone] F: [phone] F: [phone] Physical Therapy Discharge Report Diagnosis: presence of right artificial knee joint status post total right knee replacement Date of Surgery: 05/13/24 Date of Evaluation: 06/24/24 Date of Discharge: 02/24/25 Treatments to Date: 9 Cancellations to Date: No Shows to Date: 1 Discharge Status: Discharge Summary: Pt was seen for skilled PT from 06/24/24-07/23/24. Her last attended and scheduled appointment was 07/23/24. She is being D/C from skilled PT as she has not attended or called to schedule in > 30 days. Pt current level of function unknown at this time Electronically signed by: Krysta Pryor, PT, DPT Please sign and return to therapist. Thank you for your referral.
== END 2025-02-24 09:16 | disposition home or self-care (01) ==
LOC: HO.PT 08:54
PROVIDERS: PCP Internal Medicine; Visit Provider Physician Assistant
DX: Z47.1 Aftercare following joint replacement surgery (principal); Z96.651 Presence of right artificial knee joint
CPT/HCPCS: 97110; 97140; 97161; 97530

== ENCOUNTER 2024-07-30 08:04 | Outpatient (AMB) | payer MEDICARE, SELFPAY ==
[2024-07-30 08:19] VITALS: BP 156/68; BMI 34.2
--- NOTE | 2024-07-30 08:19 | A.OFFPC_ITS ---
Vital Signs 07/30/24 08:19 Height 5 ft 3 in Weight 193 lb BMI 34.2 BP 156/68 H Blood Pressure Location Lt brachial Position Sitting Intake Visit Reasons: bp Intake Note: Patient here for bp follow up Supervisor Screen Printing Required: No Accompanied by: Self / Same As Patient Allergies No Known Allergies Allergy (Verified 07/30/24 08:34) Medication List - Last Reconciled 07/30/24 by Bette Casillas MD acetaminophen 650 mg (2 x 325 mg) PO Q6H PRN 30 days aspirin 325 mg PO BID 42 days atorvastatin 20 mg PO BEDTIME 90 days blood pressure monitor As directed celecoxib 200 mg PO BID 30 days gabapentin 100 mg PO BEDTIME 7 days losartan 50 mg PO QAM walker Folding front wheeled walker Tobacco use date assessed: 04/30/24 Fall risk assessment: No Falls in past year Last assessed Fall Risk: 07/30/24 Dental Screening Dental Screen Date: 04/30/24 HPI HPI Comments History of Present Illness Details The patient is a 68-year-old female presenting with a follow-up on her post-surgical right knee replacement and ongoing management of chronic conditions, including hypertension, hyperlipidemia, and mild anemia. She reports that the surgery took place on May 13 and she has made significant recovery progress thanks to indoor physical therapy and a cautious approach to her physical activities. Despite managing well postoperatively, the patient experiences nighttime pain and tiredness due to disrupted sleep, choosing to manage this with rest and icing. The patient's blood pressure readings have indicated some elevation, currently managed with Losartan 50 mg. She denies experiencing any chest pain or dyspnea. A historical diagnosis of mild anemia persists, with the patient expressing a desire to re-evaluate her blood health and vitamin levels at a future date. She has previously experienced anemia linked potentially to menstruation. [facility] Medical History (Updated 07/30/24 @ 09:38 by Bette Casillas MD) Essential hypertension Uterine cancer Asthma Varicose vein of leg Elevated cholesterol Arthritis HTN (hypertension) Surgical History History of total right knee replacement Hx of hand surgery Hx of section History of partial hysterectomy Family History Mother Stroke Father No problems noted. Maternal Aunt Breast cancer Social History Housing: House Are you a primary child care associate teacher to a significant other at home: No Do you presently have visiting nurse or other home services: No Alcohol intake: current Alcohol intake frequency: holidays/special occasions only Alcohol type: wine Comment: aware of trip hazard and will remove Patient Tobacco Use Status: Former Tobacco user Tobacco use type: Cigarette Years Smoked: 5 e-Cigarette/Vaping Use: Never Used Second Hand Smoke Exposure: No service: No Current occupational status: unemployed Cognitive needs: No Hearing needs: No Vision needs: No Female Reproductive History Menstrual Age of Menarche: 17 Questionnaire Thrive Questionnaire Date Thrive assessed: 05/14/24 EUNICE-7 AMB Questionnaire EUNICE-7 Date EUNICE - 7 assessed: 04/30/24 Source: Developed by Drs. Chaz Mitchell, Tina Tobin, Elias Chen and colleagues, with an educational corinna from [employer]. Review of Systems Const All systems reviewed & are unremarkable except as noted in HPI and below Card Denies chest pain at rest, Denies chest pain with activity, Denies edema, Denies irregular heart rhythm, Denies claudication, Denies dyspnea, Denies dyspnea on exertion, Denies orthopnea, Denies paroxysmal nocturnal dyspnea and Denies slow heart rate Resp Denies cough, Denies dyspnea and Denies dyspnea on exertion GI Denies abdominal pain, Denies change in bowel habits, Denies excessive flatus, Denies nausea and Denies vomiting Denies urinary incontinence, Denies urinary hesitancy and Denies urinary urgency Neuro Denies lack of coordination Physical exam (Primary Care) Vital Signs: Last Vital Signs BP 156/68 H 07/30/24 08:19 BMI result Body Mass Index 34.2 BMI Assessment/Plan discussion: High BMI High, discussed plan: lifestyle, weight reduction, dietary and physical activity Tobacco/Smoking Status: Tobacco use Status Tobacco use date assessed 04/30/24 07/30/24 08:24 Patient Tobacco Use Status Former Tobacco user 07/30/24 08:24 Tobacco use type Cigarette 07/30/24 08:24 e-Cigarette/Vaping Use Never Used 07/30/24 08:24 Thrive Assessment: Date of Thrive Assessment Date Thrive assessed 01/21/25 04/08/25 08:24 Resp Effort & Inspection: normal respiratory effort Auscultation: clear to auscultation bilaterally Cardio Jugular venous distension: no JVD Rate: regular rate Rhythm: regular rhythm Heart sounds: S1 normal heart sound present and S2 normal heart sound present Extrem General: Yes full ROM Coding Level of Care Code Est Pt Level 4 (51941) Complex EM visit Add On G2211 Diagnoses Essential hypertension I10 Status post total right knee replacement Z96.651 Chronic venous insufficiency of lower extremity I87.2 Pure hypercholesterolemia E78.00 Anemia D64.9 Impaired glucose tolerance R73.02 Time Spent (min) 23 Assessment & Plan Assessment & Plan (1) Essential hypertension: Code(s): I10 - Essential (primary) hypertension Category: Medical (2) Status post total right knee replacement: Code(s): Z96.651 - Presence of right artificial knee joint Category: Surgical (3) Chronic venous insufficiency of lower extremity: Code(s): I87.2 - Venous insufficiency (chronic) (peripheral) Category: Medical (4) Pure hypercholesterolemia: Code(s): E78.00 - Pure hypercholesterolemia, unspecified Category: Medical (5) Anemia: Code(s): D64.9 - Anemia, unspecified Category: Medical (6) Impaired glucose tolerance: Code(s): R73.02 - Impaired glucose tolerance (oral) Category: Medical Plan A watchful approach is adopted in managing this patient post-right knee replacement with an emphasis on combining non-pharmacological techniques such as icing and cautious activity, supplemented by Tylenol for pain relief as needed. The patient will continue Losartan for blood pressure control with follow-ups planned to monitor efficacy. Her anemia, known to be mild, is set for review alongside other vitamin level checks during upcoming blood work in four months. Patient was informed and verbally consented to the use of an ambient scribe for clinic note documentation during this visit. During our discussion, I emphasized to the patient the importance of taking a cautious approach to her recovery, gradually increasing her physical activity while continuing with physical therapy. There was a particular focus on managing her evening knee pain conservatively with recommended icing and limited activity. Her blood pressure routine will involve a recheck in a few weeks, ensuring balanced management with Losartan. Since anemia and fatigue surfaced as concurrent comorbidities, planned follow-up blood work was advised, pending her next scheduled health evaluation. I highlighted the significance of vitamin D in her energy levels. Regarding medication management, continuing her current regimen for hyperlipidemia is appropriate at this time. We concluded with the re assurance that her impressive progress thus far denotes good management, although vigilance remains vital. I ensured the patient understands the importance of managing her 's health-care demands, balancing with her recovery. Orders: Orders Comprehensive [place]. Panel Fast 4 Months E78.2 - Mixed hyperlipidemia Vitamin D 25-OH Total 4 Months E55.9 - Vitamin D deficiency, unspecified Complete Blood Count Auto Diff 4 Months D64.9 - Anemia, unspecified IRON PROFILE 4 Months D64.9 - Anemia, unspecified Lipid Panel 4 Months E78.5 - Hyperlipidemia, unspecified Medications: Discontinued aspirin Discontinued Reason: Patient Completed Course 325 mg PO BID 42 days 84 tabs 0RF gabapentin Discontinued Reason: Patient Completed Course 100 mg PO BEDTIME 7 days 7 caps 0RF Patient Instructions: - Continue cautious activity and non-pharmacologic pain management for knee. - Icing the knee as necessary while monitoring for discomfort. - Plan to check blood pressure in three weeks and schedule blood work in four months. - Maintain current medication regimen unless otherwise advised. - Monitor for any new or worsened symptoms. Seek medical help if needed for any abnormalities.
== END 2024-07-30 08:54 | disposition home or self-care (01) ==
LOC: HO.HMCH 08:04
PROVIDERS: PCP Internal Medicine; Visit Provider Internal Medicine
DX: I10 Essential (primary) hypertension (principal); Z96.651 Presence of right artificial knee joint; I87.2 Venous insufficiency (chronic) (peripheral); E78.00 Pure hypercholesterolemia, unspecified; D64.9 Anemia, unspecified; R73.02 Impaired glucose tolerance (oral)

== ENCOUNTER → 2024-07-30 08:04 | Outpatient (BNVA) | payer MEDICARE, SELFPAY | PROVIDERS: PCP Internal Medicine; Visit Provider Internal Medicine | DX: I10 Essential (primary) hypertension (principal); I87.2 Venous insufficiency (chronic) (peripheral); E78.00 Pure hypercholesterolemia, unspecified; D64.9 Anemia, unspecified; R73.02 Impaired glucose tolerance (oral); Z96.651 Presence of right artificial knee joint | CPT/HCPCS: 99212 ==

== ENCOUNTER 2024-08-05 09:58 | Outpatient (REF) | payer MEDICARE, SELFPAY ==
--- NOTE | ~2024-08-05 | US_ITS ---
EXAMINATION: US LOWER EXTREMITY VENOUS (REFLUX EXAM), BILATERAL CLINICAL INFORMATION: Varices. COMPARISON: Ultrasound venous right lower extremity dated November 07, 2023 demonstrated no DVT. TECHNIQUE: Color flow triplex imaging and compression Doppler was performed to evaluate both the deep and the superficial systems bilaterally. To evaluate the superficial system, the examination was performed in the upright position. Color-flow Doppler ultrasound and compression ultrasound were utilized. In addition, maneuvers were utilized to demonstrate reflux. FINDINGS: 1. DEEP VENOUS ULTRASOUND OF THE RIGHT LOWER EXTREMITY: Common Femoral Vein: Compressible, normal respiratory variation and augmented flow. Femoral Vein: Compressible, normal color flow and augmentation. Popliteal Vein: Compressible, normal augmentation. Deep Reflux: There is no evidence of reflux in the deep system in either the common femoral vein, superficial femoral or the popliteal vein. There is no evidence of a Meyer's cyst. 2. SUPERFICIAL ULTRASOUND WITH DOPPLER OF RIGHT LOWER EXTREMITY: GREAT SAPHENOUS VEIN: Saphenofemoral Junction: 0.9 cm; Reflux: 2696 ms Proximal Thigh: 0.6 cm; Reflux: 1916 ms Mid Thigh: 0.5 cm; Reflux: 2720 ms Distal Thigh: 0.6 cm; Reflux: 1792 ms At Knee: 0.6 cm; Reflux: 2392 ms Proximal Calf: 0.5 cm; Reflux: 1960 ms Mid Calf: 0.2 cm; Reflux: 0 ms Distal Calf: 0.1 cm; Reflux: 0 ms DUPLICATED MEDIAL GREAT SAPHENOUS VEIN: Diameter: 0.6 cm. Reflux: NA DUPLICATED LATERAL GREAT SAPHENOUS VEIN: Diameter: None imaged Reflux: NA SMALL SAPHENOUS VEIN: Saphenopopliteal Junction: 0.2 cm; Reflux: 0 ms Proximal: 0.1 cm; Reflux: 0 ms Distal: 0.3 cm; Reflux: 0 ms VEIN OF GIACOMINI: Size: NA Reflux: NA PERFORATORS: Location: Mid and distal calf Size: 0.3 cm. Reflux: NA VARICOSITIES: Location: Made thigh to the proximal calf. Size: 0.3-0.5 cm. Reflux: 1369-1880 ms at the knee and 1700 ms in the proximal calf. 3. DEEP VENOUS ULTRASOUND OF THE LEFT LOWER EXTREMITY: Common Femoral Vein: Compressible, normal respiratory variation and augmented flow. Femoral Vein: Compressible, normal color flow and augmentation. Popliteal Vein: Compressible, normal augmentation. Deep Reflux: There is no evidence of reflux in the deep system in either the common femoral vein, superficial femoral or the popliteal vein. There is a lobulated and septated irregular shaped 5.1 x 2.1 x 3.2 cm anechoic lesion without flow on color Doppler interrogation in the popliteal fossa. 4. SUPERFICIAL ULTRASOUND WITH DOPPLER OF LEFT LOWER EXTREMITY: GREAT SAPHENOUS VEIN: Saphenofemoral Junction: 0.9 cm; Reflux: 0 ms Proximal Thigh: 0.3 cm; Reflux: 0 ms Mid Thigh: 0.2 cm; Reflux: 0 ms Distal Thigh: 0.1 cm; Reflux: 0 ms At Knee: 0.1 cm; Reflux: 0 ms Proximal Calf: 0.1 cm; Reflux: 0 ms Mid Calf: 0.2 cm; Reflux: 0 ms Distal Calf: 0.1 cm; Reflux: 0 ms DUPLICATED MEDIAL GREAT SAPHENOUS VEIN: Diameter: None imaged Reflux: NA DUPLICATED LATERAL GREAT SAPHENOUS VEIN: Diameter: 0.3 cm. Reflux: NA SMALL SAPHENOUS VEIN: Saphenopopliteal Junction: 0.2 cm; Reflux: 0 ms Proximal: 0.1 cm; Reflux: 0 ms Distal: 0.2 cm; Reflux: 0 ms VEIN OF GIACOMINI: Size: 0.2 cm. Reflux: NA PERFORATORS: Location: Mid thigh, proximal and mid calf. Size: 0.2 cm. Reflux: NA VARICOSITIES: Location: None Imaged Size: NA Reflux: NA US/US venous insuf bilat IMPRESSION: Right: Venous insufficiency, great saphenous vein from the proximal thigh to the proximal calf. Varices with reflux at the knee and proximal calf. Left: No venous insufficiency. Perforators without reflux. 5.1 cm complex septated popliteal cyst.. Electronically signed by: Bharat Pierce MD 08/06/2024 09:02 AM EDT
== END 2024-08-05 09:59 | disposition home or self-care (01) ==
LOC: HO.US 09:58
PROVIDERS: PCP Internal Medicine; Visit Provider Surgery Vascular Surgery
DX: I83.11 Varicose veins of right lower extremity with inflammation (principal)
CPT/HCPCS: 93970

== ENCOUNTER → 2024-08-05 10:01 | Outpatient (BNV) | payer MEDICARE, SELFPAY | PROVIDERS: PCP Internal Medicine; Visit Provider Radiology Diagnostic Radiology | DX: I87.2 Venous insufficiency (chronic) (peripheral) (principal); M71.22 Synovial cyst of popliteal space [Baker], left knee | CPT/HCPCS: 93970 ==

== ENCOUNTER 2024-08-20 09:02 | Outpatient (AMB) | payer MEDICARE, SELFPAY ==
--- NOTE | 2024-08-20 09:16 | A.OFFVIS_ITS ---
Vital Signs 08/20/24 09:20 Height 5 ft 3 in Weight 193 lb BMI 34.2 Intake Visit Reasons: PO: R TKA w/DR 05/13/24-2 month follow up Intake Note: Oliva is a 68 year old female who presents today for a 2 month follow up of right knee after undergoing right total knee replacement surgery on 05/13/2024. Patient reports she is doing well, she has intermittent mild discomfort. She states that she does take Tylenol intermittently at night to help her sleep. She continues with her home exercise program. Allergies No Known Allergies Allergy (Verified 08/20/24 09:19) Medication List - Last Reconciled 08/20/24 by Carlos Jordan MD acetaminophen 650 mg (2 x 325 mg) PO Q6H PRN 30 days atorvastatin 20 mg PO BEDTIME 90 days blood pressure monitor As directed losartan 50 mg PO QAM walker Folding front wheeled walker [facility] Medical History (Updated 07/30/24 @ 09:38 by Bette Casillas MD) Essential hypertension Uterine cancer Asthma Varicose vein of leg Elevated cholesterol Arthritis HTN (hypertension) Surgical History (Reviewed 08/20/24 @ 09:21 by Kristy Artis [facility]) History of total right knee replacement Hx of hand surgery Hx of section History of partial hysterectomy Family History Mother Stroke Father No problems noted. Maternal Aunt Breast cancer Social History Housing: House Are you a primary career services coordinator to a significant other at home: No Do you presently have visiting nurse or other home services: No Alcohol intake: current Alcohol intake frequency: holidays/special occasions only Alcohol type: wine Comment: aware of trip hazard and will remove Patient Tobacco Use Status: Former Tobacco user Tobacco use type: Cigarette Years Smoked: 5 e-Cigarette/Vaping Use: Never Used Second Hand Smoke Exposure: No service: No Current occupational status: unemployed Cognitive needs: No Hearing needs: No Vision needs: No Female Reproductive History Menstrual Age of Menarche: 17 Physical Exam Vital Signs: BMI result Body Mass Index 34.2 Const Other: Well-nourished well-developed very friendly female awake alert and oriented x3 in no acute distress Extrem Other: Bilateral lower extremity examination shows good capillary refill, no skin lesions noted, normal sensation light touch Right knee examination shows that the surgical incision is well healed, no erythema, full active extension and flexion to 120 degrees, her patella tracks w ell Assessment & Plan Assessment & Plan (1) Right knee pain: Code(s): M25.561 - Pain in right knee Category: Medical Qualifiers: Chronicity: chronic Qualified Code(s): M25.561 - Pain in right knee; G89.29 - Other chronic pain Plan Ms. Joy continues to do very well after undergoing right total knee replacement surgery on 05/13/2024. She will continue with her home stretching program to prevent stiffness. She does know to take antibiotics before any dental work. She will contact me prior to her follow-up appointment in 3 months should any questions or concerns arise. Feel free to call me at any time should questions regarding her orthopedic management arise. I spent 20 minutes in reviewing the patient's records and imaging studies, seeing the patient and documenting in the medical record. Coding Level of Care Code Est Pt Level 3 (98421) Complex EM visit Add On G2211 Diagnoses Chronic pain of right knee M25.561; G89.29 Chronicity: chronic
[2024-08-20 09:20] VITALS: BMI 34.2
== END 2024-08-20 09:38 | disposition home or self-care (01) ==
LOC: HO.HOS 09:06
PROVIDERS: PCP Internal Medicine; Visit Provider Orthopaedic Surgery
DX: M25.561 Pain in right knee (principal); G89.29 Other chronic pain
CPT/HCPCS: 99213; G2211

== ENCOUNTER → 2024-08-20 09:02 | Outpatient (BNVA) | payer MEDICARE, SELFPAY | PROVIDERS: PCP Internal Medicine; Visit Provider Orthopaedic Surgery | DX: M25.561 Pain in right knee (principal); G89.29 Other chronic pain | CPT/HCPCS: 99212 ==

== ENCOUNTER 2024-08-27 12:51 | Outpatient (AMB) | payer MEDICARE, SELFPAY ==
[2024-08-27 12:56] VITALS: BP 158/76; BMI 34.2
--- NOTE | 2024-08-27 12:56 | MHC.OFFVIS ---
Vital Signs 08/27/24 12:56 Height 5 ft 3 in Weight 193 lb BMI 34.2 BP 158/76 H Blood Pressure Location Lt brachial Position Sitting Intake Visit Reasons: US Follow up Intake Note: Pt presents to the office today for a US follow up. Pt states she is still having more trouble with her right leg than her left. Allergies No Known Allergies Allergy (Verified 08/27/24 12:58) HPI HPI US Follow up: Details: The patient is a 68-year-old female presenting with follow-up for venous insufficiency in the right leg. She reports that her right leg experiences more symptoms compared to her left leg, which is asymptomatic. She had previously undergone knee surgery on May 13 and has noted subsequent swelling in the right leg, a condition expected after such a procedure. She experienced a transient yellow discoloration in the leg, causing initial concern until reassured it was a typical post-operative occurrence by home care staff. Her physical therapy regimen includes a variety of exercises and equipment usage designed for rehabilitation. Despite compliance, she experiences sensations in the vein that mirror pre-surgical feelings. The right leg's vein is notably distended compared to baseline evaluations. She now presents for vascular follow-up with venous insufficiency testing [facility] Medical History Essential hypertension Uterine cancer Asthma Varicose vein of leg Elevated cholesterol Arthritis HTN (hypertension) Surgical History History of total right knee replacement Hx of hand surgery Hx of section History of partial hysterectomy Family History Mother Stroke Father No problems noted. Maternal Aunt Breast cancer Social History Housing: House Are you a primary hourly caregiver to a significant other at home: No Do you presently have visiting nurse or other home services: No Alcohol intake: current Alcohol intake frequency: holidays/special occasions only Alcohol type: wine Comment: aware of trip hazard and will remove Patient Tobacco Use Status: Former Tobacco user Tobacco use type: Cigarette Years Smoked: 5 e-Cigarette/Vaping Use: Never Used Second Hand Smoke Exposure: No service: No Current occupational status: unemployed Cognitive needs: No Hearing needs: No Vision needs: No Female Reproductive History Menstrual Age of Menarche: 17 Review of Systems Const Reports as per HPI ENT Reports no additional complaints Card Denies chest pain, Denies chest pain at rest and Denies chest pain with activity Resp Denies chest congestion and Denies cough GI Reports no additional complaints Musc Details: pain over varicosities, aching of lower extremities, swelling, cramping, heaviness and tiredness, itching Denies abnormal gait Skin/Breast Reports pruritus and Denies wounds Neuro Reports no additional complaints and Denies abnormal gait Psych Denies no additional complaints Physical Exam Vital Signs: Last Vital Signs BP 158/76 H 08/27/24 12:56 BMI result Body Mass Index 34.2 Const General: cooperative, healthy appearing and comfortable Orientation/consciousness: oriented to person, oriented to place and oriented to time Neck Carotids: no bruits Chest Chest palpation & inspection: normal inspection of the chest and normal palpation of entire chest wall Resp Effort & Inspection: normal respiratory effort and able to speak in complete sentences Cardio Rate: regular rate Heart sounds: S1 normal heart sound present and S2 normal heart sound present Peripheral pulses: Peripheral pulses 2+ throughout GI Inspection: Yes normal to inspection Skin Other: +2 edema, large rope-like varicosities greater than 4 mm CEAP Classification C4 - skin color changes Ep - Etiology Primary As - superficial veins P - reflux General skin exam: dry skin Neuro General: oriented to person, oriented to place and oriented to time Extrem Right lower extremity: full ROM, normal capillary refill and edema Left lower extremity: full ROM, normal capillary refill and edema Psych Mental Status: mental status grossly normal Results Reviewed Results Reviewed: Brief summary of venous insufficiency testing is as follows: right great saphenous vein: Positive right small saphenous vein: negative right accessory vein: none present left great saphenous vein: negative left small saphenous vein: negative left accessory vein: none present Please note there is no evidence of any venous aneurysms or significant tortuosity Assessment & Plan Assessment & Plan (1) Varicose veins of right lower extremity with inflammation: Code(s): I83.11 - Varicose veins of right lower extremity with inflammation Category: Medical Plan: This patient has varicose veins with inflammation. They continue to be a source of discomfort for the patient. The patient has tried conservative treatment with compression, leg elevation and exercise program for over 3 months time. They have been compliant with all treatment. This has provided minimal relief for the patient. I do not anticipate this course of treatment will alter the underlying etiology. The patient has been scheduled for lower extremity venous treatment inclusive of --- right great saphenous vein radiofrequency ablation. Risks, benefits, and complications of this procedure has been discussed in detail with the patient including but not limited to bleeding, infection, and the development of a DVT. The patient has demonstrated a clear understanding and has consented. We will schedule the patient as soon as possible. Thank you for allowing us to participate in this patient's care. If there are any questions or concerns please do not hesitate to contact us. Coding Level of Care Code Est Pt Level 4 (63964) Diagnoses Varicose veins of right lower extremity with inflammation I83.11
== END 2024-08-27 13:32 | disposition home or self-care (01) ==
LOC: HO.HVS 12:52
PROVIDERS: PCP Internal Medicine; Visit Provider Surgery Vascular Surgery
DX: I83.11 Varicose veins of right lower extremity with inflammation (principal)
CPT/HCPCS: 99214

== ENCOUNTER → 2024-08-27 12:51 | Outpatient (BNVA) | payer MEDICARE, SELFPAY | PROVIDERS: PCP Internal Medicine; Visit Provider Surgery Vascular Surgery | DX: I83.11 Varicose veins of right lower extremity with inflammation (principal) | CPT/HCPCS: 99212 ==

== ENCOUNTER → 2024-09-05 09:26 | Outpatient (BNVA) | payer MEDICARE, SELFPAY | PROVIDERS: PCP Internal Medicine | DX: Z13.89 Encounter for screening for other disorder (principal) ==

== ENCOUNTER 2024-09-13 07:23 | Outpatient (AMB) | payer MEDICARE, SELFPAY ==
--- NOTE | 2024-09-13 07:39 | MHC.OFFVIS ---
Vital Signs 09/13/24 07:40 Height 5 ft 3 in Weight 193 lb BMI 34.2 Intake Visit Reasons: Right GSV RFA Accompanied by: Self / Same As Patient Allergies No Known Allergies Allergy (Verified 09/13/24 07:40) [facility] Medical History Essential hypertension Uterine cancer Asthma Varicose vein of leg Elevated cholesterol Arthritis HTN (hypertension) Surgical History History of total right knee replacement Hx of hand surgery Hx of section History of partial hysterectomy Family History Mother Stroke Father No problems noted. Maternal Aunt Breast cancer Social History Housing: House Are you a primary group care worker to a significant other at home: No Do you presently have visiting nurse or other home services: No Alcohol intake: current Alcohol intake frequency: holidays/special occasions only Alcohol type: wine Comment: aware of trip hazard and will remove Patient Tobacco Use Status: Former Tobacco user Tobacco use type: Cigarette Years Smoked: 5 e-Cigarette/Vaping Use: Never Used Second Hand Smoke Exposure: No service: No Current occupational status: unemployed Cognitive needs: No Hearing needs: No Vision needs: No Female Reproductive History Menstrual Age of Menarche: 17 Physical Exam Vital Signs: BMI result Body Mass Index 34.2 Office Procedures Vascular Office Procedure Details Details: Diagnosis: Varicose veins with inflammation of right leg Procedure: Endovenous radiofrequency ablation of the right great saphenous vein(s) of the lower extremity. Anesthesia: Local infiltration 5 cc, Tumescent 300 cc. Estimated Blood Loss: minimal Specimen: Varicose veins The patient was transferred to the procedure suite and the insufficient saphenous vein was mapped by ultrasound and diagrammed on the overlying skin. The depth and diameter of the vein(s) to be treated was documented. The varicose tributary veins and suitable access sites were identified and mapped as well. The patient was then positioned supine on the procedure table. The affected limb was prepped and draped in the usual sterile fashion. The RF catheter was placed on the sterile field, flushed and wiped down, prepared, and connected by a sterile cable. The patient was placed in supine position and local anesthesia was instilled in the skin overlying the access site. A skin incision was made overlying the identified and mapped great saphenous vein entry site. The vein was accessed using ultrasound guidance and the Seldinger technique, a guide wire was introduced through the needle, which was then exchanged over the guide wire for a 6F sheath, which was secured in place. The guide wire was removed and the sheath was flushed. The RF catheter was placed into the vein through the sheath and preferentially, imaging was used to place the catheter tip just inferior to the superficial epigastric vein to preserve normal physiological flow in that vein. Additionally, it was confirmed by ultrasound guidance that the catheter tip was also placed a minimum of 1.5cm distal to the saphenofemoral junction. After the RF catheter position was verified by ultrasound, tumescent anesthesia was infiltrated, under ultrasound guidance, precisely into the perivenous compartment along the entire length of vein from the entry site to the saphenofemoral junction until a halo of fluid was noted around the vein. The patient was then placed in supine position to further exsanguinate the superficial venous system. After RF catheter position was again confirmed with ultrasound imaging, and under direct external compression along the length of the heating element, RF energy was applied. The vein was segmentally ablated by heating a 8 cm segment and then indexing the catheter forward by 7.5 cm until the treatment length is completed. Device temperature was maintained at 120 plus or minus 5 degrees C with an initial power level of 40W dropping to below 20W for each treatment. Total vein length treated 24 cm Total cycles of RF 4. Repeat ultrasound of the saphenous vein was performed, confirming successful treatment. The catheter and sheath were withdrawn and hemostasis established with direct pressure. After assuring hemostasis, the skin incision over the saphenous vein was closed with a bandage and a compression wrap, and/ or graduated compression stocking was applied from the level of the foot to the most proximal level of the thigh. 69099 - Endovenous RF, 1st Vein All charges added?: Procedure code (CPT) selection complete Assessment & Plan Assessment & Plan (1) Varicose veins of right lower extremity with inflammation: Comment: 09/13/2024-right great saphenous vein radiofrequency ablation Code(s): I83.11 - Varicose veins of right lower extremity with inflammation Category: Medical Plan: See op note Coding Level of Care Code Procedure Only Diagnoses Varicose veins of right lower extremity with inflammation I83.11 CPT Codes Details - Vascular 1: 20458 - Endovenous RF, 1st Vein ([id number])
[2024-09-13 07:40] VITALS: BMI 34.2
== END 2024-09-13 08:20 | disposition home or self-care (01) ==
LOC: HO.HVS 07:24
PROVIDERS: PCP Internal Medicine; Visit Provider Surgery Vascular Surgery
DX: I83.11 Varicose veins of right lower extremity with inflammation (principal)
CPT/HCPCS: 36475

== ENCOUNTER → 2024-09-13 07:23 | Outpatient (BNVA) | payer MEDICARE, SELFPAY | PROVIDERS: PCP Internal Medicine; Visit Provider Surgery Vascular Surgery | DX: I83.11 Varicose veins of right lower extremity with inflammation (principal) | CPT/HCPCS: 36475; J2003; J2004 ==

== ENCOUNTER 2024-09-26 09:01 | Outpatient (AMB) | payer MEDICARE, SELFPAY ==
--- NOTE | 2024-09-26 09:05 | A.OFFVIS_ITS ---
Vital Signs 09/26/24 09:08 Height 5 ft 3 in Weight 193 lb BMI 34.2 Intake Visit Reasons: 2w follow up s/p R GSV RFA Intake Note: 2 week follow up Right GSV RFA 09/13/24. Pt states leg feels okay but has some tenderness Facilities Mechanical Design Engineer Required: No Accompanied by: Self / Same As Patient Allergies No Known Allergies Allergy (Verified 09/26/24 09:11) HPI HPI 2w follow up s/p R GSV RFA: Details: The patient is a 68-year-old female presenting with post-procedural evaluation of her leg following an ablation performed two weeks prior. She reports tenderness in localized areas of the treated leg, near the puncture site, with associated redness and swelling, which is typical post-ablation. The intensity of the tenderness is expected to diminish over weeks to months. In general she reports an improvement of her leg. Now for routine postprocedure follow-up. [facility] Medical History Essential hypertension Uterine cancer Asthma Varicose vein of leg Elevated cholesterol Arthritis HTN (hypertension) Surgical History History of total right knee replacement Hx of hand surgery Hx of section History of partial hysterectomy Family History Mother Stroke Father No problems noted. Maternal Aunt Breast cancer Social History Housing: House Are you a primary healthcare consulting manager to a significant other at home: No Do you presently have visiting nurse or other home services: No Alcohol intake: current Alcohol intake frequency: holidays/special occasions only Alcohol type: wine Comment: aware of trip hazard and will remove Patient Tobacco Use Status: Former Tobacco user Tobacco use type: Cigarette Years Smoked: 5 e-Cigarette/Vaping Use: Never Used Second Hand Smoke Exposure: No service: No Current occupational status: unemployed Cognitive needs: No Hearing needs: No Vision needs: No Female Reproductive History Menstrual Age of Menarche: 17 Review of Systems Const All systems reviewed & are unremarkable except as noted in HPI and below Reports no additional complaints ENT Reports Normal hearing present Card Denies chest pain, Denies chest pain at rest, Denies chest pain with activity and Denies pedal edema Resp Denies cough GI Denies abdominal pain Musc Denies abnormal gait, Denies muscle cramps and Denies radiating pain into limb Skin/Breast Denies skin ulcer and Denies wounds Neuro Reports Normal hearing present and Denies abnormal gait Psych Reports no additional complaints Physical Exam Vital Signs: BMI result Body Mass Index 34.2 Const General: cooperative, healthy appearing and comfortable Orientation/consciousness: oriented to person, oriented to place and oriented to time HEENT Head: Yes normal to inspection Neck Neck: Yes normal visual inspection Carotids: no bruits Chest Chest palpation & inspection: normal inspection of the chest Resp Effort & Inspection: normal respiratory effort and able to speak in complete sentences Auscultation: clear to auscultation bilaterally, no crackles, no rales, no rhonchi and no wheezes Cardio Rate: regular rate Rhythm: regular rhythm Heart sounds: S1 normal heart sound present and S2 normal heart sound present Bruits: no carotid bruits Peripheral pulses: Peripheral pulses 2+ throughout GI Inspection: Yes normal to inspection Skin Wounds: no wounds Hair: normal Neuro General: oriented to person, oriented to place and oriented to time Cranial nerves: Yes CN's II-XII intact bilaterally and Yes Normal hearing present Cognition (Neuro): normal cognition Motor exam (neuro): 5/5 motor strength present throughout Extrem Other: venous exam: No significant superficial varicosities or spider telangiectasias, minimal edema General: No clubbing, No cyanosis and No edema Psych Appearance: grossly normal Mental Status: mental status grossly normal Speech and movement: Normal speech and movement present Assessment & Plan Assessment & Plan (1) Varicose veins of right lower extremity with inflammation: Comment: 09/13/2024-right great saphenous vein radiofrequency ablation Code(s): I83.11 - Varicose veins of right lower extremity with inflammation Category: Medical Plan: The patient has done extremely well with all venous treatments. Patient's may often experience postprocedure phlebitic episodes and I have discussed with the patient use of warm compresses and NSAIDS if tolerated for pain discomfort. In addition, I have discussed continued conservative measures including use of compression, leg elevation, and exercise. The patient was also given an information sheet regarding appropriate use of compression stockings and future purchases. Thank you for allowing us to care for your patient with venous disease. Coding Level of Care Code Est Pt Level 3 (66467) Diagnoses Varicose veins of right lower extremity with inflammation I83.11
[2024-09-26 09:08] VITALS: BMI 34.2
== END 2024-09-26 10:34 | disposition home or self-care (01) ==
LOC: HO.HVS 09:03
PROVIDERS: PCP Internal Medicine; Visit Provider Surgery Vascular Surgery
DX: I83.11 Varicose veins of right lower extremity with inflammation (principal)
CPT/HCPCS: 99213

== ENCOUNTER → 2024-09-26 09:01 | Outpatient (BNVA) | payer MEDICARE, SELFPAY | PROVIDERS: PCP Internal Medicine; Visit Provider Surgery Vascular Surgery | DX: I83.11 Varicose veins of right lower extremity with inflammation (principal); Z87.891 Personal history of nicotine dependence | CPT/HCPCS: 99212 ==

== ENCOUNTER 2024-11-26 08:41 | Outpatient (REF) | payer MEDICARE, SELFPAY ==
--- NOTE | ~2024-11-26 | XR_ITS ---
EXAMINATION: XR KNEE 3 VIEWS RIGHT HISTORY: M25.561 - Pain in right knee COMPARISON: Comparison is made with the prior examination dated 05/30/2024. FINDINGS: AP, lateral, and sunrise patellar views of the right knee are submitted. The patient is again noted to be status post right total knee arthroplasty. The orthopedic elements are in anatomic alignment. There is no radiographic evidence of loosening. There is no fracture or dislocation. There is no joint effusion. The soft tissues are unremarkable. XR/XR knee RT 3V IMPRESSION: Status post right total knee arthroplasty. Electronically signed by: Chaz Tomlin MD 11/26/2024 10:16 AM EDT
--- OUTSIDE RECORDS SUMMARY | 2024-11-27 08:53 | XMS_ITS | Encounter Summary ---
Author Organization [facility] Address [address] [facility] [address] [place] [phone] Phone Care Team Providers Care Adult Neurologist Name Role Phone Sergio Morales MD Primary Care Provide r Jennifer Arenas DO Primary Care Provider [phone]- [phone] Eldon Ball MD Primary Care Provider [phone]- [phone] Bette Russell MD Primary Care Provid er Encounter Details Date Type Department Care Team (Late st Contact Info) Description 10/23/2017 Procedure Pass [facility], Ct Scan - [address] [address] Social History Tobacco Use Types Packs/Day Years [...] on filedocumented in this encounter Care Teams Adult Neurologist Relationship Specialty Start Date End Date Sergio Morales MD [email or web address] PCP - General 02/06/17 Jennifer Arenas DO [address] [place] [address] [email or web address] PCP - General 04/27/18 08/27/20 Eldon Ball MD [address] [facility] [place] [address] [email or web address] PCP - General Internal Medicine 08/28/20 06/13/23 Bette Russell MD [address] [place] [id number] PCP - General Internal Medicine 06/14/23 documented as of this encounter Additional Source Comments The information contained in this document represents components of the legal health record. It is not the complete legal health record.[facility]
== END 2024-11-26 08:42 | disposition home or self-care (01) ==
LOC: HO.HOSX 08:41
PROVIDERS: Visit Provider Orthopaedic Surgery
DX: M25.561 Pain in right knee (principal); G89.29 Other chronic pain; Z96.651 Presence of right artificial knee joint; Z79.899 Other long term (current) drug therapy
CPT/HCPCS: 73562; 99212

== ENCOUNTER 2024-11-26 09:28 | Outpatient (AMB) | payer MEDICARE, SELFPAY ==
[2024-11-26 09:38] VITALS: BMI 34.2
--- NOTE | 2024-11-26 09:38 | MHC.OFFVIS ---
Vital Signs 11/26/24 09:38 Height 5 ft 3 in Weight 193 lb BMI 34.2 Intake Visit Reasons: OV R TKA w/ 05/13/24 Intake Note: Oliva is a 69 year old female who presents today as a follow up for her right TKA w/DR 05/13/24. She reports mild intermittent discomfort in her right knee. She denies any fevers or chills. She did aggravate her knee while gardening last week. She took ibuprofen which gave her very good relief. She denies any fevers or chills. Allergies No Known Allergies Allergy (Verified 11/26/24 09:42) Medication List - Last Reconciled 11/26/24 by Carlos Jordan MD acetaminophen 650 mg (2 x 325 mg) PO Q6H PRN 30 days atorvastatin 20 mg PO BEDTIME 90 days blood pressure monitor As directed losartan 50 mg PO DAILY 90 days walker Folding front wheeled walker [facility] Medical History Essential hypertension Uterine cancer Asthma Varicose vein of leg Elevated cholesterol Arthritis HTN (hypertension) Surgical History History of total right knee replacement Hx of hand surgery Hx of section History of partial hysterectomy Family History Mother Stroke Father No problems noted. Maternal Aunt Breast cancer Social History Housing: House Are you a primary critical care transport nurse to a significant other at home: No Do you presently have visiting nurse or other home services: No Alcohol intake: current Alcohol intake frequency: holidays/special occasions only Alcohol type: wine Comment: aware of trip hazard and will remove Patient Tobacco Use Status: Former Tobacco user Tobacco use type: Cigarette Years Smoked: 5 e-Cigarette/Vaping Use: Never Used Second Hand Smoke Exposure: No service: No Current occupational status: unemployed Cognitive needs: No Hearing needs: No Vision needs: No Female Reproductive History Menstrual Age of Menarche: 17 Physical Exam Vital Signs: BMI result Body Mass Index 34.2 Const Other: Well-nourished well-developed very friendly female awake alert and oriented x3 in no acute distress Extrem Other: Right knee examination shows that the surgical incision is well healed, no erythema, full active extension and flexion to 120 degrees, her patella tracks well Results Reviewed Results Reviewed: X-rays of the patient's right knee taken today show a total knee arthroplasty in good position with no signs of loosening, no acute bony abnormalities Assessment & Plan Assessment & Plan (1) Right knee pain: Code(s): M25.561 - Pain in right knee Category: Medical Qualifiers: Chronicity: chronic Qualified Code(s): M25.561 - Pain in right knee; G89.29 - Other chronic pain Plan Oliva continues to do well after undergoing right total knee replacement surgery on 05/13/2024. She will continue with her home exercise program. She does know to take antibiotics before any dental work. She will contact me prior to her annual follow-up appointment should any questions or concerns arise. Feel free to call me at any time should questions regarding her orthopedic management arise. I spent 20 minutes in reviewing the patient's records and imaging studies, seeing the patient and documenting in the medical record. Orders: Orders XR knee RT 3V Today G89.29 - Other chronic pain, M25.561 - Pain in right knee Coding Level of Care Code Est Pt Level 3 (41814) Complex EM visit Add On G2211 Diagnoses Chronic pain of right knee M25.561; G89.29 Chronicity: chronic
--- OUTSIDE RECORDS SUMMARY | 2024-11-26 09:53 | XMS_ITS | Encounter Summary ---
Author Organization [facility] Address [address] [facility] [address] [place] [id number] Phone Care Team Providers Care Wood Filler Name Role Phone Sergio Morales MD Primary Care Provide r Jennifer Arenas DO Primary Care Provider [phone]- [phone] Eldon Ball MD Primary Care Provider [phone]- [phone] Bette Russell MD Primary Care Provid er Encounter Details Date Type Department Care Team (Late st Contact Info) Description 10/23/2017 Procedure Pass [facility], Ct Scan - [address] [address] Social History Tobacco Use Types Packs/Day Years Used Date Smoking Tobacco: Never Smokeless Tobacco: Never Alcohol Use Standard Drinks/Week Comments No 0 (1 standard drink = 0.6 oz pur e alcohol) Comments Unknown Sex and Gender Information Value Date Recorded Sex Assigned at Female 10/23/2017 6:58 PM EDT Legal Sex Female 9:53 PM EDT Gender Identity Female 10/23/2017 6:58 PM EDT Sexual Orientation Straight 10/23/2017 6: 58 PM EDT documented as of this encounter Plan of Treatment Not on file documented as of this encounter Visit Diagnoses Not on filedocumented in this encounter Care Teams Wood Filler Relationship Specialty Start Date End Date Sergio Morales MD [email or web address] PCP - General 02/06/17 Jennifer Arenas DO [address] [place] [address] [email or web address] PCP - General 04/27/18 08/27/20 Eldon Ball MD [address] [facility] [place] [address] [email or web address] PCP - General Internal Medicine 08/28/20 06/13/23 Bette Russell MD [address] [place] [id number] PCP - General Internal Medicine 06/14/23 documented as of this encounter Additional Source Comments The information contained in this document represents components of the legal health record. It is not the complete legal health record.[facility]
== END 2024-11-26 10:01 | disposition home or self-care (01) ==
LOC: HO.HOS 09:29
PROVIDERS: PCP Internal Medicine; Visit Provider Orthopaedic Surgery
DX: M25.561 Pain in right knee (principal); G89.29 Other chronic pain
CPT/HCPCS: 99213; G2211

== ENCOUNTER → 2024-11-26 09:30 | Outpatient (BNV) | payer MEDICARE, SELFPAY | PROVIDERS: Visit Provider Radiology Diagnostic Radiology | DX: M25.561 Pain in right knee (principal); Z96.651 Presence of right artificial knee joint | CPT/HCPCS: 73562 ==

== ENCOUNTER 2024-12-03 09:30 | Outpatient (AMB) | payer MEDICARE, SELFPAY ==
[2024-12-03 09:32] VITALS: BP 164/60; PULSE 65; RESP 18; O2SAT 96; BMI 34.3
--- NOTE | 2024-12-03 09:32 | A.OFFPC_ITS ---
Vital Signs 12/03/24 09:32 Height 5 ft 3 in Weight 193 lb 6 oz BMI 34.3 Blood Pressure Location Lt brachial Position Sitting Respiration 18 Pulse Source Pulse Oximeter Temp Source Temporal Artery Scan Oxygen Delivery Method Room Air Intake Visit Reasons: HAMZAH G0439 Talend Developer Required: No Accompanied by: Self / Same As Patient Allergies No Known Allergies Allergy (Verified 12/03/24 09:33) Tobacco use date assessed: 12/03/24 Last assessed Fall Risk: 12/03/24 Dental Screening Dental Screen Date: 12/03/24 [facility] Medical History Essential hypertension Uterine cancer Asthma Varicose vein of leg Elevated cholesterol Arthritis HTN (hypertension) Surgical History History of total right knee replacement Hx of hand surgery Hx of section History of partial hysterectomy Family History Mother Stroke Father No problems noted. Maternal Aunt Breast cancer Social History Housing: House Are you a primary lpn care manager to a significant other at home: No Do you presently have visiting nurse or other home services: No Alcohol intake: current Alcohol intake frequency: holidays/special occasions only Alcohol type: wine Comment: aware of trip hazard and will remove Patient Tobacco Use Status: Former Tobacco user Tobacco use type: Cigarette Years Smoked: 5 e-Cigarette/Vaping Use: Never Used Second Hand Smoke Exposure: No service: No Current occupational status: unemployed Cognitive needs: No Hearing needs: No Vision needs: No Female Reproductive History Menstrual Age of Menarche: 17 Questionnaire PHQ-9 Over the last 2 weeks, how often have you been bothered by any of the following problems? 1. Little interest or pleasure in doing things: not at all 2. Feeling down, depressed, or hopeless: several days 3. Trouble falling or staying asleep, or sleeping too much: not at all 4. Feeling tired or having little energy: not at all 5. Poor appetite or overeating: not at all 6. Feeling bad about yourself - or that you are a failure or have let yourself or your family down: not at all 7. Trouble concentrating on things, such as reading the newspaper or watching television: not at all 8. Moving or speaking so slowly that other people could have noticed. Or the opposite - being so fidgety or restless that you have been moving around a lot more than usual: not at all 9. Thoughts that you would be better off or of hurting yourself in some way: not at all Total score: 1 Depression Screening Interpretation: Negative Depression Screening Done: Yes 24960 - PHQ-9 Billing: Yes Source: Developed by Drs. Chaz Mitchell, Elias Jha and colleagues, with an educational corinna from [employer]. Thrive Questionnaire Date Thrive assessed: 12/03/24 AUDIT C Alcohol Use Questionnaire (AUDIT-C) 1. How often do you have a drink containing alcohol?: Never Total Score: 0 Score Reviewed/Action Taken: No EUNICE-7 AMB Questionnaire EUNICE-7 Date EUNICE - 7 assessed: 12/03/24 Feeling nervous, anxious, or on edge: 0 = Not at all Not being able to stop or control worryin = Not at all Worrying too much about different things: 0 = Not at all Trouble relaxin = Not at all Being so restless that it is hard to sit still: 0 = Not at all Becoming easily annoyed or irritable: 0 = Not at all Feeling afraid as if something awful might happen: 0 = Not at all Total EUNICE-7 score (0-4 normal; 5-9 mild; 10-14 moderate; 15-21 severe): 0 Source: Developed by Drs. Chaz Mitchell, Elias Jha and colleagues, with an educational corinna from [employer]. EUNICE-7 Assessment Billing EUNICE-7 Assessment Tool: EUNICE-7 Assessment 17899 Physical exam (Primary Care) Tobacco/Smoking Status: Tobacco use Status Tobacco use date assessed 04/30/24 07/30/24 08:24 Patient Tobacco Use Status Former Tobacco user 07/30/24 08:24 Tobacco use type Cigarette 07/30/24 08:24 e-Cigarette/Vaping Use Never Used 07/30/24 08:24 Depression Screening Interpretation: Negative Thrive Assessment: Date of Thrive Assessment Date Thrive assessed 05/14/24 09/05/24 09:29 Coding Additional Codes PHQ-9 - 00001 - PHQ-9 Billing: Yes ([id number]) EUNICE-7 Assessment Billing - EUNICE-7 Assessment Tool: EUNICE-7 Assessment 41427 ([id number])
--- NOTE | 2024-12-03 09:36 | A.OFFVIS_ITS ---
Intake Vital Signs 12/03/24 09:32 12/03/24 09:38 Height 5 ft 3 in Weight 193 lb 6 oz BMI 34.3 34.3 BP 164/60 H Blood Pressure Location Lt brachial Position Sitting Respiration 18 Pulse 65 Pulse Source Pulse Oximeter Temp Source Temporal Artery Scan Pulse Oximetry (%) 96 Oxygen Delivery Method Room Air Intake Visit Reasons: SWLaura G0439 Electric Brain Wave Equipment Mechanic Required: No Accompanied by: Self / Same As Patient Allergies No Known Allergies Allergy (Verified 12/03/24 09:52) Medication List - Last Reconciled 12/03/24 by Bette Casillas MD acetaminophen 650 mg (2 x 325 mg) PO Q6H PRN 30 days atorvastatin 20 mg PO BEDTIME 90 days blood pressure monitor As directed losartan 50 mg PO DAILY 90 days walker Folding front wheeled walker HPI HPI Comments History of Present Illness Details Ppp handed to patient. [place] of care reviewed and updated. The patient is a 69-year-old female presenting for a Medicare wellness visit. She received a pneumonia vaccine at the age of 66 and a Tdap vaccine in 2023, with the next Tdap vaccine due in 2033. Her bone density test conducted in November 2023 was normal, and her mammogram from November of the previous year was also normal. The patient has an upcoming appointment for a mammogram next month. Her last Pap smear was conducted last year, with HPV not detected. She discussed colon cancer screening options, including Cologuard and GPT tests. [facility] Medical History (Updated 12/03/24 @ 11:26 by Bette Casillas MD) Essential hypertension Uterine cancer Asthma Varicose vein of leg Elevated cholesterol Arthritis HTN (hypertension) Surgical History History of total right knee replacement Hx of hand surgery Hx of section History of partial hysterectomy Family History Mother Stroke Father No problems noted. Maternal Aunt Breast cancer Social History Housing: House Are you a primary career counselor to a significant other at home: No Do you presently have visiting nurse or other home services: No Alcohol intake: current Alcohol intake frequency: holidays/special occasions only Alcohol type: wine Comment: aware of trip hazard and will remove Patient Tobacco Use Status: Former Tobacco user Tobacco use type: Cigarette Years Smoked: 5 e-Cigarette/Vaping Use: Never Used Second Hand Smoke Exposure: No service: No Current occupational status: unemployed Cognitive needs: No Hearing needs: No Vision needs: No Female Reproductive History Menstrual Age of Menarche: 17 Questionnaire Medicare Wellness Checkup What [age]?: [age] What gender do you identify with?: female During the past 4 weeks, how much have you been bothered by emotional problems such as feeling anxious, depressed, irritable, sad or downhearted, and blue?: moderately During the past 4 weeks, has your physical & emotional health limited your social activities with family, friends, neighbors, or groups?: not at all During the past 4 weeks, how much bodily pain have you generally had?: mild pain During the past 4 weeks, was someone available to help you if you needed & wanted help?: no, not at all During the past 4 weeks, what was the hardest physical activity you could do for at least 2 minutes?: moderate Can you get to places out of walking distance without help? (For eg., can you travel alone on buses, taxis or drive your car?): Yes Can you go shopping for groceries or clothes without someone's help?: Yes Can you prepare your own meals?: Yes Can you do your housework without help?: Yes Because of any health problems, do you need the help of another person with your personal care needs such as eating, bathing, dressing or getting around the house?: Yes Can you handle your own money without help?: Yes During the past 4 weeks, how would you rate your health in general?: good During the past 4 weeks how have things been going for you?: good & bad parts about equal Are you having difficulties driving your car?: no Do you always fasten your seat belt when you are in a car?: yes, usually During past 4 weeks, have you been bothered by the following: never: Falling or dizzy when standing up, Sexual problems?, Trouble eating well?, Teeth or denture problems? and Problems using the telephone? and sometimes: Tiredness or fatigue? Have you fallen 2 or more times in the past year?: No Are you afraid of falling?: No Are you a smoker?: no During the past 4 weeks, how many drinks of wine, beer, or other alcoholic beverages did you have?: 1 drink or less per week Do you exercise for about 20 minutes 3 or more times a week?: yes, all the time Have you been given information to help with the following?: yes: Keeping track of your medications? and no: Hazards in your house that might hurt you? How often do you have trouble taking medicines the way you have been told to take them?: I always take medicine as prescribed How confident are you that you can control & manage most of your health problems?: very confident What is your race?: White Mini Mental State Exam (MMSE) Orientation What is the (year) (season) (date) (day) (month)?: year, season, date, day and month Where are we (state) (county) (town or city) (hospital) (floor)?: state, county, town or city, hospital/clinic and floor Registration Name of 3 unrelated objects clearly and slowly, then ask patient to repeat all 3 of them. (1st repeat determines score. Make sure they can repeat all three): object 1, object 2 and object 3 Attention & Calculation (CHOOSE ONE) Spell WORLD backwards (DLROW): 5 letters Recall Ask patient to repeat the 3 items from question #3.: object 1, object 2 and object 3 Language Show patient a wristwatch & ask what it is. Repeat for pencil.: watch and pencil Ask the patient to repeat the phrase 'No ifs, ands, or buts' after you.: correct Ask the patient to 'take a piece of paper with their right hand' 'fold paper in half' 'place paper on floor': take paper in right hand, fold paper in half and place paper on floor Print the sentence 'CLOSE YOUR EYES' on a piece. If patient actually closes eyes then score.: followed written direction Give patient a blank piece of paper & ask to write a sentence. Score if it contains a noun & verb.: sentence contains subject and verb Ask patient to copy figure of intersecting pentagons exactly. Score if all 10 angles & 2 intersects are included.: all 10 angles present & 2 are intersected Score Score: 30 Activity of Daily Living Bathing - sponge bath, tub bath or shower: receives no assistance (gets in/out by self, if usual bathing means Dressing - getting clothes from closets & drawers, including inner/outer garments & fasteners.: gets clothes & gets completely dressed without help Toileting - going to the 'toilet room' for urine/bowel elimination & cleaning self/arranging clothes: goes to toilet room, cleans self, arranges clothes without help Transfer: moves in & out of bed and chair without help (may use support object) Continence: controls urination/bowel movements completely by self Feeding: feeds self without help Total Score: 0 Information obtained from: patient Using telephone: independent Traveling: independent Shopping: independent Preparing meals: independent Housework: independent Taking medicine: independent Managing money: independent PHQ-9 Over the last 2 weeks, how often have you been bothered by any of the following problems? 1. Little interest or pleasure in doing things: nearly every day 2. Feeling down, depressed, or hopeless: several days 3. Trouble falling or staying asleep, or sleeping too much: several days 4. Feeling tired or having little energy: nearly every day 5. Poor appetite or overeating: more than half the days 6. Feeling bad about yourself - or that you are a failure or have let yourself or your family down: not at all 7. Trouble concentrating on things, such as reading the newspaper or watching television: not at all 8. Moving or speaking so slowly that other people could have noticed. Or the opposite - being so fidgety or restless that you have been moving around a lot more than usual: not at all 9. Thoughts that you would be better off or of hurting yourself in some way: not at all Total score: 10 Depression Screening Interpretation: Positive Depression Screening Follow-up: Existing condition and Follow-up Visit Requested Depression Screening Done: Yes 57096 - PHQ-9 Billing: Yes Source: Developed by Drs. Chaz Mitchell, Tina Tobin, Elias Chen and colleagues, with an educational corinna from [employer]. Review of Systems Const All systems reviewed & are unremarkable except as noted in HPI and below Card Denies chest pain at rest, Denies chest pain with activity, Denies edema, Denies irregular heart rhythm, Denies claudication, Denies dyspnea, Denies dyspnea on exertion, Denies orthopnea, Denies paroxysmal nocturnal dyspnea and Denies slow heart rate Resp Denies cough, Denies dyspnea and Denies dyspnea on exertion GI Denies abdominal pain, Denies change in bowel habits, Denies excessive flatus, Denies nausea and Denies vomiting Physical Exam Vital Signs: Last Vital Signs Pulse 65 12/03/24 09:32 Resp 18 12/03/24 09:32 BP 164/60 H 12/03/24 09:32 Pulse Ox 96 12/03/24 09:32 Oxygen Delivery Method Room Air 12/03/24 09:32 BMI result Body Mass Index 34.3 Const Orientation/consciousness: patient oriented x3 Resp Effort & Inspection: normal respiratory effort Auscultation: clear to auscultation bilaterally Cardio Jugular venous distension: no JVD Rate: regular rate Rhythm: regular rhythm Heart sounds: S1 normal heart sound present and S2 normal heart sound present Neuro General: patient oriented x3 and no focal motor deficits Romberg Test: Negative Extrem General: Yes full ROM Assessment & Plan Assessment & Plan (1) Encounter for Medicare annual wellness exam: Code(s): Z00.00 - Encounter for general adult medical examination without abnormal findings Plan The patient will continue with her preventative care measures, including scheduling her next Tdap vaccination for 2033. She is advised to attend her upcoming mammogram appointment next month to ensure continued monitoring of breast health. Colon cancer screening options were discussed, and she is encouraged to consider Cologuard or GPT tests as part of her routine health maintenance. Orders: Orders Complete Blood Count Auto Diff Today D64.9 - Anemia, unspecified Lipid Panel Today E78.5 - Hyperlipidemia, unspecified IRON PROFILE Today D64.9 - Anemia, unspecified Vitamin D 25-OH Total Today E55.9 - Vitamin D deficiency, unspecified Comprehensive [place]. Panel Fast Today I10 - Essential (primary) hypertension Quality Reporting (2019) Depression/Bipolar (159/160/161/177) PHQ-9: Total score: 10 Coding Level of Care Code Medicare Subsequent (G0439) Diagnoses Encounter for Medicare annual wellness exam Z00.00 CPT Codes Advance Care Planning - Time spent: 1-15 minutes, on File ([id number]) Additional Codes PHQ-9 - 13786 - PHQ-9 Billing: Yes ([id number]) Time Spent (min) 34 Advance Care Planning Advance Care Planning discussion: Exists, not on file Date of discussion: 12/03/24 Who was present: patient and me Forms completed: Health Care Proxy Time spent: 1-15 minutes, on File Actual minutes spent: 1
[2024-12-03 09:38] VITALS: BMI 34.3
--- OUTSIDE RECORDS SUMMARY | 2024-12-03 10:09 | XMS_ITS | Encounter Summary ---
Author Organization [facility] Address [address] [place] [id number] Phone Care Team Providers Care Veneer Taping Machine Offbearer Name Role Phone Sergio Morales MD Primary Care Provide r Jennifer Arenas DO Primary Care Provider [phone]- [phone] Eldon Ball MD Primary Care Provider [phone]- [phone] Bette Russell MD Primary Care Provid er Encounter Details Date Type Department Care Team (Late st Contact Info) Description 10/23/2017 Procedure Pass [facility], Ct Scan - [address] [address] Social History Tobacco Use Types Packs/Day Years [...] on filedocumented in this encounter Care Teams Veneer Taping Machine Offbearer Relationship Specialty Start Date End Date Sergio Morales MD [email or web address] PCP - General 02/06/17 Jennifer Arenas DO [address] [place] [address] [email or web address] PCP - General 04/27/18 08/27/20 Eldon Ball MD [address] [facility] [place] [address] [email or web address] PCP - General Internal Medicine 08/28/20 06/13/23 Bette Russell MD [address] [place] [id number] PCP - General Internal Medicine 06/14/23 documented as of this encounter Additional Source Comments The information contained in this document represents components of the legal health record. It is not the complete legal health record.[facility]
== END 2024-12-03 10:20 | disposition home or self-care (01) ==
LOC: HO.HMCH 09:30
PROVIDERS: PCP Internal Medicine; Visit Provider Internal Medicine
DX: Z00.00 Encounter for general adult medical examination without abnormal findings (principal)

== ENCOUNTER 2024-12-03 09:30 | Outpatient (REF) | payer MEDICARE, SELFPAY ==
[2024-12-03 10:43] LABS: MANUAL DIFF FLAG NO
[2024-12-03 11:05] LABS: Hematocrit 42.7 % (37.0-47.0); Hemoglobin 13.3 g/dl (12.0-16.0); Imm Gran Abs Auto 0.01 X10*3/uL (0.00-0.03); Imm Gran Pct Auto 0.2 % (0.0-0.4); Lymphocytes Absolute Auto 1.3 X10*3/uL (1.2-4.9); Mean Corpuscular HGB Conc 31.1 g/dl (31.0-35.0); Mean Corpuscular Hemoglobin 27.5 pg (27.0-33.0); Mean Corpuscular Volume 88.2 fL (80.0-98.0); NRBC Abs Auto 0.000 X10*3/uL (0.0-0.012); NRBC Pct Auto 0.0 /100WBC (0.0-0.2); Platelet Count 253 X10*3/uL (160-400); Red Blood Count 4.84 X10*6/uL (4.20-5.50); White Blood Count 5.3 X10*3/uL (4.8-10.8)
[2024-12-03 11:57] LABS: Alanine Aminotransferase 108 U/L (0-31); Albumin Level 4.4 g/dL (3.5-5.0); Alkaline Phosphatase 85 U/L (39-117); Anion Gap 12 (12-20); Aspartate Amino Transferase 37 U/L (5-31); Blood Urea Nitrogen 12 mg/dL (9-16); Calcium 9.4 mg/dL (8.4-10.2); Carbon Dioxide 30 mmol/L (22-29); Chloride 106 mmol/L (96-108); Cholesterol 163 mg/dL (<200); Estimated Glomerular Filt Rate > 60; Iron 67 mcg/dL (30-160); Percent Iron Saturation 21 % (15-50); Potassium 5.2 mmol/L (3.3-5.1); Sodium 143 mmol/L (135-145); Total Iron Binding Capacity 322 mcg/dL (228-428); Total Protein 6.8 g/dL (6.5-8.0); Triglycerides 61 mg/dL (<150); Unsaturated Iron Binding 255 ug/dL
[2024-12-03 12:58] LABS: HDL Cholesterol 65 mg/dL (>40)
== END 2024-12-03 09:31 | disposition home or self-care (01) ==
LOC: HO.LAB 09:30
PROVIDERS: PCP Internal Medicine; Visit Provider Internal Medicine
DX: Z00.00 Encounter for general adult medical examination without abnormal findings (principal); E78.5 Hyperlipidemia, unspecified; I10 Essential (primary) hypertension; D64.9 Anemia, unspecified; E55.9 Vitamin D deficiency, unspecified
CPT/HCPCS: 36415; 80053; 80061; 82306; 83540; 85025; 96127

== ENCOUNTER 2025-01-04 08:04 | Outpatient (REF) | payer MEDICARE, SELFPAY ==
--- NOTE | ~2025-01-04 | MM_ITS ---
EXAMINATION: MM SCREENING DIGITAL BREAST TOMOSYNTHESIS, BILATERAL CLINICAL INFORMATION: Screening. Asymptomatic. COMPARISON: Mammography: Comparison is made with available priors TECHNIQUE: Digital breast mammography with tomosynthesis is performed in both the craniocaudal and mediolateral oblique views along with computer-aided detection (CAD). FINDINGS: There are scattered areas of fibroglandular density (ACR BI-RADS breast composition Category b). There are no significant masses, abnormal calcifications, or other abnormalities. MM/MM tomosynthesis screening BI IMPRESSION: No mammographic evidence of malignancy. ASSESSMENT: BI-RADS BI-RADS 1 - Negative RECOMMENDATION: Routine annual mammography screening. 1 year F/U This examination should not preclude the clinical evaluation of a suspicious palpable abnormality. This patient's information was entered into a reminder system with a target due date for their next mammogram. Electronically signed by: Talita Crane DO 01/07/2025 04:26 PM EDT
--- OUTSIDE RECORDS SUMMARY | 2025-01-04 08:06 | XMS_ITS | Encounter Summary ---
Author Organization [facility] Address [address] [place] [phone] Phone Care Team Providers Care Carboy Filler Name Role Phone Sergio Morales MD Primary Care Provide r Jennifer Arenas DO Primary Care Provider [phone]- [phone] Eldon Ball MD Primary Care Provider [phone]- [phone] Bette Russell MD Primary Care Provid er Encounter Details Date Type Department Care Team (Late st Contact Info) Description 10/23/2017 Procedure Pass [facility], Ct Scan - [address] [address] Social History Tobacco Use Types Packs/Day Years [...] on filedocumented in this encounter Care Teams Carboy Filler Relationship Specialty Start Date End Date Sergio Morales MD [email or web address] PCP - General 02/06/17 Jennifer Arenas DO [address] [place] [address] [email or web address] PCP - General 04/27/18 08/27/20 Eldon Ball MD [address] [facility] [place] [address] [email or web address] PCP - General Internal Medicine 08/28/20 06/13/23 Bette Russell MD [address] [place] [id number] PCP - General Internal Medicine 06/14/23 documented as of this encounter Additional Source Comments The information contained in this document represents components of the legal health record. It is not the complete legal health record.[facility]
--- OUTSIDE RECORDS SUMMARY | 2025-01-04 08:06 | XMS_ITS | Clinical Summary ---
Author Organization [facility] Address [address] [facility] [address] [place] [phone] Phone Care Team Providers Care Supervisor Bleach Plant Name Role Phone Bette Russell MD Primary Care Provid er Allergies No known active allergies Medications atorvastatin (LIPITOR) 20 MG tablet Take 20 mg by mouth nightly at bedtime. at bedtime. 3 Active losartan (COZAAR) 25 MG tablet Take 50 mg by mouth every morning. 3 Active acetaminophen (TYLENOL) 325 mg tablet Take 325 mg by mouth continuous prn. Active Active Problems Problem Noted Date Diagnosed Date Allergic rhinitis due to pollen 10/26/2017 Asthma 10/26/2017 Immunizations Immunization Administration Dates Next Due INFLUENZA, SPLIT VIRUS, TRIVALENT W/ PRESERVATIV E IM 01/17/2017,01/25/2016 Influenza Quadrivalent w/ Preservative IM 2017 Pneumococcal polysaccharide PPSV23 01/01/2018 Tdap 01/25/2016 Zoster live 01/17/2017 Social History Tobacco Use Types Packs/Day Years Used Date Smoking Tobacco: Never Smokeless Tobacco: Never Tobacco Cessation:Counseling Given: Not Answered Alcohol Use Standard Drinks/Week Comments No 0 (1 standard drink = 0.6 oz pur e alcohol) Education Answer Date Recorded Are you interested in more education? Not on mustapha e 08/19/2022 Are you concerned about learning? Not on file 08/19/2022 No 08/19/2022 No 08/19/2022 Digital Access Answer Date Recorded No 09/17/2022 No 09/17/2022 Reliable internet access at home? Not on file 09/17/2022 Device with a working camera? Not on file Comments Unknown Sex and Gender Information Value Date Recorded Sex Assigned at Female 10/23/2017 6:58 PM EDT Legal Sex Female 9:53 PM EDT Gender Identity Female 10/23/2017 6:58 PM EDT Sexual Orientation Straight 10/23/2017 6: 58 PM EDT Last Filed Vital Signs Vital Sign Reading Time Taken Comments Blood Pressure 143/68 08/20/2024 3:02 PM EDT Pulse 64 08/20/2024 3:02 PM EDT Temperature 36.7 C (98 F) 08/20/2024 3:02 PM EDT Respiratory Rate 18 08/20/2024 3:02 PM EDT Oxygen Saturation 98% 08/20/2024 3:02 PM EDT Inhaled Oxygen Concentration - - Weight 87.5 kg (193 lb) 08/20/2024 3:02 PM EDT Height 152.4 cm (5') 08/20/2024 3:02 PM EDT Body Mass Index 37.69 08/20/2024 3:02 PM EDT Plan of Treatment Health Maintenance Due Date Last Done Comments LIPID PANEL 1956 DEPRESSION SCREENING 1968 HEPATITIS C SCREENING 1974 MAMMOGRAM 1996 COLOGUARD 2001 COLONOSCOPY 2001 COLORECTAL CANCER SCREENING 2001 FIT TEST 2001 FOBT 2001 SIGMOIDOSCOPY 2001 VIRTUAL COLONOSCOPY 2001 RSV VACCINE (1 - Risk 60-74 years 1-dose series) 2016 CREATININE LEVEL 10/23/2018 10/23/2017 POTASSIUM LEVEL 10/23/2018 10/23/2017 SCREENING FOR DIABETES 10/23/2020 10/23/2017 OSTEOPOROSIS SCREENING INITIAL (ONE-TIME) 2021 INFLUENZA VACCINE (#1) 2024 , 03/22/2023, 02/26/2022, Additional history exists COVID-19 VACCINE ( season) 2024 Adult Td,Tdap Booster 02/05/2034 02/06/2024 , 12/19/2019, 01/25/2016 ZOSTER VACCINES Completed 06/26/2020, 07/2020, 01/17/2017 PNEUMOCOCCAL VACCINES (50+ years) Completed 03/14/2022, 01/01/2018 SMOKING STATUS SCREENING (Once After 26 Yrs) Completed 08/20/2024 HEPATITIS A VACCINES Aged Out No long er eligible based on patient's age to complete this topic HIB VACCINES Aged Out No longer eligi ble based on patient's age to complete this topic MENINGOCOCCAL VACCINES (ACWY) Aged Out No longer eligible based on patient's age to complete this topic MENINGOCOCCAL VACCINES (B) Aged Out N o longer eligible based on patient's age to complete this topic Medical Devices Not on file Procedures Procedure Name Priority Date/Time Associated Diagnosis Comments BASIC METABOLIC PANEL STAT 10/23/2017 7:16 PM EDT from Last 3 Months or Most Recently Relevant to Health Maintenance Results * (ABNORMAL) Basic metabolic panel (10/23/2017 7:16 PM EDT) SODIUM 137 133 - 146 mmol/L [facility] CHLORIDE 100 96 - 108 mmol/L [facility] POTASSIUM 4.7 3.3 - 5.1 mmol/L [facility] CO2 25 21 - 35 mmol/L [facility] BUN 11 6 - 19 mg/dL [facility] CREATININE 0.80 0.5 - 1.5 mg/dL [facility] GLUCOSE 110(H) 70 - 99 mg/dL [facility] CALCIUM 10.0 8.4 - 10.3 mg/dL [facility] EGFR 80 >59 mL/min/1.7 3m2 [facility] Comment:If patient is black, multiply result by 1.159. Estimated glomerular filtration rate calculated using the CKD-EPI equation. ANION GAP 17 10 - 20 mmol/L [facility] Blood 10/23/2017 7:16 PM EDT 10/23/2017 7:25 PM EDT us Fang Parrish MD LAB BLOOD ORDERABLES Final Result [address] [id number] from Last 3 Months or Most Recently Relevant to Health Maintenance Insurance [employer] MEDEX SUPPLEMENT MEDICARE PART A & B [employer] MEDEX SUPPLEMENT MEDICARE PART A & B [employer] SU[employer] MEDEX SUPPLEMENT [employer] MEDEX SUPPLEMENT MEDICARE PART A & B [employer] SU[employer]MENT [employer] MEDEX SUPPLEMENT MEDICARE PART A & B [employer] MEDEX SUPPLEMENT MEDICARE PART A & B [employer] MEDEX SUPPLEMENT MEDICARE PART A & B Care Teams Supervisor [employer] Relationship Specialty Start Date End Date Bette Russell MD [address] [place] [address] PCP - General Internal Medicine 06/14/23 Additional Source Comments The information contained in this document represents components of the legal health record. It is not the complete legal health record.[facility]
== END 2025-01-04 08:05 | disposition home or self-care (01) ==
LOC: HO.MAMMO 08:04
PROVIDERS: PCP Internal Medicine; Visit Provider Internal Medicine
DX: Z12.31 Encounter for screening mammogram for malignant neoplasm of breast (principal)
CPT/HCPCS: 77063; 77067

== ENCOUNTER → 2025-01-04 08:15 | Outpatient (BNV) | payer MEDICARE, SELFPAY | PROVIDERS: PCP Internal Medicine; Visit Provider Internal Medicine | DX: Z12.31 Encounter for screening mammogram for malignant neoplasm of breast (principal) | CPT/HCPCS: 77063; 77067 ==

== ENCOUNTER 2025-02-07 07:48 | Outpatient (REF) | payer MEDICARE, SELFPAY ==
--- NOTE | ~2025-02-07 | US_ITS ---
EXAMINATION: US ABDOMEN LIMITED WITH LIVER ELASTOGRAPHY HISTORY: R74.01 - Elevation of levels of liver transaminase levels TECHNIQUE: Real-time grayscale ultrasound imaging of the right upper quadrant was performed and images were reviewed. COMPARISON: There are no prior studies available for comparison. FINDINGS: Liver: The right lobe of the liver measures 15.5 cm in size. The left lobe of the liver measures 10.3 cm in size. The liver demonstrates normal homogeneous lightly increased echotexture. No focal mass or intrahepatic biliary ductal dilatation is identified. There is normal hepatopedal flow in the portal vein. Ultrasound elastography of the liver was performed with 10 separate measurements of the liver parenchyma with the patient in the supine position. Measurements were obtained approximately 2 cm below Mark's capsule and perpendicular to the capsule. The median shear wave velocity is 1.69 m/s. The interquartile range/median (IQR/median) is 0.2. Gallbladder and biliary tree: There is a large gallstone in the gallbladder fundus measuring 3.5 cm in length. No gallbladder wall thickening, or pericholecystic fluid. There is no sonographic Max sign. The common bile duct is normal in caliber measuring 0.5 mm. Right Kidney: The right kidney measures 10.5 cm in length. The right kidney is unremarkable, without evidence of masses, hydronephrosis, or calculi. Pancreas: The pancreatic head, neck, and body are unremarkable. The pancreatic tail is obscured by bowel gas. Abdominal aorta and inferior vena cava: The visualized portions of the abdominal aorta and inferior vena cava are normal in caliber. There is no free fluid in the right upper quadrant. US/US abdomen hollins w elastography IMPRESSION: Slightly echogenic liver suggestive of hepatocellular disease. This most commonly represents fatty infiltration. Large gallstone in the gallbladder measuring up to 3.5 cm. The median shear wave velocity in the liver is 1.69 m/s, corresponding to a median liver stiffness of 8.5 kPa. The IQR/median value is 0.2. This is indicative of a quality data set. Findings are indicative of borderline elevated liver stiffness. REFERENCE: Society of Radiologists in Ultrasound Liver Stiffness Thresholds (2020): LIVER STIFFNESS THRESHOLDS: *Shear wave velocity less than 1.3 m/s (Liver Stiffness equal or less than 5 kPa): High probability of being normal. *Shear wave velocity less than 1.7 m/s (Liver Stiffness less than 9 kPa): In the absence of other known clinical signs, rules out compensated advanced chronic liver disease. *Shear wave velocity between 1.7-2.1 m/s (Liver Stiffness 9-13 kPa): Suggestive of compensated advanced chronic liver disease but need further test for confirmation. *Shear wave velocity between 2.1-2.4 m/s (Liver Stiffness 13-17 kPa): Rules in compensated advanced chronic liver disease. *Shear wave velocity greater than 2.4 m/s (Liver Stiffness over 17 kPa): Suggestive of clinically significant portal hypertension. OTHER CONSIDERATIONS: The stage of liver fibrosis may be overestimated in the setting of acute hepatitis, liver inflammation, elevated liver function tests, hepatic vascular congestion, obstructive cholestasis, non-fasting state, and infiltrative diseases such as amyloidosis and lymphoma. In some patients with NAFLD, the liver stiffness thresholds for compensated advanced chronic liver disease may be lower. In causes other than viral hepatitis and NAFLD, liver stiffness thresholds are not well established. Electronically signed by: Zandra Davenport MD 02/07/2025 09:07 AM EDT
--- OUTSIDE RECORDS SUMMARY | 2025-02-07 07:50 | XMS_ITS | Clinical Summary ---
Author Organization [facility] Address [address] [facility] [address] [place] [phone] Phone Care Team Providers Care Lead Security Officer Name Role Phone Bette Russell MD Primary [...] COLONOSCOPY 2001 RSV VACCINE (1 - Risk 50-74 years 1-dose series) 2006 CREATININE LEVEL 10/23/2018 10/23/2017 POTASSIUM LEVEL 10/23/2018 10/23/2017 SCREENING FOR DIABETES 10/23/2020 10/23/2017 OSTEOPOROSIS SCREENING INITIAL (ONE-TIME) 2021 INFLUENZA VACCINE (#1) 2024 , 03/22/2023, 02/26/2022, Additional history exists COVID-19 VACCINE ( - season) 2024 Adult Td,Tdap Booster 02/05/2034 02/06/2024 [...] EDT) SODIUM 137 133 - 146 mmol/L [facility] CHLORIDE 100 96 - 108 mmol/L [facility] POTASSIUM 4.7 3.3 - 5.1 mmol/L [facility] CO2 25 21 - 35 mmol/L [facility] BUN 11 6 - 19 mg/dL [facility] CREATININE 0.80 0.5 - 1.5 mg/dL [facility] GLUCOSE 110(H) 70 - 99 mg/dL [facility] CALCIUM 10.0 8.4 - 10.3 mg/dL [facility] EGFR 80 >59 mL/min/1.[address] [facility] Comment:If patient is black, multiply result by 1.159. Estimated glomerular filtration rate calculated using the CKD-EPI equation. ANION GAP 17 10 - 20 mmol/L [facility] Blood 10/23/2017 7:16 PM EDT 10/23/2017 7:25 PM EDT us Fang Parrish MD LAB BLOOD ORDERABLES Final Result [address] [address] from Last 3 Months or Most Recently Relevant to Health Maintenance Insurance [employer] MEDEX SUPPLEMENT MEDICARE PART A & B [employer] SUPPLEMENT MEDICARE PART A & B [employer] SUPPLEMENT [employer] SUPPLEMENT MEDICARE PART A & B [employer] SU[employer] SUPPLEMENT MEDICARE PART A & B [employer] SU[employer] MEDICARE PART A & B [employer] MEDICARE PART A & B Care Teams Lead Security Officer Relationship Specialty Start Date End Date Bette Russell MD [address] [place] [address] PCP - General Internal Medicine 06/14/23 Additional Source Comments The information contained in this document represents components of the legal health record. It is not the complete legal health record.[facility]
--- OUTSIDE RECORDS SUMMARY | 2025-02-07 07:50 | XMS_ITS | Encounter Summary ---
Author Organization [facility] Address [address] [facility] [address] [place] [phone] Phone Care Team Providers Care Corporate Communications Manager Name Role Phone Sergio Morales MD Primary Care Provide r Jennifer Arenas DO Primary Care Provider [phone] Eldon Ball MD Primary Care Provider [phone] Bette Russell MD Primary Care Provid er Encounter Details Date Type Department Care Team (Late st Contact Info) Description 10/23/2017 Procedure Pass [facility], Ct Scan - [address] [address] Social History Tobacco Use Types Packs/Day Years [...] on filedocumented in this encounter Care Teams Corporate Communications Manager Relationship Specialty Start Date End Date Sergio Morales MD [email or web address] PCP - General 02/06/17 Jennifer Arenas DO [address] [place] [address] [email or web address] PCP - General 04/27/18 08/27/20 Eldon Ball MD [address] [facility] [place] [address] [email or web address] PCP - General Internal Medicine 08/28/20 06/13/23 Bette Russell MD [address] [place] [id number] PCP - General Internal Medicine 06/14/23 documented as of this encounter Additional Source Comments The information contained in this document represents components of the legal health record. It is not the complete legal health record.[facility]
== END 2025-02-07 07:49 | disposition home or self-care (01) ==
LOC: HO.US 07:48
PROVIDERS: PCP Internal Medicine; Visit Provider Internal Medicine
DX: R74.01 Elevation of levels of liver transaminase levels (principal); Z23 Encounter for immunization
CPT/HCPCS: 76705; 76981; 90471; 90656

== ENCOUNTER → 2025-02-07 07:51 | Outpatient (BNV) | payer MEDICARE, SELFPAY | PROVIDERS: PCP Internal Medicine; Visit Provider Radiology Diagnostic Radiology | DX: K80.20 Calculus of gallbladder without cholecystitis without obstruction (principal) | CPT/HCPCS: 76705 ==

== ENCOUNTER 2025-02-07 08:56 | Outpatient (AMB) | payer MEDICARE, SELFPAY ==
--- NOTE | 2025-02-07 08:58 | AM.OFFVISNUR ---
Intake Visit Reasons: flu shot Allergies No Known Allergies Allergy (Verified 12/03/24 09:52) Assessment & Plan Assessment & Plan Orders: Orders Influenza [id number] Immunization Today Z23 - Encounter for immunization Medications: New Fluarix (PF) (flu vac ts (6mos up)-PF) 0.5 mL IM ONCE 0.5 mL 0RF NS Z23 - Encounter for immunization Coding
--- NOTE | 2025-02-07 09:35 | AM.OFFVISNUR ---
Intake Visit Reasons: flu shot Allergies No Known Allergies Allergy (Verified 12/03/24 09:52) Assessment & Plan Assessment & Plan Orders: Orders Influenza [id number] Immunization Today Z23 - Encounter for immunization Medications: New Fluarix (PF) (flu vac ts (6mos up)-PF) 0.5 mL IM ONCE 0.5 mL 0RF NS Z23 - Encounter for immunization Coding
== END 2025-02-07 10:17 | disposition home or self-care (01) ==
LOC: HO.HMCH 08:56
PROVIDERS: PCP Internal Medicine; Visit Provider Internal Medicine
DX: Z23 Encounter for immunization (principal)

== ENCOUNTER 2025-03-28 10:20 | Outpatient (AMB) | payer MEDICARE, SELFPAY ==
--- NOTE | 2025-03-28 10:22 | MHC.OFFVIS ---
Vital Signs 03/28/25 10:32 Height 5 ft 3 in Weight 196 lb BMI 34.7 Respiration 16 Intake Visit Reasons: Calculus of gallbladder Intake Note: Patient is seen in office for evaluation of the gallbladder. Pt c/o: incidental finding, per pt does not have any symptoms Imagin02/07/25 Accompanied by: Self / Same As Patient Allergies No Known Allergies Allergy (Verified 03/28/25 10:29) Medication List - Last Reconciled 03/28/25 by Vikash Calles MD acetaminophen 650 mg (2 x 325 mg) PO Q6H PRN 30 days atorvastatin 20 mg PO BEDTIME 90 days losartan 50 mg PO DAILY 90 days HPI Comments Details: 69-year-old female presenting for surgical consultation regarding a gallstone noted on a recent ultrasound of the abdomen. She was noted to have elevated liver function tests including an AST of 379 and ALT of 1089. T bili and alkaline phosphatase were both normal. Subsequent ultrasound with liver elastography revealed a slightly echogenic liver suggesting hepatocellular disease felt to possibly be due to fatty infiltration. A large gallstone was noted in the fundus of the gallbladder measuring 3.5 cm in length. No gallbladder wall thickening, pericholecystic fluid, common bile duct dilatation, or sonographic Max sign was identified. She denies a history of abdominal pain but does have a history of back pain following a fall. She denies nausea, vomiting, fever, chills. She denies a history of fatty food intolerance. She presents today to discuss further management of this gallstone. [facility] Medical History Essential hypertension Uterine cancer Asthma Varicose vein of leg Elevated cholesterol Arthritis HTN (hypertension) Surgical History History of total right knee replacement Hx of hand surgery Hx of section History of partial hysterectomy Family History Mother Stroke Father No problems noted. Maternal Aunt Breast cancer Social History Housing: House Are you a primary direct care worker to a significant other at home: No Do you presently have visiting nurse or other home services: No Alcohol intake: current Alcohol intake frequency: holidays/special occasions only Alcohol type: wine Comment: aware of trip hazard and will remove Patient Tobacco Use Status: Former Tobacco user Tobacco use type: Cigarette Years Smoked: 5 e-Cigarette/Vaping Use: Never Used Second Hand Smoke Exposure: No service: No Current occupational status: unemployed Cognitive needs: No Hearing needs: No Vision needs: No Female Reproductive History Menstrual Age of Menarche: 17 Review of Systems Const All systems reviewed & are unremarkable except as noted in HPI and below Physical Exam Const General: cooperative and no acute distress Nutritional Appearance: well nourished Orientation/consciousness: patient oriented x3 Limitations: no limitations HEENT Head: Yes normocephalic and Yes atraumatic Ears: hearing grossly normal bilaterally Resp Effort & Inspection: normal respiratory effort, no audible wheezes, no cough and no respiratory distress Cardio Jugular venous distension: no JVD GI Inspection: Yes normal to inspection Palpation (GI): Soft to palpation, nontender, no guarding and No hepatosplenomegaly present Percussion: Yes normal to percussion Rectal Exam - Female: deferred Skin Other: Warm, dry, no rash Neuro General: patient oriented x3 Extrem General: Yes no clubbing, cyanosis or edema Assessment & Plan Assessment & Plan (1) Gallstones: Code(s): K80.20 - Calculus of gallbladder without cholecystitis without obstruction Category: Medical (2) Transaminitis: Code(s): R74.01 - Elevation of levels of liver transaminase levels Category: Medical Plan 69-year-old female patient presenting with an asymptomatic gallstone noted on recent abdominal ultrasound. The patient did have elevated transaminases possibly related to fatty liver. She has no current gallbladder symptoms. I reviewed the findings of ultrasound in detail with the patient and provided her with a copy of the imaging. As her gallbladder is currently asymptomatic no surgical intervention is required at this time. I reviewed the symptoms typically associated with gallbladder disease encouraged her to call should these develop. She should follow up as needed. Coding Level of Care Code New Pt Level 4 (24620) Diagnoses Gallstones K80.20 Transaminitis R74.01
[2025-03-28 10:32] VITALS: RESP 16; BMI 34.7
== END 2025-03-28 11:23 | disposition home or self-care (01) ==
LOC: HO.HGS 10:21
PROVIDERS: PCP Internal Medicine; Visit Provider Surgery
DX: K80.20 Calculus of gallbladder without cholecystitis without obstruction (principal); R74.01 Elevation of levels of liver transaminase levels
CPT/HCPCS: 99204

== ENCOUNTER → 2025-03-28 10:20 | Outpatient (BNVA) | payer MEDICARE, SELFPAY | PROVIDERS: PCP Internal Medicine; Visit Provider Surgery | DX: K80.20 Calculus of gallbladder without cholecystitis without obstruction (principal); R74.01 Elevation of levels of liver transaminase levels | CPT/HCPCS: 99202 ==